=== PATIENT | female | born 1950 | race American Indian/Alaskan Native ===

== ENCOUNTER 2017-05-31 20:53 | Emergency (ER) | payer MEDICARE, MEDICAID ==
[2017-05-31 21:01] VITALS: BP 160/82
--- NOTE | 2017-05-31 21:12 | EDM.PDOC ---
ED HPI GENERAL MEDICAL PROBLEM - General Chief Complaint: Chest Pain Stated Complaint: BREATHING IS NOT RIGHT, [id number] Time Seen by Provider: 05/31/17 21:08 Source of Information: Reports: Patient, Family, RN, RN Notes Reviewed History Limitations: Reports: No Limitations - History of Present Illness INITIAL COMMENTS - FREE TEXT/NARRATIVE: Pt presents to the ER with c/o left leg pain that began Wednesday after her dialysis session. She states tonight when she laid down she felt quite short of breath, and then experienced some chest pain. She states she is not having any chest pain at this time and the SOB has improved. She admits to chills and anxiety at times. She denies fever, N/V/D, cough, or cold. She states she has a history of AR in the past, renal failure, HTN, and DMII. Onset: Gradual Onset Date: 05/29/17 Location: Reports: Chest, Lower Extremity, Left Quality: Reports: Ache, Throbbing Severity: Mild Improves with: Reports: None Worsens with: Reports: None Associated Symptoms: Reports: Chest Pain, Shortness of Breath. Denies: Cough, cough w sputum, Nausea/Vomiting Left Lower Leg Pain Score (Numeric/FACES): 8 - Related Data Allergies Allergy/AdvReac Type Severity Reaction Status Date / Time acetaminophen [From Tylenol] Allergy Cannot Verified 06/23/16 20:08 Remember codeine Allergy Difficulty Verified 06/23/16 20:08 Breathing Iodinated Contrast- Oral and Allergy Difficulty Verified 06/23/16 20:[address] dye Allergy Renal Uncoded 04/24/16 13:38 Failure Home Meds: Home Meds Calcium Acetate [PhosLo] 667 mg PO TIDAC 09/03/14 [History] Omeprazole [Omeprazole] 20 mg PO DAILY 07/17/15 [History] Aspirin [Halfprin] 81 mg PO DAILY 09/24/15 [History] Cholecalciferol (Vitamin D3) [Vitamin D3] 1,000 unit PO DAILY 01/23/16 [History] Folic Acid/Vitamin B Comp W-C [Dialyvite] 1 tab PO DAILY 01/23/16 [History] Insulin Detemir [Levemir Flextouch] 28 unit SQ DAILY 01/23/16 [History] Simvastatin [Zocor] 20 mg PO DAILY 01/23/16 [History] oxyCODONE 5 mg PO BID PRN 01/23/16 [History] amLODIPine [Norvasc] 5 mg PO DAILY 01/29/16 [History] Past Medical History HEENT History: Reports: Impaired Vision Other HEENT History: legally blind Cardiovascular History: Reports: Afib, Angina, CAD, High Cholesterol, Hypertension, AR, Stents Respiratory History: Reports: None Gastrointestinal History: Reports: Colon Polyp Genitourinary History: Reports: Chronic Renal Insuffiency, Dialysis Other Genitourinary History: HX OF NEPHROTIC SYNDROME Other OB/BYN History: hyst at age 24yo Musculoskeletal History: Reports: Other (See Below) Other Musculoskeletal History: deteriorating spine Neurological History: Reports: Neuropathy, Diabetic Psychiatric History: Reports: None Endocrine/Metabolic History: Reports: Diabetes, Type II, IDDM Hematologic History: Reports: Anemia, Blood Transfusion(s), Iron Deficiency Immunologic History: Reports: Immunosuppression Oncologic (Cancer) History: Reports: None Other Dermatologic History: MRSA - Infectious Disease History Infectious Disease History: Reports: Chicken Pox, Measles, Mumps - Past Surgical History Cardiovascular Surgical History: Reports: Other (See Below) Social & Family History - Family History Family Medical History: Noncontributory - Tobacco Use Smoking Status *Q: Former Smoker Years of Tobacco use: 30 Packs/Tins Daily: 0.5 Used Tobacco, but Quit: Yes Month Tobacco Last Used: 2013 Second Hand Smoke Exposure: No - Caffeine Use Caffeine Use: Reports: None - Alcohol Use Days Per Week of Alcohol Use: 1 Number of Drinks Per Day: 3 Total Drinks Per Week: 3 - Recreational Drug Use Recreational Drug Use: No - Living Situation & Occupation Living situation: Reports: , with Spouse, with Family Occupation: Disabled ED ROS GENERAL - Review of Systems Review Of Systems: ROS reveals no pertinent complaints other than HPI. ED EXAM, GENERAL - Physical Exam Exam: See Below Exam Limited By: No Limitations General Appearance: Alert, WD/WN, No Apparent Distress Eye Exam: Bilateral Eye: Other (Eyes closed, patient legally blind) Ears: Normal External Exam, Hearing Grossly Normal Nose: Normal Inspection Throat/Mouth: Normal Inspection, Normal Voice, No Airway Compromise Head: Atraumatic, Normocephalic Neck: Normal Inspection, Supple, Non-Tender, Full Range of Motion Respiratory/Chest: No Respiratory Distress, No Accessory Muscle Use, Chest Non- Tender, Crackles (throughout) Cardiovascular: Normal Peripheral Pulses, Regular Rate, Rhythm, No Edema, No Gallop, No JVD, No Rub, Systolic Murmur (+2) Peripheral Pulses: 2+: Radial (L), Radial (R), Dorsalis Pedis (L), Dorsalis Pedis (R) GI/Abdominal: Normal Bowel Sounds, Soft, Non-Tender, No Organomegaly, No Distention, No Abnormal Bruit, No Mass (Female) Exam: Deferred Rectal (Female) Exam: Deferred Back Exam: Normal Inspection, Full Range of Motion Extremities: Normal Inspection, No Pedal Edema, Normal Capillary Refill, Leg Pain, Limited Range of Motion (left leg) Neurological: Alert, Oriented, CN II-XII Intact, Normal Cognition, Normal Gait, No Motor/Sensory Deficits Psychiatric: Normal Affect, Normal Mood Skin Exam: Warm, Dry, Intact, Normal Color, No Rash Lymphatic: No Adenopathy EKG INTERPRETATION EKG Date: 05/31/17 Time: 20:59 Rhythm: NSR Rate (Beats/Min): 79 Course - Vital Signs Last Recorded V/S: Last Vital Signs Temp 97.3 F 05/31/17 20:56 Pulse 82 05/31/17 20:56 Resp 22 H 05/31/17 20:56 BP 160/82 H 05/31/17 20:56 Pulse Ox 100 05/31/17 20:56 - Orders/Labs/Meds Labs: Laboratory Tests 05/31/17 05/31/17 05/31/17 Range/Units 21:14 21:14 21:14 WBC 7.9 (5.0-10.0) 10^3/uL RBC 3.48 L (4.2-5.4) 10^6/uL Hgb 9.7 L D (12.0-16.0) g/dL Hct 31.1 L (37.0-47.0) % MCV 89.4 (80-100) fL MCH 27.9 (27.0-34.0) pg MCHC 31.2 L (33.0-35.0) g/dL Plt Count 245 (150-450) 10^3/uL Neut % (Auto) 72.1 (42.2-75.2) % Lymph % (Auto) 16.3 L (20.5-50.1) % [place] % (Auto) 6.9 (2-8) % Eos % (Auto) 4.2 H (1.0-3.0) % Baso % (Auto) 0.5 (0.0-1.0) % D-Dimer, Quantitative 844 H (0-400) ng/mL Sodium 135 (135-145) mmol/L Potassium 3.9 (3.6-5.0) mmol/L Chloride 99 L (101-111) mmol/L Carbon Dioxide 22.0 (21.0-31.0) mmol/L Anion Gap 17.9 BUN 50 H (7-18) mg/dL Creatinine 7.3 H D (0.6-1.3) mg/dL Est Cr Clr Drug Dosing 7.29 mL/min Estimated GFR (MDRD) 6 BUN/Creatinine Ratio 6.84 Glucose 339 H (74-105) mg/dL Calcium 8.0 L (8.4-10.2) mg/dl Total Bilirubin 0.4 (0.2-1.0) mg/dL AST 21 (10-42) IU/L ALT 16 (10-60) IU/L Alkaline Phosphatase 128 H (42-121) IU/L Troponin I 0.04 H* (0.00-0.02) ng/ml B-Natriuretic Peptide 2450 H (0-100) pg/ml Total Protein 7.3 (6.7-8.2) g/dl Albumin 3.8 (3.2-5.5) g/dl Globulin 3.5 Albumin/Globulin Ratio 1.09 - Radiology Interpretation Free Text/Narrative:: Portable Chest xray: Right basilar opacity, correlate for sx of pneumonia. Mild interstitial edema cannot be excluded. See rad report Departure - Departure Time of Disposition: 22:31 Disposition: DC/Tfer to [facility] 02 Reason for Transfer *Q: Other Condition: Fair Clinical Impression: Chronic renal disease, stage 5, glomerular filtration rate (GFR) less than or equal to 15 mL/min/1.73 square meter, Elevated d-dimer, SOB (shortness of breath ) Congestive heart failure Qualifiers: Congestive heart failure type: unspecified congestive heart failure type Congestive heart failure chronicity: chronic Qualified Code(s): I50.9 - Heart failure, unspecified Chest pain Qualifiers: Chest pain type: chest pain on breathing Qualified Code(s): R07.1 - Chest pain on breathing; R07.81 - Pleurodynia Forms: ED Department Discharge, Interfacility Transfer ES
--- NOTE | 2017-06-02 13:34 | EKG ---
05/31/2017 - KIRTI RUIZ - [facility] 12-lead EKG shows normal sinus rhythm with no significant ST elevation or ST depression. Nonspecific EKG tracings on lead V4 and V5. No significant ST elevation or ST depression. Nonspecific interventricular conduction delay noted. [facility] /[id number]
== END 2017-05-31 22:37 ==
LOC: DL.ED 20:53
DX: I13.2 Hypertensive heart and chronic kidney disease with heart failure and with stage 5 chronic kidney disease, or end stage renal disease (principal); I50.9 Heart failure, unspecified; N18.5 Chronic kidney disease, stage 5; E78.00 Pure hypercholesterolemia, unspecified; E11.22 Type 2 diabetes mellitus with diabetic chronic kidney disease; Z88.6 Allergy status to analgesic agent; Z91.041 Radiographic dye allergy status; Z79.899 Other long term (current) drug therapy; Z79.82 Long term (current) use of aspirin; Z87.891 Personal history of nicotine dependence
CPT/HCPCS: 36415; 71010; 80053; 83880; 84484; 85025; 85379; 93005; 93010; 99285

== ENCOUNTER 2017-07-18 16:13 | Emergency (ER) | payer MEDICARE, MEDICAID ==
[2017-07-18] MEDS ORDERED: Sodium Chloride 0.9% 10 ML Syringe FLUSH PRN (17:46)
[2017-07-18 18:32] LABS: ANION GAP 17.1
[2017-07-18] MEDS ORDERED: Sodium Polystyrene Sulfonate 15 GM/60 ML Susp 60 ML Bot PO ONE (18:45)
[2017-07-18] MEDS ORDERED: Calcium Chloride 10% 1 GM/10 ML Syringe IVPUSH ONE (18:45)
[2017-07-18] MEDS ORDERED: Albuterol 0.083% 2.5 MG/3 ML Neb Soln NEB ONE (18:47)
[2017-07-18] MEDS ORDERED: Insulin Regular, Human 100 Units/ML 3 ML Vial IV ONE (18:48)
[2017-07-18] MEDS ORDERED: 50% Dextrose in Water 50 ML Syringe IVPUSH ONE (18:49)
[2017-07-18 19:15] VITALS: BP 161/76
--- NOTE | 2017-07-18 20:18 | EDM.PDOC ---
ED HPI GENERAL MEDICAL PROBLEM - General Chief Complaint: Cardiovascular Problem Stated Complaint: IN BY AMBULANCE Time Seen by Provider: 07/18/17 17:36 Source of Information: Reports: Patient, EMS, EMS Notes Reviewed, Family, RN, RN Notes Reviewed History Limitations: Reports: No Limitations - History of Present Illness INITIAL COMMENTS - FREE TEXT/NARRATIVE: Pt presents to the ER per [facility] with c/o sore throat and body aches. She states she has been having abdominal pain and has not been feeling well for the past few days. She states she did not go to dialysis yesterday due to not feeling well. She admits to an upset stomach, diarrhea, SOB, a non-productive cough. Pt denies fever, chills, or chest pains although admits to palpitations at times. Onset: Gradual Abdominal Pain Score (Numeric/FACES): 5 - Related Data Allergies Allergy/AdvReac Type Severity Reaction Status Date / Time acetaminophen [From Tylenol] Allergy Cannot Verified 07/18/17 16:24 Remember codeine Allergy Difficulty Verified 07/18/17 16:24 Breathing Iodinated Contrast- Oral and Allergy Difficulty Verified 07/18/17 16:[address] dye Allergy Renal Uncoded 07/18/17 16:24 Failure Home Meds: Home Meds Calcium Acetate [PhosLo] 667 mg PO TIDAC 09/03/14 [History] Omeprazole [Omeprazole] 20 mg PO DAILY 07/17/15 [History] Aspirin [Halfprin] 81 mg PO DAILY 09/24/15 [History] Cholecalciferol (Vitamin D3) [Vitamin D3] 1,000 unit PO DAILY 01/23/16 [History] Folic Acid/Vitamin B Comp W-C [Dialyvite] 1 tab PO DAILY 01/23/16 [History] Insulin Detemir [Levemir Flextouch] 28 unit SQ DAILY 01/23/16 [History] Simvastatin [Zocor] 20 mg PO DAILY 01/23/16 [History] oxyCODONE 5 mg PO BID PRN 01/23/16 [History] amLODIPine [Norvasc] 5 mg PO DAILY 01/29/16 [History] Past Medical History HEENT History: Reports: Impaired Vision Other HEENT History: legally blind Cardiovascular History: Reports: Afib, Angina, CAD, High Cholesterol, Hypertension, PA, Stents Respiratory History: Reports: None Gastrointestinal History: Reports: Colon Polyp Genitourinary History: Reports: Chronic Renal Insuffiency, Dialysis Other Genitourinary History: HX OF NEPHROTIC SYNDROME [employer] History: Reports: None Other OB/BYN History: hyst at age 24yo Musculoskeletal History: Reports: Other (See Below) Other Musculoskeletal History: deteriorating spine Neurological History: Reports: Neuropathy, Diabetic Psychiatric History: Reports: None Endocrine/Metabolic History: Reports: Diabetes, Type II, IDDM Hematologic History: Reports: Anemia, Blood Transfusion(s), Iron Deficiency Immunologic History: Reports: Immunosuppression Oncologic (Cancer) History: Reports: None Other Dermatologic History: MRSA - Infectious Disease History Infectious Disease History: Reports: Chicken Pox, Measles, Mumps - Past Surgical History Cardiovascular Surgical History: Reports: Other (See Below) Social & Family History - Family History Family Medical History: Noncontributory - Tobacco Use Smoking Status *Q: Former Smoker Years of Tobacco use: 30 Packs/Tins Daily: 0.5 Used Tobacco, but Quit: Yes Month Tobacco Last Used: 2013 Tobacco Use Comment: patient denies Second Hand Smoke Exposure: No - Caffeine Use Caffeine Use: Reports: None - Alcohol Use Days Per Week of Alcohol Use: 1 Number of Drinks Per Day: 3 Total Drinks Per Week: 3 - Recreational Drug Use Recreational Drug Use: No - Living Situation & Occupation Living situation: Reports: , with Spouse, with Family Occupation: Disabled ED ROS GENERAL - Review of Systems Review Of Systems: ROS reveals no pertinent complaints other than HPI. ED EXAM, GENERAL - Physical Exam Exam: See Below Exam Limited By: No Limitations General Appearance: Alert, WD/WN, No Apparent Distress Eye Exam: Bilateral Eye: Other (Eyes closed bilaterally, pt legally blind) Ears: Normal External Exam, Hearing Grossly Normal Nose: Normal Inspection Throat/Mouth: Normal Inspection, Normal Lips, Normal Oropharynx, Normal Voice, No Airway Compromise Head: Atraumatic, Normocephalic Neck: Normal Inspection, Supple, Non-Tender, Full Range of Motion Respiratory/Chest: No Respiratory Distress, No Accessory Muscle Use, Chest Non- Tender, Decreased Breath Sounds Cardiovascular: Normal Peripheral Pulses, No Edema, No Gallop, No JVD, No Murmur , No Rub, Irregularly Irregular Peripheral Pulses: 2+: Radial (L), Radial (R) GI/Abdominal: Normal Bowel Sounds, Soft, No Organomegaly, No Distention, No Mass , Tender (Female) Exam: Deferred Rectal (Female) Exam: Deferred Back Exam: Normal Inspection, Full Range of Motion Extremities: Normal Inspection, Normal Range of Motion, Non-Tender, No Pedal Edema, Normal Capillary Refill, Other (AV fistula left upper arm) Neurological: Alert, Oriented, CN II-XII Intact, Normal Cognition, Normal Gait, Normal Reflexes, No Motor/Sensory Deficits Psychiatric: Normal Affect, Normal Mood Skin Exam: Warm, Dry, Intact, Normal Color, No Rash Lymphatic: No Adenopathy EKG INTERPRETATION EKG Date: 07/18/17 Course - Vital Signs Last Recorded V/S: Last Vital Signs Temp 97.2 F 07/18/17 19:13 Pulse 75 07/18/17 19:13 Resp 16 07/18/17 19:13 BP 161/76 H 07/18/17 19:13 Pulse Ox 100 07/18/17 19:13 - Orders/Labs/Meds Labs: Laboratory Tests 07/18/17 07/18/17 Range/Units 18:08 18:08 WBC 8.2 (5.0-10.0) 10^3/uL RBC 3.91 L (4.2-5.4) 10^6/uL Hgb 10.8 L (12.0-16.0) g/dL Hct 34.7 L (37.0-47.0) % MCV 88.7 (80-100) fL MCH 27.6 (27.0-34.0) pg MCHC 31.1 L (33.0-35.0) g/dL Plt Count 200 (150-450) 10^3/uL Neut % (Auto) 76.8 H (42.2-75.2) % Lymph % (Auto) 13.4 L (20.5-50.1) % [place] % (Auto) 5.6 (2-8) % Eos % (Auto) 3.3 H (1.0-3.0) % Baso % (Auto) 0.9 (0.0-1.0) % Sodium 134 L (135-145) mmol/L Potassium 6.1 H D (3.6-5.0) mmol/L Chloride 99 L (101-111) mmol/L Carbon Dioxide 24.0 (21.0-31.0) mmol/L Anion Gap 17.1 BUN 69 H (7-18) mg/dL Creatinine 7.6 H (0.6-1.3) mg/dL Est Cr Clr Drug Dosing 7.27 mL/min Estimated GFR (MDRD) 5 BUN/Creatinine Ratio 9.07 Glucose 220 H (74-105) mg/dL Calcium 8.6 (8.4-10.2) mg/dl Total Bilirubin 0.6 (0.2-1.0) mg/dL AST 21 (10-42) IU/L ALT 16 (10-60) IU/L Alkaline Phosphatase 102 (42-121) IU/L Troponin I 0.04 H* (0.00-0.02) ng/ml Total Protein 7.3 (6.7-8.2) g/dl Albumin 3.7 (3.2-5.5) g/dl Globulin 3.6 Albumin/Globulin Ratio 1.03 Meds: Medications Discontinued Medications Generic Name Dose Route Start Last Admin Trade Name Freq PRN Reason Stop Dose Admin Albuterol 2.5 mg 07/18/17 18:47 07/18/17 18:58 Proventil Neb Soln NEB 07/18/17 18:48 2.5 mg ONETIME ONE Administration Calcium Chloride 1 gm 07/18/17 18:45 07/18/17 19:00 Calcium Chloride 10% IVPUSH 07/18/17 18:46 1 gm ONETIME ONE Administration Dextrose/Water 50 ml 07/18/17 18:49 07/18/17 19:07 Dextrose 50% In Water IVPUSH 07/18/17 18:50 50 ml ONETIME ONE Administration Insulin Human Regular 10 unit 07/18/17 18:48 07/18/17 19:04 Humulin R IV 07/18/17 18:49 10 units ONETIME ONE Administration Protocol Loperamide HCl 2 mg 07/18/17 20:41 07/18/17 20:46 Imodium PO 07/18/17 20:42 2 mg ONETIME ONE Administration Sodium Chloride 10 ml 07/18/17 17:46 07/18/17 19:09 Saline Flush FLUSH 10 ml ASDIRECTED PRN Administration Keep Vein Open Sodium Polystyrene Sulfonate 30 gm 07/18/17 18:45 07/18/17 19:08 Kayexalate PO 07/18/17 18:46 30 gm ONETIME ONE Administration - Re-Assessments/Exams Free Text/Narrative Re-Assessment/Exam: 07/18/17 20:42 Upon initial presentation pt EKG showed a sinus rhythm. The rhythm became irregular with significant pauses. Pt case discussed with Dr. Griffith as well as Dr. Fisher. The patient was accepted by Dr. Fisher. No transport is available at this time due to other transfers. Pt will be transferred out with the next available team. Departure - Departure Time of Disposition: 21:40 Disposition: DC/Tfer to [facility] 02 Reason for Transfer *Q: Primary PCI Indicated Condition: Fair Clinical Impression: Hyperkalemia Arrhythmia Qualifiers: Arrhythmia type: unspecified cardiac arrhythmia Qualified Code(s): I49.9 - Cardiac arrhythmia, unspecified Chronic renal failure Qualifiers: Chronic kidney disease stage: stage 5 Qualified Code(s): N18.5 - Chronic kidney disease, stage 5 Referrals: PCP,None [Primary Care Provider] - Forms: ED Department Discharge, Interfacility Transfer ES
[2017-07-18] MEDS ORDERED: Loperamide 2 MG Cap PO ONE (20:41)
--- NOTE | 2017-07-19 18:00 | EKG ---
07/18/2017 - KIRTI RUIZ - TIME: 1614 hours. FINDINGS: EKG showed sinus rhythm, heart rate of 70 beats per minute. Normal axis. ST depressions on lateral leads. [facility] /[id number] MTDD
--- NOTE | 2017-08-20 07:39 | EKG ---
07/18/2017 - KIRTI RUIZ - FINDINGS: EKG done on a 66-year-old female on 05:40, July 18, 2017, showed sinus rhythm, heart rate of [address] depressions noted on lateral leads. [facility] /[id number] MTDD
== END 2017-07-18 21:38 ==
LOC: DL.ED 16:13
DX: E87.5 Hyperkalemia (principal); I49.9 Cardiac arrhythmia, unspecified; I12.0 Hypertensive chronic kidney disease with stage 5 chronic kidney disease or end stage renal disease; E11.22 Type 2 diabetes mellitus with diabetic chronic kidney disease; N18.5 Chronic kidney disease, stage 5; E11.40 Type 2 diabetes mellitus with diabetic neuropathy, unspecified; E78.00 Pure hypercholesterolemia, unspecified; I25.2 Old myocardial infarction; Z88.6 Allergy status to analgesic agent; Z88.5 Allergy status to narcotic agent; Z91.041 Radiographic dye allergy status; Z79.4 Long term (current) use of insulin; Z79.82 Long term (current) use of aspirin; Z87.891 Personal history of nicotine dependence
CPT/HCPCS: 36415; 80053; 84484; 85025; 87804; 93005; 93010; 96374; 96375; 99285; A9270; J1815; J7050; J7620; J7060

== ENCOUNTER 2018-09-08 11:31 | Emergency (ER) | payer MEDICARE, MEDICAID ==
[2018-09-08 11:46] VITALS: BP 170/74
[2018-09-08] MEDS ORDERED: Aspirin 81 MG Tab.Chew PO ONE (12:06)
--- NOTE | 2018-09-08 12:28 | EDM.PDOC ---
ED HPI GENERAL MEDICAL PROBLEM - General Chief Complaint: Chest Pain Stated Complaint: CHEST HURTS Time Seen by Provider: 09/08/18 12:15 Source of Information: Reports: Patient History Limitations: Reports: No Limitations - History of Present Illness INITIAL COMMENTS - FREE TEXT/NARRATIVE: This 67 yo female patient was brought to the ED from Dialysis due to right sided chest pain. The patient reports her right sided chest pain started this morning at about 0600. The patient went to her dialysis appointment, but dialysis was stopped after 30 minutes because of increased right sided chest pain. The patient initially reported to nursing staff that she was having right sided chest pain upon arrival in the ED. By the time the EKG, lab and nursing assessment was done, the patient reported her pain was mostly in the right side of her abdomen. The patient reports she does have an Echo scheduled with Dr. Tate on Wednesday. Onset: Today Onset Date: 09/08/18 Onset Time: 06:00 Duration: Constant Location: Reports: Chest (initially), Abdomen (during provider assessment) Quality: Reports: Ache, Dull Severity: Moderate Improves with: Reports: Rest Worsens with: Reports: Other Context: Reports: Other Associated Symptoms: Reports: Chest Pain Right Chest Pain Score (Numeric/FACES): 6 - Related Data Allergies Allergy/AdvReac Type Severity Reaction Status Date / Time codeine Allergy Severe Difficulty Verified 09/08/18 11:46 Breathing Iodinated Contrast- Oral and Allergy Severe Difficulty Verified 09/08/18 11:46 IV Dye Breathing acetaminophen [From Tylenol] Allergy Mild Other Verified 09/08/18 11:46 gabapentin Allergy Other Verified 09/08/18 11:46 ct dye Allergy Severe Renal Uncoded 09/08/18 11:46 Failure Home Meds: Home Meds Calcium Acetate [PhosLo] 667 mg PO TIDAC 09/03/14 [History] Omeprazole 20 mg PO DAILY 07/17/15 [History] Insulin Detemir [Levemir Flextouch] 10 unit SQ DAILY 01/23/16 [History] Simvastatin [Zocor] 20 mg PO DAILY 01/23/16 [History] amLODIPine [Norvasc] 5 mg PO DAILY 01/29/16 [History] Past Medical History HEENT History: Reports: Impaired Vision Other HEENT History: legally blind Cardiovascular History: Reports: Afib, Angina, CAD, High Cholesterol, Hypertension, [place], Pacemaker, Stents, Other (See Below) Other Cardiovascular History: DEFIBRILLATOR Respiratory History: Reports: COPD Gastrointestinal History: Reports: Cholelithiasis, Chronic Diarrhea, Colon Polyp , GERD, Other (See Below) Other Gastrointestinal History: GROWTH IN COLON Genitourinary History: Reports: Chronic Renal Insuffiency, Dialysis Other Genitourinary History: HX OF NEPHROTIC SYNDROME CYBER ANALYST History: Reports: None, Other CYBER ANALYST History: hyst at age 24yo Musculoskeletal History: Reports: Other (See Below) Other Musculoskeletal History: deteriorating spine Neurological History: Reports: Neuropathy, Diabetic Psychiatric History: Reports: Panic Attack Other Psychiatric History: Hx of panic attacks; has not has any for years Endocrine/Metabolic History: Reports: Diabetes, Type II, IDDM, Obesity/BMI 30+ Hematologic History: Reports: Anemia, Blood Transfusion(s), Iron Deficiency Immunologic History: Reports: Immunosuppression Oncologic (Cancer) History: Reports: None Dermatologic History: Reports: Other (See Below) Other Dermatologic History: MRSA - Infectious Disease History Infectious Disease History: Reports: Chicken Pox, Measles, MRSA, Mumps, Other ( See Below) Other Infectious Disease History: MRSA noted in chart, patient denies having it - Past Surgical History Cardiovascular Surgical History: Reports: Other (See Below) Other Cardiovascular Surgeries/Procedures: had faulty heart valves fixed Respiratory Surgical History: Reports: None GI Surgical History: Reports: Cholecystectomy, Colonoscopy, EGD, Polypectomy Female Surgical History: Reports: Hysterectomy Endocrine Surgical History: Reports: None Musculoskeletal Surgical History: Reports: None Social & Family History - Family History Family Medical History: Noncontributory - Tobacco Use Smoking Status *Q: Never Smoker Second Hand Smoke Exposure: No - Caffeine Use Caffeine Use: Reports: Coffee, Tea Caffeine Use Comment: 1 CUP OCCASSIONALLY OF COFFEE. 3 CUPS TEA - Recreational Drug Use Recreational Drug Use: No - Living Situation & Occupation Living situation: Reports: , with Spouse, with Family Occupation: Disabled ED ROS GENERAL - Review of Systems Review Of Systems: ROS reveals no pertinent complaints other than HPI. ED EXAM, GENERAL - Physical Exam Exam: See Below Exam Limited By: No Limitations General Appearance: Alert, WD/WN, Mild Distress, Obese Eye Exam: Bilateral Eye: EOMI, Other (The patient is leagally blind, but can see shadows.) Ears: Normal External Exam, Normal Canal, Hearing Grossly Normal, Normal TMs Nose: Normal Inspection, Normal Mucosa, No Blood Throat/Mouth: Normal Inspection, Normal Lips, Normal Teeth, Normal Gums, Normal Oropharynx, Normal Voice, No Airway Compromise Head: Atraumatic, Normocephalic Neck: Normal Inspection, Supple, Non-Tender, Full Range of Motion Respiratory/Chest: No Respiratory Distress Cardiovascular: Normal Peripheral Pulses, Regular Rate, Rhythm, Systolic Murmur , Other (mild pedial edema) GI/Abdominal: No Organomegaly, No Distention, No Abnormal Bruit, No Mass, Pelvis Stable, Tender (RUQ, RLQ and LUQ) (Female) Exam: Deferred Rectal (Female) Exam: Deferred Back Exam: Normal Inspection, Full Range of Motion, NT Extremities: Normal Range of Motion, Non-Tender, Normal Capillary Refill, Pedal Edema (mild) Neurological: Alert, Oriented, CN II-XII Intact, Normal Cognition Psychiatric: Normal Affect, Normal Mood Skin Exam: Warm, Dry, Intact, Normal Color, No Rash Lymphatic: No Adenopathy Course - Vital Signs Last Recorded V/S: Last Vital Signs Temp 36.6 C 09/08/18 11:38 Pulse 69 09/08/18 11:38 Resp 18 09/08/18 11:38 BP 170/74 H 09/08/18 11:38 Pulse Ox 100 09/08/18 11:38 - Orders/Labs/Meds Orders: Active Orders 24 hr Category Date Time Status EKG Documentation Completion [RC] URGENT Care 09/08/18 11:54 Active Labs: Laboratory Tests 09/08/18 09/08/18 09/08/18 Range/Units 12:18 12:18 12:18 WBC 5.4 (5.0-10.0) 10^3/uL RBC 4.00 L (4.2-5.4) 10^6/uL Hgb 11.8 L D (12.0-16.0) g/dL Hct 37.4 (37.0-47.0) % MCV 93.5 D (80-100) fL MCH 29.5 (27.0-34.0) pg MCHC 31.6 L (33.0-35.0) g/dL Plt Count 157 (150-450) 10^3/uL Neut % (Auto) 71.1 (42.2-75.2) % Lymph % (Auto) 17.5 L (20.5-50.1) % [place] % (Auto) 7.9 (2-8) % Eos % (Auto) 3.3 H (1.0-3.0) % Baso % (Auto) 0.2 (0.0-1.0) % D-Dimer, Quantitative (0-400) ng/mL Sodium 133 L (135-145) mmol/L Potassium 4.1 (3.6-5.0) mmol/L Chloride 94 L (101-111) mmol/L Carbon Dioxide 23.0 (21.0-31.0) mmol/L Anion Gap 20.1 BUN 44 H (7-18) mg/dL Creatinine 6.2 H D (0.6-1.3) mg/dL Est Cr Clr Drug Dosing 8.47 mL/min Estimated GFR (MDRD) 7 BUN/Creatinine Ratio 7.09 Glucose 97 (74-105) mg/dL Calcium 8.9 (8.4-10.2) mg/dl Total Bilirubin 1.2 H (0.2-1.0) mg/dL AST 25 (10-42) IU/L ALT 16 (10-60) IU/L Alkaline Phosphatase 216 H (42-121) IU/L Troponin I 0.05 H* (0.00-0.02) ng/ml B-Natriuretic Peptide 3010 H (0-100) pg/ml Total Protein 8.4 H (6.7-8.2) g/dl Albumin 4.3 (3.2-5.5) g/dl Globulin 4.1 Albumin/Globulin Ratio 1.05 03/21/19 Range/Units 12:18 WBC (5.0-10.0) 10^3/uL RBC (4.2-5.4) 10^6/uL Hgb (12.0-16.0) g/dL Hct (37.0-47.0) % MCV (80-100) fL MCH (27.0-34.0) pg MCHC (33.0-35.0) g/dL Plt Count (150-450) 10^3/uL Neut % (Auto) (42.2-75.2) % Lymph % (Auto) (20.5-50.1) % [place] % (Auto) (2-8) % Eos % (Auto) (1.0-3.0) % Baso % (Auto) (0.0-1.0) % D-Dimer, Quantitative 957 H (0-400) ng/mL Sodium (135-145) mmol/L Potassium (3.6-5.0) mmol/L Chloride (101-111) mmol/L Carbon Dioxide (21.0-31.0) mmol/L Anion Gap BUN (7-18) mg/dL Creatinine (0.6-1.3) mg/dL Est Cr Clr Drug Dosing mL/min Estimated GFR (MDRD) BUN/Creatinine Ratio Glucose (74-105) mg/dL Calcium (8.4-10.2) mg/dl Total Bilirubin (0.2-1.0) mg/dL AST (10-42) IU/L ALT (10-60) IU/L Alkaline Phosphatase (42-121) IU/L Troponin I (0.00-0.02) ng/ml B-Natriuretic Peptide (0-100) pg/ml Total Protein (6.7-8.2) g/dl Albumin (3.2-5.5) g/dl Globulin Albumin/Globulin Ratio Meds: Medications Discontinued Medications Generic Name Dose Route Start Last Admin Trade Name Freq PRN Reason Stop Dose Admin Aspirin 324 mg 09/08/18 12:06 09/08/18 12:21 Aspirin PO 09/08/18 12:07 324 mg ONETIME ONE Administration - Re-Assessments/Exams Free Text/Narrative Re-Assessment/Exam: 09/08/18 13:02 A call was placed to Dr. Tate (Cardiology). Dr. Tate was advised of the examination, x-ray, lab and EKG results from the visit with the patient. Dr. Tate agreed that the symptoms appear to be non-cardiac in origin. 09/08/18 14:44 The patient and family were advised of the remainder of the results. A CT of her abdomen was ordered for further evaluation of her abdominal pain. Departure - Departure Time of Disposition: 15:50 Disposition: Home, Self-Care 01 Condition: Fair Clinical Impression: Abdominal pain Qualifiers: Abdominal location: generalized Qualified Code(s): R10.84 - Generalized abdominal pain Ascites Qualifiers: Ascites type: other type Qualified Code(s): R18.8 - Other ascites Forms: ED Department Discharge Care Plan Goals: The patient and family were advised of the examination, lab, EKG, x-ray and CT results during the visit. The patient was given an oral dose of [place] (5/325) while in the emergency department. The patient was encouraged to follow-up with her primary care facility for continued evaluation and further treatment. If the patient has any additional symptoms or concerns, the patient should either return to the emergency department or visit her primary care facility. - My Orders Last 24 Hours: My Active Orders 09/08/18 11:54 EKG Documentation Completion [RC] URGENT - Assessment/Plan Last 24 Hours: My Active Orders 09/08/18 11:54 EKG Documentation Completion [RC] URGENT
[2018-09-08 12:45] LABS: ANION GAP 20.1
--- NOTE | 2018-09-08 12:45 | CR ---
Clinical history: 67-year-old female chest pain. Interpretation: Upright AP portable chest film confirms new cardiac pacemaker since exam 31 May 2017 (leads intact). External court recording monitor leads. Chronic cardiomyopathy with a left ventricular configuration but pulmonary vascularity relatively less congested than 2017. No new signs of alveolar edema or dependent pleural fluid accumulation. No new lung mass, focal lobar pneumonia, atelectasis or collapse. No pneumothorax. CONCLUSION: Subtle improvement venous congestion noted on 31 May 2017 exam.
--- NOTE | 2018-09-08 14:28 | CR ---
Clinical history: 67-year-old female with right-sided abdominal pain. Interpretation: Cardiac pacemaker leads upper margin of the film. Surgical clips gallbladder fossa RUQ. Solitary oval phlebolith-like radiopacities lower pelvis on the right. Levorotoscoliosis and multilevel lower lumbar disc disease/arthritis. Lung bases clear. No other foreign bodies and.... no sign of discrete abdominal soft tissue mass lesion or mechanical bowel obstruction. No free intraperitoneal air. Note: *There is a focal collection of gas over the right pubic ramus that could indicate incarcerated small bowel loop (inguinal hernia). Clinical correlation?
--- NOTE | 2018-09-08 15:22 | CT ---
Clinical history: 67-year-old hypertensive/diabetic female complaining of right-sided abdominal pain. History previous "cholecystectomy", hysterectomy and "colon surgery" this afebrile female diagnosed with "cholelithiasis" [address] exam[address] Suggestion "incarcerated loop of small bowel, right inguinal hernia" on plain film. Follow-up evaluation please. Scan technique: Volume acquisition of data emergency unenhanced CT scan of the abdomen and pelvis obtained while the patient was lying supine on the Siemens multi slice scanner [place], [place]. All data archived in the PACS system for storage, reformatting axial/sagittal/coronal planes and study. Interpretation: 1. Large heart and cardiac pacemaker. Asymmetric small dependent subpulmonic pleural effusion on the right. 2. Surgical clips (?) gallbladder fossa, RUQ but... adjacent gallbladder (with dependent intraluminal calcified gallstones). 3. Large volume of free intraperitoneal fluid (ascites) present on previous CT April 2018 but, increased volume today. Note: Ascites new since 27 Oct 2016 exam (appearance gallbladder and RUQ fossa unchanged) 4. Unenhanced liver, stomach, spleen, pancreas and adrenal glands unremarkable. Bilateral scarred, nonobstructed kidneys. 5. Calcified midline uterus. No new abdominal or pelvic mass lesion. No pelvic, mesenteric or retroperitoneal lymphadenopathy. *No ventral wall or inguinal hernias. 6. No sign of mechanical large/small bowel obstruction or free intraperitoneal air. Large diverticula in the ascending, right colon. 7. Multilevel lower lumbar disc disease with arthritic changes of the spine. CONCLUSION: Diverticulosis right colon. Diseased gallbladder. Ascites. Abnormal heart and small right pleural effusion.
[2018-09-08] MEDS ORDERED: Acetaminophen/HYDROcodone 325-5 MG Tab ONE (15:52)
[2018-09-08] MEDS ORDERED: Acetaminophen/HYDROcodone 325-5 MG Tab PO ONE (16:06)
== END 2018-09-08 16:05 | disposition home or self-care (01) ==
LOC: DL.ED 16:05
DX: R10.84 Generalized abdominal pain (principal); R18.8 Other ascites; I12.0 Hypertensive chronic kidney disease with stage 5 chronic kidney disease or end stage renal disease; N18.6 End stage renal disease; D63.1 Anemia in chronic kidney disease; E11.22 Type 2 diabetes mellitus with diabetic chronic kidney disease; I48.91 Unspecified atrial fibrillation; I25.2 Old myocardial infarction; E78.00 Pure hypercholesterolemia, unspecified; J44.9 Chronic obstructive pulmonary disease, unspecified; Z88.5 Allergy status to narcotic agent; Z88.8 Allergy status to other drugs, medicaments and biological substances; Z79.899 Other long term (current) drug therapy; Z79.4 Long term (current) use of insulin; Z99.2 Dependence on renal dialysis
CPT/HCPCS: 36415; 71045; 74019; 74176; 80053; 83880; 84484; 85025; 85379; 93005; 99285; A9270

== ENCOUNTER 2018-11-14 19:24 | Emergency (ER) | payer MEDICARE, MEDICAID ==
[2018-11-14 20:01] LABS: ANION GAP 14.5
--- NOTE | 2018-11-14 21:07 | EDM.PDOC ---
ED HPI GENERAL MEDICAL PROBLEM - General Chief Complaint: Upper Extremity Injury/Pain Stated Complaint: SHOULDER PAIN Time Seen by Provider: 11/14/18 19:40 Source of Information: Reports: Patient History Limitations: Reports: No Limitations - History of Present Illness INITIAL COMMENTS - FREE TEXT/NARRATIVE: ED with c/o right shoulder pain last yuliana started after onset of diarrhea. Chronic diarrhea , no change from usual. Denies shoulder pain at present, No chest pain or difficulty breathing, No fever or chills. Dialysis patient. Due in am. - Related Data Allergies Allergy/AdvReac Type Severity Reaction Status Date / Time codeine Allergy Severe Difficulty Verified 09/08/18 11:46 Breathing Iodinated Contrast- Oral and Allergy Severe Difficulty Verified 09/08/18 11:46 IV Dye Breathing acetaminophen [From Tylenol] Allergy Mild Other Verified 09/08/18 11:46 gabapentin Allergy Other Verified 09/08/18 11:46 ct dye Allergy Severe Renal Uncoded 09/08/18 11:46 Failure Home Meds: Home Meds Calcium Acetate [PhosLo] 667 mg PO TIDAC 09/03/14 [History] Omeprazole 20 mg PO DAILY 07/17/15 [History] Simvastatin [Zocor] 20 mg PO DAILY 01/23/16 [History] amLODIPine [Norvasc] 5 mg PO DAILY 01/29/16 [History] Past Medical History HEENT History: Reports: Impaired Vision Other HEENT History: legally blind Cardiovascular History: Reports: Afib, Angina, CAD, High Cholesterol, Hypertension, [place], Pacemaker, Stents, Other (See Below) Other Cardiovascular History: DEFIBRILLATOR Respiratory History: Reports: COPD Gastrointestinal History: Reports: Cholelithiasis, Chronic Diarrhea, Colon Polyp , GERD, Other (See Below) Other Gastrointestinal History: GROWTH IN COLON Genitourinary History: Reports: Chronic Renal Insuffiency, Dialysis Other Genitourinary History: HX OF NEPHROTIC SYNDROME POST SECONDARY PROFESSIONAL History: Reports: None, Other POST SECONDARY PROFESSIONAL History: hyst at age 24yo Musculoskeletal History: Reports: Other (See Below) Other Musculoskeletal History: deteriorating spine Neurological History: Reports: Neuropathy, Diabetic Psychiatric History: Reports: Panic Attack Other Psychiatric History: Hx of panic attacks; has not has any for years Endocrine/Metabolic History: Reports: Diabetes, Type II, IDDM, Obesity/BMI 30+ Hematologic History: Reports: Anemia, Blood Transfusion(s), Iron Deficiency Immunologic History: Reports: Immunosuppression Oncologic (Cancer) History: Reports: None Dermatologic History: Reports: Other (See Below) Other Dermatologic History: MRSA - Infectious Disease History Infectious Disease History: Reports: Chicken Pox, Measles, MRSA, Mumps, Other ( See Below) Other Infectious Disease History: MRSA noted in chart, patient denies having it - Past Surgical History Cardiovascular Surgical History: Reports: Other (See Below) Other Cardiovascular Surgeries/Procedures: had faulty heart valves fixed Respiratory Surgical History: Reports: None GI Surgical History: Reports: Cholecystectomy, Colonoscopy, EGD, Polypectomy Female Surgical History: Reports: Hysterectomy Endocrine Surgical History: Reports: None Musculoskeletal Surgical History: Reports: None Social & Family History - Family History Family Medical History: Noncontributory - Tobacco Use Smoking Status *Q: Never Smoker - Caffeine Use Caffeine Use: Reports: Coffee Caffeine Use Comment: 1 CUP OCCASSIONALLY OF COFFEE. 3 CUPS TEA - Living Situation & Occupation Living situation: Reports: , with Spouse, with Family Occupation: Disabled Review of Systems - Review of Systems Review Of Systems: ROS reveals no pertinent complaints other than HPI. ED EXAM, GENERAL - Physical Exam Exam: See Below Exam Limited By: No Limitations General Appearance: Alert, No Apparent Distress Eye Exam: Bilateral Eye: EOMI Ears: Normal External Exam, Hearing Grossly Normal Nose: Normal Inspection Throat/Mouth: Normal Inspection Head: Atraumatic, Normocephalic Neck: Normal Inspection, Full Range of Motion Respiratory/Chest: No Respiratory Distress, Crackles (bilateral bases) Cardiovascular: Normal Peripheral Pulses, Regular Rate, Rhythm GI/Abdominal: Normal Bowel Sounds, Soft, Non-Tender Back Exam: Full Range of Motion Extremities: Normal Inspection, Normal Range of Motion. No: Limited Range of Motion Neurological: Alert, Oriented, Normal Cognition Psychiatric: Normal Affect, Normal Mood Skin Exam: Warm, Dry, Intact, Normal Color Course - Vital Signs Last Recorded V/S: Last Vital Signs Temp 98.1 F 11/14/18 21:25 Pulse 68 11/14/18 21:25 Resp 18 11/14/18 21:25 BP 124/63 11/14/18 21:25 Pulse Ox 99 11/14/18 21:25 - Orders/Labs/Meds Labs: Laboratory Tests 11/14/18 11/14/18 11/14/18 Range/Units 19:26 19:26 19:26 WBC 6.2 (5.0-10.0) 10^3/uL RBC 3.48 L (4.2-5.4) 10^6/uL Hgb 10.7 L (12.0-16.0) g/dL Hct 32.6 L (37.0-47.0) % MCV 93.7 (80-100) fL MCH 30.7 (27.0-34.0) pg MCHC 32.8 L (33.0-35.0) g/dL Plt Count 162 (150-450) 10^3/uL Neut % (Auto) 73.1 (42.2-75.2) % Lymph % (Auto) 15.6 L (20.5-50.1) % [place] % (Auto) 7.0 (2-8) % Eos % (Auto) 4.1 H (1.0-3.0) % Baso % (Auto) 0.2 (0.0-1.0) % D-Dimer, Quantitative 1540 H (0-400) ng/mL Sodium 135 (135-145) mmol/L Potassium 4.5 (3.6-5.0) mmol/L Chloride 99 L (101-111) mmol/L Carbon Dioxide 26.0 (21.0-31.0) mmol/L Anion Gap 14.5 BUN 36 H (7-18) mg/dL Creatinine 6.5 H (0.6-1.3) mg/dL Est Cr Clr Drug Dosing 7.66 mL/min Estimated GFR (MDRD) 6 BUN/Creatinine Ratio 5.53 Glucose 99 (74-105) mg/dL Lactic Acid (0.5-2.2) mmol/L Calcium 8.7 (8.4-10.2) mg/dl Total Bilirubin 0.8 (0.2-1.0) mg/dL AST 13 (10-42) IU/L ALT 6 L (10-60) IU/L Alkaline Phosphatase 109 (42-121) IU/L CK-MB (CK-2) (0.4-4.7) ng/mL Troponin I 0.04 H* (0.00-0.02) ng/ml B-Natriuretic Peptide 4530 H (0-100) pg/ml Total Protein 6.9 (6.7-8.2) g/dl Albumin 3.4 (3.2-5.5) g/dl Globulin 3.5 Albumin/Globulin Ratio 0.97 Amylase 27 L (28-100) U/L Lipase 19 L (22-51) U/L 11/14/18 11/14/18 Range/Units 19:26 19:26 WBC (5.0-10.0) 10^3/uL RBC (4.2-5.4) 10^6/uL Hgb (12.0-16.0) g/dL Hct (37.0-47.0) % MCV (80-100) fL MCH (27.0-34.0) pg MCHC (33.0-35.0) g/dL Plt Count (150-450) 10^3/uL Neut % (Auto) (42.2-75.2) % Lymph % (Auto) (20.5-50.1) % [place] % (Auto) (2-8) % Eos % (Auto) (1.0-3.0) % Baso % (Auto) (0.0-1.0) % D-Dimer, Quantitative (0-400) ng/mL Sodium (135-145) mmol/L Potassium (3.6-5.0) mmol/L Chloride (101-111) mmol/L Carbon Dioxide (21.0-31.0) mmol/L Anion Gap BUN (7-18) mg/dL Creatinine (0.6-1.3) mg/dL Est Cr Clr Drug Dosing mL/min Estimated GFR (MDRD) BUN/Creatinine Ratio Glucose (74-105) mg/dL Lactic Acid 0.8 (0.5-2.2) mmol/L Calcium (8.4-10.2) mg/dl Total Bilirubin (0.2-1.0) mg/dL AST (10-42) IU/L ALT (10-60) IU/L Alkaline Phosphatase (42-121) IU/L CK-MB (CK-2) 0.70 (0.4-4.7) ng/mL Troponin I (0.00-0.02) ng/ml B-Natriuretic Peptide (0-100) pg/ml Total Protein (6.7-8.2) g/dl Albumin (3.2-5.5) g/dl Globulin Albumin/Globulin Ratio Amylase (28-100) U/L Lipase (22-51) U/L Meds: Medications Discontinued Medications Generic Name Dose Route Start Last Admin Trade Name Tha PRN Reason Stop Dose Admin Hydrocodone Bitart/Acetaminophen Confirm 11/14/18 21:19 [place] 325-10 Mg Administered 11/14/18 21:20 Dose 1 tab .ROUTE .STK-MED ONE - Radiology Interpretation Free Text/Narrative:: CXR cardiomegaly, persistent vascular congestion, see report Departure - Departure Time of Disposition: 21:18 Disposition: Home, Self-Care 01 Condition: Good Clinical Impression: End stage renal disease on dialysis, CHF, Congestive heart failure, Chronic diarrhea Shoulder pain, right Qualifiers: Chronicity: acute Qualified Code(s): M25.511 - Pain in right shoulder - Discharge Information *PRESCRIPTION DRUG MONITORING PROGRAM REVIEWED*: Not Applicable *COPY OF PRESCRIPTION DRUG MONITORING REPORT IN PATIENT JAMESON: Not Applicable Instructions: Food Choices to Help Relieve Diarrhea, Adult, Chronic Diarrhea, Joint Pain, [id number] Referrals: PCP,None [Primary Care Provider] - Forms: ED Department Discharge Additional Instructions: dialysis in am limit fluids [place] 5/325 one at bed time follow up if symptoms worsen , breathing difficulty, chest pain
[2018-11-14] MEDS ORDERED: Acetaminophen/HYDROcodone 325-10 MG Tab ONE (21:19)
[2018-11-14 21:51] VITALS: BP 124/63; PULSE 68
== END 2018-11-14 21:25 | disposition home or self-care (01) ==
LOC: DL.ED 19:24
DX: K52.9 Noninfective gastroenteritis and colitis, unspecified (principal); M25.511 Pain in right shoulder; I13.2 Hypertensive heart and chronic kidney disease with heart failure and with stage 5 chronic kidney disease, or end stage renal disease; E11.22 Type 2 diabetes mellitus with diabetic chronic kidney disease; N18.6 End stage renal disease; I50.9 Heart failure, unspecified; Z99.2 Dependence on renal dialysis; E11.40 Type 2 diabetes mellitus with diabetic neuropathy, unspecified; J44.9 Chronic obstructive pulmonary disease, unspecified; I48.91 Unspecified atrial fibrillation; I25.10 Atherosclerotic heart disease of native coronary artery without angina pectoris; Z88.5 Allergy status to narcotic agent; Z91.041 Radiographic dye allergy status; Z88.6 Allergy status to analgesic agent; Z88.8 Allergy status to other drugs, medicaments and biological substances
CPT/HCPCS: 36415; 71046; 80053; 82150; 82553; 83605; 83690; 83880; 84484; 85025; 85379; 93005; 99283; 99285-25

== ENCOUNTER 2019-03-21 21:09 | Emergency (ER) | payer MEDICARE, MEDICAID ==
[2019-03-21 21:50] VITALS: BP 138/64; PULSE 64
--- NOTE | 2019-03-21 22:15 | EDM.PDOC ---
ED HPI GENERAL MEDICAL PROBLEM - General Chief Complaint: Lower Extremity Injury/Pain Stated Complaint: PT FELL AND INJURED L LEG Time Seen by Provider: 03/21/19 22:10 Source of Information: Reports: Patient History Limitations: Reports: No Limitations - History of Present Illness INITIAL COMMENTS - FREE TEXT/NARRATIVE: This 68 yo female patient reports to the ED due to left knee pain. The patient reports she fell this morning while on her way to dialysis directly onto her left knee. The patient reports she fell last week and injured her left ankle. This morning she reports tripping due to the boot on her left foot. The patient reports inability to walk due to the knee pain and boot on her foot. Onset: Today Duration: Constant Location: Reports: Lower Extremity, Left Quality: Reports: Ache, Dull Severity: Moderate Improves with: Reports: Rest Worsens with: Reports: Movement Context: Reports: Trauma (ground level fall with no loss of consciousness) Associated Symptoms: Reports: No Other Symptoms Left Knee Pain Score (Numeric/FACES): 7 - Related Data Allergies Allergy/AdvReac Type Severity Reaction Status Date / Time codeine Allergy Severe Difficulty Verified 03/21/19 21:36 Breathing Iodinated Contrast Media Allergy Severe Difficulty Verified 03/21/19 21:36 Breathing acetaminophen [From Tylenol] Allergy Mild Other Verified 03/21/19 21:36 gabapentin Allergy Other Verified 03/21/19 21:36 ct dye Allergy Severe Renal Uncoded 03/21/19 21:36 Failure Home Meds: Home Meds Calcium Acetate [PhosLo] 667 mg PO TIDAC 09/03/14 [History] Omeprazole 20 mg PO DAILY 07/17/15 [History] Simvastatin [Zocor] 20 mg PO DAILY 01/23/16 [History] amLODIPine [Norvasc] 5 mg PO DAILY 01/29/16 [History] Bumetanide 2 mg PO DAILY 03/21/19 [History] Past Medical History HEENT History: Reports: Impaired Vision Other HEENT History: legally blind Cardiovascular History: Reports: Afib, Angina, CAD, High Cholesterol, Hypertension, [place], Pacemaker, Stents, Other (See Below) Other Cardiovascular History: DEFIBRILLATOR Respiratory History: Reports: COPD Gastrointestinal History: Reports: Cholelithiasis, Chronic Diarrhea, Colon Polyp , GERD, Other (See Below) Other Gastrointestinal History: GROWTH IN COLON Genitourinary History: Reports: Chronic Renal Insuffiency, Dialysis Other Genitourinary History: HX OF NEPHROTIC SYNDROME NEGATIVE TURNER APPRENTICE History: Reports: None, Other NEGATIVE TURNER APPRENTICE History: hyst at age 24yo Musculoskeletal History: Reports: Other (See Below) Other Musculoskeletal History: deteriorating spine Neurological History: Reports: Neuropathy, Diabetic Psychiatric History: Reports: Panic Attack Other Psychiatric History: Hx of panic attacks; has not has any for years Endocrine/Metabolic History: Reports: Diabetes, Type II, IDDM, Obesity/BMI 30+ Hematologic History: Reports: Anemia, Blood Transfusion(s), Iron Deficiency Immunologic History: Reports: Immunosuppression Oncologic (Cancer) History: Reports: None Dermatologic History: Reports: Other (See Below) Other Dermatologic History: MRSA - Infectious Disease History Infectious Disease History: Reports: Chicken Pox, Measles, MRSA, Mumps, Other ( See Below) Other Infectious Disease History: MRSA noted in chart, patient denies having it - Past Surgical History Cardiovascular Surgical History: Reports: Other (See Below) Other Cardiovascular Surgeries/Procedures: had faulty heart valves fixed Respiratory Surgical History: Reports: None GI Surgical History: Reports: Cholecystectomy, Colonoscopy, EGD, Polypectomy Female Surgical History: Reports: Hysterectomy Endocrine Surgical History: Reports: None Musculoskeletal Surgical History: Reports: None Social & Family History - Family History Family Medical History: Noncontributory - Tobacco Use Smoking Status *Q: Unknown Ever Smoked - Caffeine Use Caffeine Use: Reports: Coffee, Tea Caffeine Use Comment: 1 CUP OCCASSIONALLY OF COFFEE. 3 CUPS TEA - Recreational Drug Use Recreational Drug Use: No - Living Situation & Occupation Living situation: Reports: , with Spouse, with Family Occupation: Disabled Review of Systems - Review of Systems Review Of Systems: ROS reveals no pertinent complaints other than HPI. ED EXAM, GENERAL - Physical Exam Exam: See Below Exam Limited By: No Limitations General Appearance: Alert, WD/WN, Moderate Distress Eye Exam: Bilateral Eye: EOMI, Normal Inspection, PERRL Nose: Normal Inspection, Normal Mucosa, No Blood Throat/Mouth: Normal Inspection, Normal Lips, Normal Teeth, Normal Gums, Normal Oropharynx, Normal Voice, No Airway Compromise Head: Atraumatic, Normocephalic Neck: Normal Inspection, Supple, Non-Tender, Full Range of Motion Respiratory/Chest: No Respiratory Distress, Lungs Clear, Normal Breath Sounds, No Accessory Muscle Use, Chest Non-Tender Cardiovascular: Normal Peripheral Pulses, Regular Rate, Rhythm, No Edema, No Gallop, No JVD, No Murmur, No Rub GI/Abdominal: Normal Bowel Sounds, Soft, Non-Tender, No Organomegaly, No Distention, No Abnormal Bruit, No Mass (Female) Exam: Deferred Rectal (Female) Exam: Deferred Back Exam: Normal Inspection, Full Range of Motion, NT Extremities: Leg Pain (left knee pain with swelling ) Neurological: Alert, Oriented, CN II-XII Intact, Normal Cognition, Normal Gait, Normal Reflexes, No Motor/Sensory Deficits Psychiatric: Normal Affect, Normal Mood Skin Exam: Warm, Dry, Intact, Normal Color, No Rash Lymphatic: No Adenopathy Course - Vital Signs Last Recorded V/S: Last Vital Signs Temp 36.8 C 03/21/19 21:49 Pulse 64 03/21/19 21:49 Resp 18 03/21/19 21:49 BP 138/64 03/21/19 21:49 Pulse Ox 97 03/21/19 21:49 - Orders/Labs/Meds Orders: Active Orders 24 hr Category Date Time Status Knee 3V Lt [CR] Urgent Exams 03/21/19 21:50 Taken Departure - Departure Time of Disposition: 22:16 Disposition: Home, Self-Care 01 Condition: Fair Clinical Impression: Contusion of left knee Qualifiers: Encounter type: initial encounter Qualified Code(s): S80.02XA - Contusion of left knee, initial encounter - Discharge Information *PRESCRIPTION DRUG MONITORING PROGRAM REVIEWED*: Not Applicable *COPY OF PRESCRIPTION DRUG MONITORING REPORT IN PATIENT JAMESON: Not Applicable Instructions: Contusion, [id number], Crutch Use, Adult, [id number] Care Plan Goals: The patient was advised of the examination and x-ray results during the visit. The patient was given a set of crutches to help disperse her weight while ambulating. The patient was encouraged to rest, ice and elevate her left knee. If the patient has any additional symptoms or concerns, the patient should either return to the emergency department or visit her primary care facility. - My Orders Last 24 Hours: My Active Orders 03/21/19 21:50 Knee 3V Lt [CR] Urgent - Assessment/Plan Last 24 Hours: My Active Orders 03/21/19 21:50 Knee 3V Lt [CR] Urgent
== END 2019-03-21 22:50 | disposition home or self-care (01) ==
LOC: DL.ED 21:09
DX: S80.02XA Contusion of left knee, initial encounter (principal); I13.10 Hypertensive heart and chronic kidney disease without heart failure, with stage 1 through stage 4 chronic kidney disease, or unspecified chronic kidney disease; E11.22 Type 2 diabetes mellitus with diabetic chronic kidney disease; N18.9 Chronic kidney disease, unspecified; E11.40 Type 2 diabetes mellitus with diabetic neuropathy, unspecified; I25.119 Atherosclerotic heart disease of native coronary artery with unspecified angina pectoris; I48.91 Unspecified atrial fibrillation; I25.2 Old myocardial infarction; K21.9 Gastro-esophageal reflux disease without esophagitis; E66.9 Obesity, unspecified; Z68.24 Body mass index [BMI] 24.0-24.9, adult; Z88.5 Allergy status to narcotic agent; Z91.041 Radiographic dye allergy status; Z88.6 Allergy status to analgesic agent; Z88.8 Allergy status to other drugs, medicaments and biological substances; Z79.899 Other long term (current) drug therapy; W01.0XXA Fall on same level from slipping, tripping and stumbling without subsequent striking against object, initial encounter
CPT/HCPCS: 73562-LT; 99283-25

== ENCOUNTER 2019-10-03 07:00 | Emergency (ER) | payer MEDICARE, MEDICAID ==
--- NOTE | 2019-10-03 07:28 | EDM.PDOC ---
ED HPI GENERAL MEDICAL PROBLEM - General Chief Complaint: Chest Pain Stated Complaint: CHEST PAIN Time Seen by Provider: 10/03/19 07:15 Source of Information: Reports: Patient History Limitations: Reports: No Limitations - History of Present Illness INITIAL COMMENTS - FREE TEXT/NARRATIVE: This 69 yo female patient was sent to the ED from Dialysis due to right sided chest pain. The patient reports her pain actually started in her upper back this morning during her dialysis run (started at about 5:30). The patient reports her upper back pain was getting worse then she started to have pain throughout her neck. After the patient noticed the neck pain, she started to have right sided chest pain. The patient reports her neck pain is worse than anything at this time. The patient denies any history of falls or injury. The patient reports she has not taken anything for her pain (the patient can not take Tylenol due to liver problems and can not take NSAIDS due to kidney failure ). The patient reports she "never feels well" due to dialysis and IBS. The patient reports a history of kidney failure, CHF, ascites and previous GI bleeding. Onset: Today Onset Date: 10/03/19 Onset Time: 05:30 Duration: Constant Location: Reports: Neck (diffuse), Chest (right), Back (upper ) Quality: Reports: Ache, Dull Severity: Moderate Improves with: Reports: None Worsens with: Reports: None Context: Reports: Other Associated Symptoms: Reports: Chest Pain - Related Data Allergies Allergy/AdvReac Type Severity Reaction Status Date / Time codeine Allergy Severe Difficulty Verified 03/21/19 21:36 Breathing Iodinated Contrast Media Allergy Severe Difficulty Verified 03/21/19 21:36 Breathing acetaminophen [From Tylenol] Allergy Mild Other Verified 03/21/19 21:36 gabapentin Allergy Other Verified 03/21/19 21:36 ct dye Allergy Severe Renal Uncoded 03/21/19 21:36 Failure Home Meds: Home Meds Calcium Acetate [PhosLo] 667 mg PO TIDAC 09/03/14 [History] Omeprazole 20 mg PO DAILY 07/17/15 [History] Simvastatin [Zocor] 20 mg PO DAILY 01/23/16 [History] amLODIPine [Norvasc] 5 mg PO DAILY 01/29/16 [History] Bumetanide 2 mg PO DAILY 03/21/19 [History] cloNIDine HCL [Clonidine HCl] 0.1 mg PO DAILY 10/03/19 [History] Past Medical History HEENT History: Reports: Impaired Vision Other HEENT History: legally blind Cardiovascular History: Reports: Afib, Angina, CAD, High Cholesterol, Hypertension, CT, Pacemaker, Stents, Other (See Below) Other Cardiovascular History: DEFIBRILLATOR Respiratory History: Reports: COPD Gastrointestinal History: Reports: Cholelithiasis, Chronic Diarrhea, Colon Polyp , GERD, Other (See Below) Other Gastrointestinal History: GROWTH IN COLON Genitourinary History: Reports: Chronic Renal Insuffiency, Dialysis Other Genitourinary History: HX OF NEPHROTIC SYNDROME BIKE TECHNICIAN History: Reports: None, Other BIKE TECHNICIAN History: hyst at age 24yo Musculoskeletal History: Reports: Other (See Below) Other Musculoskeletal History: deteriorating spine Neurological History: Reports: Neuropathy, Diabetic Psychiatric History: Reports: Panic Attack Other Psychiatric History: Hx of panic attacks; has not has any for years Endocrine/Metabolic History: Reports: Diabetes, Type II, IDDM, Obesity/BMI 30+ Hematologic History: Reports: Anemia, Blood Transfusion(s), Iron Deficiency Immunologic History: Reports: Immunosuppression Oncologic (Cancer) History: Reports: None Dermatologic History: Reports: Other (See Below) Other Dermatologic History: MRSA - Infectious Disease History Infectious Disease History: Reports: Chicken Pox, Measles, MRSA, Mumps, Other ( See Below) Other Infectious Disease History: MRSA noted in chart, patient denies having it - Past Surgical History Cardiovascular Surgical History: Reports: Other (See Below) Other Cardiovascular Surgeries/Procedures: had faulty heart valves fixed Respiratory Surgical History: Reports: None GI Surgical History: Reports: Cholecystectomy, Colonoscopy, EGD, Polypectomy Female Surgical History: Reports: Hysterectomy Endocrine Surgical History: Reports: None Musculoskeletal Surgical History: Reports: None Social & Family History - Family History Family Medical History: Noncontributory - Caffeine Use Caffeine Use: Reports: Coffee, Tea Caffeine Use Comment: 1 CUP OCCASSIONALLY OF COFFEE. 3 CUPS TEA - Living Situation & Occupation Living situation: Reports: , with Spouse, with Family Occupation: Disabled ED ROS GENERAL - Review of Systems Review Of Systems: Comprehensive ROS is negative, except as noted in HPI. ED EXAM, GENERAL - Physical Exam Exam: See Below Exam Limited By: No Limitations General Appearance: Alert, WD/WN, No Apparent Distress Eye Exam: Bilateral Eye: EOMI Ears: Normal External Exam, Normal Canal, Hearing Grossly Normal, Normal TMs Nose: Normal Inspection, Normal Mucosa, No Blood Throat/Mouth: Normal Inspection Head: Atraumatic, Normocephalic Neck: Normal Inspection, Supple, Non-Tender, Full Range of Motion Respiratory/Chest: No Respiratory Distress, Lungs Clear, Normal Breath Sounds, No Accessory Muscle Use, Chest Non-Tender Cardiovascular: Normal Peripheral Pulses, Regular Rate, Rhythm, No Edema, Systolic Murmur GI/Abdominal: Normal Bowel Sounds, Soft, Tender (diffuse (patient reports the pain is normal due to IBS)) (Female) Exam: Deferred Rectal (Female) Exam: Deferred Back Exam: Normal Inspection, Full Range of Motion, NT Extremities: Normal Inspection, Normal Range of Motion, Non-Tender, Normal Capillary Refill, No Pedal Edema Neurological: Alert, Oriented, CN II-XII Intact, Normal Cognition, Normal Gait, Normal Reflexes, No Motor/Sensory Deficits Psychiatric: Normal Affect, Normal Mood Skin Exam: Warm, Dry, Intact, Normal Color, No Rash Lymphatic: No Adenopathy Course - Vital Signs Last Recorded V/S: Last Vital Signs Temp 36.4 C 10/03/19 07:27 Pulse 73 10/03/19 07:27 Resp 20 10/03/19 07:27 BP 166/67 H 10/03/19 07:27 Pulse Ox 100 10/03/19 07:27 - Orders/Labs/Meds Orders: Active Orders 24 hr Category Date Time Status EKG 12 Lead [EKG Documentation Completion] [RC] AM Care 10/03/19 11:30 Active EKG Documentation Completion [RC] URGENT Care 10/03/19 07:02 Active Chest 1V Frontal [CR] Urgent Exams 10/03/19 07:03 Ordered Labs: Laboratory Tests 10/03/19 10/03/19 10/03/19 Range/Units 07:16 07:34 07:34 WBC 6.3 (5.0-10.0) 10^3/uL RBC 3.80 L (4.2-5.4) 10^6/uL Hgb 12.1 (12.0-16.0) g/dL Hct 36.2 L (37.0-47.0) % MCV 95.3 (80-100) fL MCH 31.8 (27.0-34.0) pg MCHC 33.4 (33.0-35.0) g/dL Plt Count 162 (150-450) 10^3/uL Neut % (Auto) 69.7 (42.2-75.2) % Lymph % (Auto) 18.3 L (20.5-50.1) % [place] % (Auto) 6.3 (2-8) % Eos % (Auto) 4.6 H (1.0-3.0) % Baso % (Auto) 1.1 H (0.0-1.0) % Sodium 136 (136-145) mmol/L Potassium 4.2 (3.5-5.1) mmol/L Chloride 97 L (98-107) mmol/L Carbon Dioxide 31 (21-32) mmol/L Anion Gap 12.2 (7-13) mEq/L BUN 25 H (7-18) mg/dL Creatinine 4.73 H (0.55-1.02) mg/dL Est Cr Clr Drug Dosing 9.13 mL/min Estimated GFR (MDRD) 9 BUN/Creatinine Ratio 5.3 (No establ ref range) Glucose 108 H (74-99) mg/dL Lactic Acid 1.1 (0.4-2.0) mmol/L Calcium 8.5 (8.5-10.1) mg/dL Total Bilirubin 0.6 (0.2-1.0) mg/dL AST 13 L (15-37) U/L ALT 12 L (14-59) U/L Alkaline Phosphatase 122 H (46-116) U/L Troponin I 0.036 (0.000-0.056) ng/mL B-Natriuretic Peptide 2810 H (0-100) pg/ml Total Protein 7.7 (6.4-8.2) g/dL Albumin 3.6 (3.4-5.0) g/dL Globulin 4.1 Albumin/Globulin Ratio 0.9 04/14/20 Range/Units 11:29 WBC (5.0-10.0) 10^3/uL RBC (4.2-5.4) 10^6/uL Hgb (12.0-16.0) g/dL Hct (37.0-47.0) % MCV (80-100) fL MCH (27.0-34.0) pg MCHC (33.0-35.0) g/dL Plt Count (150-450) 10^3/uL Neut % (Auto) (42.2-75.2) % Lymph % (Auto) (20.5-50.1) % [place] % (Auto) (2-8) % Eos % (Auto) (1.0-3.0) % Baso % (Auto) (0.0-1.0) % Sodium (136-145) mmol/L Potassium (3.5-5.1) mmol/L Chloride (98-107) mmol/L Carbon Dioxide (21-32) mmol/L Anion Gap (7-13) mEq/L BUN (7-18) mg/dL Creatinine (0.55-1.02) mg/dL Est Cr Clr Drug Dosing mL/min Estimated GFR (MDRD) BUN/Creatinine Ratio (No establ ref range) Glucose (74-99) mg/dL Lactic Acid (0.4-2.0) mmol/L Calcium (8.5-10.1) mg/dL Total Bilirubin (0.2-1.0) mg/dL AST (15-37) U/L ALT (14-59) U/L Alkaline Phosphatase (46-116) U/L Troponin I 0.045 (0.000-0.056) ng/mL B-Natriuretic Peptide (0-100) pg/ml Total Protein (6.4-8.2) g/dL Albumin (3.4-5.0) g/dL Globulin Albumin/Globulin Ratio Departure - Departure Time of Disposition: 12:04 Disposition: Home, Self-Care 01 Condition: Fair Clinical Impression: Non-cardiac chest pain Instructions: Nonspecific Chest Pain, Adult, [id number] Forms: ED Department Discharge Care Plan Goals: The patient was advised of the examination, lab, EKG, chest x-ray, repeat EKG and repeat lab work during the visit. The patient was encouraged to continue to monitor herself for any additional symptoms or concerns. If the patient has any additional symptoms or concerns, the patient should either return to the emergency department or visit her primary care facility. Sepsis Event Note - Focused Exam Vital Signs: Vital Signs Temp Pulse Resp BP Pulse Ox 10/03/19 07:27 36.4 C 73 20 166/67 H 100 Date Exam was Performed: 10/03/19 Time Exam was Performed: 12:04 - My Orders Last 24 Hours: My Active Orders 10/03/19 07:02 EKG Documentation Completion [RC] URGENT 10/03/19 07:03 Chest 1V Frontal [CR] Urgent 10/03/19 11:30 EKG 12 Lead [EKG Documentation Completion] [RC] AM - Assessment/Plan Last 24 Hours: My Active Orders 10/03/19 07:02 EKG Documentation Completion [RC] URGENT 10/03/19 07:03 Chest 1V Frontal [CR] Urgent 10/03/19 11:30 EKG 12 Lead [EKG Documentation Completion] [RC] AM
[2019-10-03 07:36] VITALS: BP 166/67; PULSE 73
[2019-10-03 08:01] LABS: ANION GAP 12.2 mEq/L (7-13)
== END 2019-10-03 12:15 | disposition home or self-care (01) ==
LOC: DL.ED 07:00
DX: R07.89 Other chest pain (principal); I48.91 Unspecified atrial fibrillation; I25.10 Atherosclerotic heart disease of native coronary artery without angina pectoris; E78.00 Pure hypercholesterolemia, unspecified; I12.9 Hypertensive chronic kidney disease with stage 1 through stage 4 chronic kidney disease, or unspecified chronic kidney disease; E11.22 Type 2 diabetes mellitus with diabetic chronic kidney disease; N18.9 Chronic kidney disease, unspecified; I25.2 Old myocardial infarction; J44.9 Chronic obstructive pulmonary disease, unspecified; K21.9 Gastro-esophageal reflux disease without esophagitis; E66.9 Obesity, unspecified; Z68.26 Body mass index [BMI] 26.0-26.9, adult; E11.40 Type 2 diabetes mellitus with diabetic neuropathy, unspecified; Z88.5 Allergy status to narcotic agent; Z91.041 Radiographic dye allergy status; Z88.8 Allergy status to other drugs, medicaments and biological substances; Z79.899 Other long term (current) drug therapy
CPT/HCPCS: 36415; 71045; 80053; 82962; 83605; 83880; 84484; 85025; 93005; 99285-25

== ENCOUNTER 2019-12-03 17:31 | Emergency (ER) | payer MEDICARE, MEDICAID ==
[2019-12-03 18:53] VITALS: BP 136/57; PULSE 55
[2019-12-03 19:47] LABS: ANION GAP 12.6 mEq/L (7-13); CHLORIDE,CL 98 mmol/L (98-107); SODIUM,NA 137 mmol/L (136-145)
--- NOTE | 2019-12-03 20:31 | EDM.PDOC ---
ED HPI GENERAL MEDICAL PROBLEM - General Chief Complaint: General Stated Complaint: high blood pressure Time Seen by Provider: 12/03/19 19:30 Source of Information: Reports: Patient History Limitations: Reports: No Limitations - History of Present Illness INITIAL COMMENTS - FREE TEXT/NARRATIVE: ED with c/o high blood pressure, had been checking reading through day and getting 160-170, worried potassium was elevated or phosphorus high. No symptoms. No chest pain headache or dizziness. - Related Data Allergies Allergy/AdvReac Type Severity Reaction Status Date / Time codeine Allergy Severe Difficulty Verified 12/03/19 18:49 Breathing Iodinated Contrast Media Allergy Severe Difficulty Verified 12/03/19 18:49 Breathing acetaminophen [From Tylenol] Allergy Mild Other Verified 12/03/19 18:49 gabapentin Allergy Other Verified 12/03/19 18:49 ct dye Allergy Severe Renal Uncoded 03/21/19 21:36 Failure Home Meds: Home Meds Calcium Acetate [PhosLo] 667 mg PO TIDAC 09/03/14 [History] Omeprazole 20 mg PO DAILY 07/17/15 [History] Simvastatin [Zocor] 20 mg PO DAILY 01/23/16 [History] amLODIPine [Norvasc] 5 mg PO DAILY 01/29/16 [History] Bumetanide 2 mg PO DAILY 03/21/19 [History] cloNIDine HCL [Clonidine HCl] 0.1 mg PO DAILY 10/03/19 [History] Past Medical History HEENT History: Reports: Impaired Vision Other HEENT History: legally blind Cardiovascular History: Reports: Afib, Angina, CAD, High Cholesterol, Hypertension, [place], Pacemaker, Stents, Other (See Below) Other Cardiovascular History: DEFIBRILLATOR Respiratory History: Reports: COPD Gastrointestinal History: Reports: Cholelithiasis, Chronic Diarrhea, Colon Polyp , GERD, Other (See Below) Other Gastrointestinal History: GROWTH IN COLON Genitourinary History: Reports: Chronic Renal Insuffiency, Dialysis Other Genitourinary History: HX OF NEPHROTIC SYNDROME 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: Reports: 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, Other 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 age 24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 Musculoskeletal History: Reports: Other (See Below) Other Musculoskeletal History: deteriorating spine Neurological History: Reports: Neuropathy, Diabetic Psychiatric History: Reports: Panic Attack Other Psychiatric History: Hx of panic attacks; has not has any for years Endocrine/Metabolic History: Reports: Diabetes, Type II, IDDM, Obesity/BMI 30+ Hematologic History: Reports: Anemia, Blood Transfusion(s), Iron Deficiency Immunologic History: Reports: Immunosuppression Oncologic (Cancer) History: Reports: None Dermatologic History: Reports: Other (See Below) Other Dermatologic History: MRSA - Infectious Disease History Infectious Disease History: Reports: Chicken Pox, Measles, MRSA, Mumps, Other ( See Below) Other Infectious Disease History: MRSA noted in chart, patient denies having it - Past Surgical History Cardiovascular Surgical History: Reports: Other (See Below) Other Cardiovascular Surgeries/Procedures: had faulty heart valves fixed Respiratory Surgical History: Reports: None GI Surgical History: Reports: Cholecystectomy, Colonoscopy, EGD, Polypectomy Female Surgical History: Reports: Hysterectomy Endocrine Surgical History: Reports: None Musculoskeletal Surgical History: Reports: None Social & Family History - Family History Family Medical History: Noncontributory - Tobacco Use Smoking Status *Q: Never Smoker - Caffeine Use Caffeine Use: Reports: None Caffeine Use Comment: 1 CUP OCCASSIONALLY OF COFFEE. 3 CUPS TEA - Recreational Drug Use Recreational Drug Use: No - Living Situation & Occupation Living situation: Reports: , with Spouse, with Family Occupation: Disabled ED ROS GENERAL - Review of Systems Review Of Systems: Comprehensive ROS is negative, except as noted in HPI. ED EXAM, GENERAL - Physical Exam Exam: See Below Exam Limited By: No Limitations General Appearance: Alert, No Apparent Distress, Anxious Eye Exam: Bilateral Eye: Other (blind) Ears: Normal External Exam, Normal Canal, Normal TMs Nose: Normal Inspection Throat/Mouth: Normal Inspection Head: Atraumatic, Normocephalic Neck: Normal Inspection, Full Range of Motion Respiratory/Chest: No Respiratory Distress, Lungs Clear, Normal Breath Sounds Cardiovascular: Normal Peripheral Pulses, Regular Rate, Rhythm GI/Abdominal: Normal Bowel Sounds, Soft Back Exam: Normal Inspection. No: CVA Tenderness (L), CVA Tenderness (R) Extremities: Normal Inspection Neurological: Alert, Oriented, Normal Cognition Psychiatric: Normal Affect, Normal Mood Skin Exam: Warm, Dry, Intact, Normal Color Course - Vital Signs Last Recorded V/S: Last Vital Signs Temp 97.9 F 12/03/19 18:49 Pulse 55 L 12/03/19 18:49 Resp 16 12/03/19 18:49 BP 136/57 L 12/03/19 18:49 Pulse Ox 100 12/03/19 18:49 - Orders/Labs/Meds Orders: Active Orders 24 hr Category Date Time Status Glucose [Blood Glucose Check, Bedside] [RC] ONETIME Care 12/03/19 19:19 Active Labs: Laboratory Tests 12/03/19 12/03/19 12/03/19 Range/Units 19:20 19:20 19:20 WBC 5.1 (5.0-10.0) 10^3/uL RBC 3.58 L (4.2-5.4) 10^6/uL Hgb 11.5 L (12.0-16.0) g/dL Hct 34.0 L (37.0-47.0) % MCV 95.0 (80-100) fL MCH 32.1 (27.0-34.0) pg MCHC 33.8 (33.0-35.0) g/dL Plt Count 158 (150-450) 10^3/uL Neut % (Auto) 67.3 (42.2-75.2) % Lymph % (Auto) 16.4 L (20.5-50.1) % [place] % (Auto) 11.5 H (2-8) % Eos % (Auto) 3.8 H (1.0-3.0) % Baso % (Auto) 1.0 (0.0-1.0) % Sodium 137 (136-145) mmol/L Potassium 4.6 (3.5-5.1) mmol/L Chloride 98 (98-107) mmol/L Carbon Dioxide 31 (21-32) mmol/L Anion Gap 12.6 (7-13) mEq/L BUN 32 H (7-18) mg/dL Creatinine 6.62 H* D (0.55-1.02) mg/dL Est Cr Clr Drug Dosing TNP Estimated GFR (MDRD) 6 BUN/Creatinine Ratio 4.8 (No establ ref range) Glucose 99 (74-99) mg/dL POC Glucose 109 H (70-105) mg/dl Calcium 8.6 (8.5-10.1) mg/dL Phosphorus 6.0 H (2.6-4.7) mg/dL Total Bilirubin 0.5 (0.2-1.0) mg/dL AST 16 (15-37) U/L ALT 17 (14-59) U/L Alkaline Phosphatase 97 (46-116) U/L B-Natriuretic Peptide 2400 H (0-100) pg/ml Total Protein 7.3 (6.4-8.2) g/dL Albumin 3.5 (3.4-5.0) g/dL Globulin 3.8 Albumin/Globulin Ratio 0.9 Departure - Departure Time of Disposition: 20:29 Disposition: Home, Self-Care 01 Condition: Good Clinical Impression: End stage renal disease on dialysis, Anxiety about health, Malaise - Discharge Information *PRESCRIPTION DRUG MONITORING PROGRAM REVIEWED*: No *COPY OF PRESCRIPTION DRUG MONITORING REPORT IN PATIENT JAMESON: No Instructions: Weakness, [id number] Forms: ED Department Discharge Additional Instructions: limit fluids take medication as prescribed follow up with primary care Sepsis Event Note (ED) - Evaluation Sepsis Screening Result: No Definite Risk - Focused Exam Vital Signs: Vital Signs Temp Pulse Resp BP Pulse Ox 12/03/19 18:49 97.9 F 55 L 16 136/57 L 100 - My Orders Last 24 Hours: My Active Orders 12/03/19 19:19 Glucose [Blood Glucose Check, Bedside] [] ONETIME - Assessment/Plan Last 24 Hours: My Active Orders 12/03/19 19:19 Glucose [Blood Glucose Check, Bedside] [RC] ONETIME
== END 2019-12-03 20:36 | disposition home or self-care (01) ==
LOC: DL.ED 17:31
DX: I12.0 Hypertensive chronic kidney disease with stage 5 chronic kidney disease or end stage renal disease (principal); N18.6 End stage renal disease; F41.9 Anxiety disorder, unspecified; E78.00 Pure hypercholesterolemia, unspecified; I25.2 Old myocardial infarction; J44.9 Chronic obstructive pulmonary disease, unspecified; E11.22 Type 2 diabetes mellitus with diabetic chronic kidney disease; K21.9 Gastro-esophageal reflux disease without esophagitis; I25.10 Atherosclerotic heart disease of native coronary artery without angina pectoris; I48.91 Unspecified atrial fibrillation; E11.40 Type 2 diabetes mellitus with diabetic neuropathy, unspecified; E66.9 Obesity, unspecified; Z88.5 Allergy status to narcotic agent; Z91.041 Radiographic dye allergy status; Z88.6 Allergy status to analgesic agent; Z88.8 Allergy status to other drugs, medicaments and biological substances; Z99.2 Dependence on renal dialysis; Z95.5 Presence of coronary angioplasty implant and graft
CPT/HCPCS: 36415; 80053; 82962; 83880; 84100; 85025; 99283

== ENCOUNTER 2019-12-18 05:53 | Day surgery (SDC) | payer MEDICARE, MEDICAID ==
[~2019-12-18 05:53] MED LIST: Dextrose 5%-0.45% NaCl 1,000 ML IV SCH; Sodium Chloride 0.9% 10 ML Syringe FLUSH PRN
[2019-12-18] MEDS ORDERED: fentaNYL 100 MCG/2 ML SDV IV ONE ×3 (05:54→07:05)
[2019-12-18] MEDS ORDERED: Midazolam 1 MG/ML 2 ML SDV IV ONE ×4 (05:54→07:15)
[2019-12-18] MEDS ORDERED: Midazolam 1 MG/ML 2 ML SDV ONE (06:17)
[2019-12-18] MEDS ORDERED: fentaNYL 100 MCG/2 ML SDV ONE (06:17)
[2019-12-18 11:07] VITALS: BP 167/75; PULSE 58
--- NOTE | 2019-12-18 14:30 | OR ---
DATE: 12/18/2019 PROCEDURES: Total colonoscopy, terminal ileoscopy, cold snare polypectomy, and multiple pinch biopsies. INSTRUMENT USED: PCF-H190DL Olympus video colonoscope. PREMEDICATIONS: Fentanyl 100 mcg intravenous, Versed 2.5 mg intravenous. Nasal O2 cannula. The procedure was done under pulse oximetry, BP recording, and leadite worker. INDICATION: The patient with previous villotubular adenoma removal, diabetic with chronic kidney disease, and protracted diarrhea, unexplained and not responsive to medical measures. Colonoscopic examination is done for detection of any polypoid lesions and removal, biopsies to be obtained for any evidence of microscopic colitis, endoscopic hemostasis therapy if needed. DESCRIPTION OF PROCEDURE: Initial rectal exam showed lax anal sphincter. Rigid anoscopy was unremarkable. The colonoscope was passed with ease up to and beyond the ileocecal junction to visualize normal-appearing terminal ileum, photographs were taken of the terminal ileum and the cecum. Multiple pinch biopsies were taken from the terminal ileum and sent for histopathology. No bleeding was noted from any of the visualized areas at the commencement of the examination. The bowel preparation was found to be adequate, [place] scale 2 in all the regions, total score 6. Numerous scattered diverticula were noted along with deformity, more so in the distal left colon. No stricture. No vascular ectasia. No large isolated ulcerations seen. No evidence of diffuse inflammatory bowel disease in the form of friability, contact bleeding, or ulcerations. In the proximal transverse colon, 5 mm sized benign-appearing polyp was noted, photograph was taken, cold snare polypectomy was done, the tissue was retrieved and sent for histopathology. Second look right colon exam was done probing the proximal sides of folds and flexures using adequate distention, and clearing up the stool material, withdrawal of the scope was made. Multiple pinch biopsies were taken from the normal-appearing mucosa of the mid transverse colon, mid descending colon, and rectosigmoid and sent for any histopathologic evidence of microscopic colitis. No bleeding was noted from any of the visualized areas at the completion of examination. IMPRESSION: 1. Diverticulosis. 2. Colonic polyp. The patient tolerated the procedure well. [facility] /[id number]
--- NOTE | 2019-12-18 14:55 | LETTER ---
12/18/2019 Hans Tate MD Cardiology Services [address] [place] [address] RE: EARNESTINE PAUL : [address] Tate: Ms. Earnestine Paul had colonoscopic examination done this morning and she tolerated the procedure well. I herewith send a copy of the endoscopy note and photographs for your review. Thank you. Sincerely, [facility] /[id number]
== END 2019-12-18 09:43 | disposition home or self-care (01) ==
LOC: DL.ENDO 05:53
PROVIDERS: ATTEND Internal Medicine Gastroenterology
DX: D12.3 Benign neoplasm of transverse colon (principal); K57.30 Diverticulosis of large intestine without perforation or abscess without bleeding; K62.89 Other specified diseases of anus and rectum; E78.5 Hyperlipidemia, unspecified; I25.10 Atherosclerotic heart disease of native coronary artery without angina pectoris; E11.21 Type 2 diabetes mellitus with diabetic nephropathy; E11.22 Type 2 diabetes mellitus with diabetic chronic kidney disease; N18.9 Chronic kidney disease, unspecified; Z99.2 Dependence on renal dialysis; Z86.010 Personal history of colon polyps; Z98.890 Other specified postprocedural states
CPT/HCPCS: 45380; 45385; J2250; J3010; J7042

== ENCOUNTER 2020-04-27 05:05 | Emergency (ER) | payer MEDICARE, MEDICAID ==
[2020-04-27 05:32] VITALS: BP 158/72; PULSE 73
--- NOTE | 2020-04-27 05:34 | EDM.PDOC ---
ED HPI GENERAL MEDICAL PROBLEM - General Chief Complaint: Gastrointestinal Problem Stated Complaint: DHIRREA Time Seen by Provider: 04/27/20 05:25 Source of Information: Reports: Patient History Limitations: Reports: Uncooperative - History of Present Illness INITIAL COMMENTS - FREE TEXT/NARRATIVE: This 69 yo female patient reports to the ED due to a week history of diarrhea. T he patient reports she has not been feeling well. When asked what is different, the patient got upset with questions. The patient was asked when she is supposed to have dialysis. The patient reported that she was supposed to have dialysis today. Then the patient reported she was at dialysis yesterday. The patient was asked what days of the week she was supposed to have dialysis. The patient responded that she was supposed to have dialysis today at 1:00. With each question, the patient became more agitated. The patient then stated that she just wanted to go and did not want to be seen. Onset: Unknown/Unsure Location: Reports: Abdomen Right Lower Abdomen Pain Score (Numeric/FACES): 9 - Related Data Allergies Allergy/AdvReac Type Severity Reaction Status Date / Time codeine Allergy Severe Difficulty Verified 12/18/19 06:03 Breathing Iodinated Contrast Media Allergy Severe Difficulty Verified 12/18/19 06:03 Breathing acetaminophen [From Tylenol] Allergy Mild Other Verified 12/18/19 06:03 gabapentin Allergy Other Verified 12/18/19 06:03 ct dye Allergy Severe Renal Uncoded 12/18/19 06:03 Failure Home Meds: Home Meds Calcium Acetate [PhosLo] 667 mg PO TIDAC 09/03/14 [History] Omeprazole 20 mg PO DAILY 07/17/15 [History] Simvastatin [Zocor] 20 mg PO DAILY 01/23/16 [History] amLODIPine [Norvasc] 5 mg PO DAILY 01/29/16 [History] Bumetanide 2 mg PO DAILY 03/21/19 [History] cloNIDine HCL [Clonidine HCl] 0.1 mg PO DAILY 10/03/19 [History] Past Medical History HEENT History: Reports: Impaired Vision Other HEENT History: legally blind Cardiovascular History: Reports: Afib, Angina, Arrhythmia, CAD, Cardiomyopathy, Heart Failure, Hypertension Other Cardiovascular History: DEFIBRILLATOR Respiratory History: Reports: COPD Gastrointestinal History: Reports: Diverticulosis, Gastritis, GI Bleed, Other (See Below) Other Gastrointestinal History: Status post colonic villotubular adenoma Genitourinary History: Reports: Dialysis, Renal Disease Other Genitourinary History: Nephrotic syndrome ROOFER History: Reports: None, Other ROOFER History: hyst at age 24yo Musculoskeletal History: Reports: Other (See Below) Other Musculoskeletal History: Sprain of psoas muscle and sprain of left foot. Pain in shoulder Neurological History: Reports: Headaches, Chronic Psychiatric History: Reports: Panic Attack Other Psychiatric History: Hx of panic attacks; has not has any for years Endocrine/Metabolic History: Reports: Diabetes, Type II, Hyperparathyroidism, Other (See Below) Other Endocrine/Metabolic History: Hyperkalemia, metabolic acidosis, hyperlipidemia Hematologic History: Reports: Anemia, Blood Transfusion(s), Iron Deficiency Immunologic History: Reports: Immunosuppression Oncologic (Cancer) History: Reports: None Dermatologic History: Reports: Other (See Below) Other Dermatologic History: MRSA - Infectious Disease History Infectious Disease History: Reports: Chicken Pox, Influenza, Measles, Mononucleosis Other Infectious Disease History: MRSA noted in chart, patient denies having it - Past Surgical History Cardiovascular Surgical History: Reports: Other (See Below) Other Cardiovascular Surgeries/Procedures: Cardiac cath stent Respiratory Surgical History: Reports: None GI Surgical History: Reports: Cholecystectomy, Colonoscopy, EGD, Polypectomy Female Surgical History: Reports: Hysterectomy Endocrine Surgical History: Reports: None Musculoskeletal Surgical History: Reports: None Social & Family History - Family History Family Medical History: Noncontributory Cardiac: Reports: [place], Other (See Below) Other Cardiac Family History: Father of [place]. Brother in 50s [place] Endocrine/Metabolic: Reports: Diabetes, type II Other Endocrine/Metabolic Family History: Mother has diabetes Oncologic: Reports: Colon Other Oncologic Family History: Mother had colon cancer - Tobacco Use Tobacco Use Status *Q: Current Status Unknown - Caffeine Use Caffeine Use: Reports: Coffee Other Caffeine Use: 3 cups of coffee Caffeine Use Comment: 1 CUP OCCASSIONALLY OF COFFEE. 3 CUPS TEA - Recreational Drug Use Recreational Drug Use: No - Living Situation & Occupation Living situation: Reports: , with Spouse, with Family Occupation: Disabled ED ROS GENERAL - Review of Systems Review Of Systems: Unable To Obtain Reason Not Obtained: The patient refused to answer questions ED EXAM, GI/ABD - Physical Exam Exam: Not Obtained (The patient choose not to have any further evaluation and left prior to any lab work or assessment.) Course - Vital Signs Last Recorded V/S: Last Vital Signs Temp 36.2 C 04/27/20 05:17 Pulse 73 04/27/20 05:17 Resp 17 04/27/20 05:17 BP 158/72 H 04/27/20 05:17 Pulse Ox 96 04/27/20 05:17 Departure - Departure Time of Disposition: 05:36 Disposition: Against Medical Advice 07 Condition: Undetermined Clinical Impression: Left against medical advice - Discharge Information *PRESCRIPTION DRUG MONITORING PROGRAM REVIEWED*: Not Applicable *COPY OF PRESCRIPTION DRUG MONITORING REPORT IN PATIENT JAMESON: Not Applicable Care Plan Goals: The patient refused to answer any questions regarding the history of her present illness and left prior to assessment. Sepsis Event Note (ED) - Evaluation Sepsis Screening Result: No Definite Risk - Focused Exam Vital Signs: Vital Signs Temp Pulse Resp BP Pulse Ox 04/27/20 05:17 36.2 C 73 17 158/72 H 96
== END 2020-04-27 05:33 | disposition left against medical advice (07) ==
LOC: DL.ED 05:05
DX: R19.7 Diarrhea, unspecified (principal); R45.1 Restlessness and agitation; R10.31 Right lower quadrant pain; I11.0 Hypertensive heart disease with heart failure; I50.9 Heart failure, unspecified; I25.10 Atherosclerotic heart disease of native coronary artery without angina pectoris; I48.91 Unspecified atrial fibrillation; J44.9 Chronic obstructive pulmonary disease, unspecified; E11.9 Type 2 diabetes mellitus without complications; E78.5 Hyperlipidemia, unspecified; Z88.5 Allergy status to narcotic agent; Z91.041 Radiographic dye allergy status; Z79.899 Other long term (current) drug therapy; Z90.49 Acquired absence of other specified parts of digestive tract; Z90.710 Acquired absence of both cervix and uterus; Z53.20 Procedure and treatment not carried out because of patient's decision for unspecified reasons
CPT/HCPCS: 99283

== ENCOUNTER 2020-05-02 09:49 | Emergency (ER) | payer MEDICARE, MEDICAID ==
[2020-05-02 10:32] VITALS: BP 109/43; PULSE 70
--- NOTE | 2020-05-02 11:28 | CR ---
EXAMINATION: Chest 1V Frontal SEX: Female AGE: 69 years CLINICAL HISTORY: 69-year-old "Covid positive" female with heart disease complaining of CHEST PAIN. Comparison CXR 03 October 2019. Interpretation: Abnormal but slightly improved since comparison film 03 October 2019 i.e. less congested. Chronic mild prominence of the cardiac silhouette with left ventricular configuration smaller in this patient with cardiac pacemaker (leads intact). Pulmonary vascularity less congested than on comparison exam and no new signs of alveolar edema or dependent pleural effusion. Chronic mild bronchiectatic like density in the right base. No new focal lobar consolidation, peripheral "groundglass" density, atelectasis or collapse. No pneumothorax or pneumomediastinum. No free subdiaphragmatic air. CONCLUSION: Slight improvement. No new cardiopulmonary abnormality.
[2020-05-02 11:37] LABS: ANION GAP 20.9 mEq/L (7-13)
--- NOTE | 2020-05-02 11:56 | EDM.PDOC ---
ED HPI GENERAL MEDICAL PROBLEM - General Chief Complaint: Gastrointestinal Problem Stated Complaint: COVID + Time Seen by Provider: 05/02/20 11:10 Source of Information: Reports: Patient, RN, RN Notes Reviewed, Other (dialysis) History Limitations: Reports: No Limitations - History of Present Illness INITIAL COMMENTS - FREE TEXT/NARRATIVE: Patient presents to ER with complaint of diarrhea persistent for the past 3 weeks. Patient states she is Covid positive, unsure of when she tested positive. When I contacted her dialysis unit they stated tomorrow she would be off of precautions/quarantine for Covid 19. Dialysis states the patient has only ran a total of 4 hours since April 21. Patient states she has been incontinent of stool for the past 3 weeks, and has been not able to stay at dialysis. Patient states everyone in her home is sick and unable to care for her. She complains of some shortness of breath, denies chest pains, nausea, vomiting. Patient denies fever or chills. Onset: Gradual Buttock Pain Score (Numeric/FACES): 5 - Related Data Allergies Allergy/AdvReac Type Severity Reaction Status Date / Time codeine Allergy Severe Difficulty Verified 05/02/20 16:34 Breathing Iodinated Contrast Media Allergy Severe Difficulty Verified 05/02/20 16:34 Breathing acetaminophen [From Tylenol] Allergy Mild Other Verified 05/02/20 16:34 gabapentin Allergy Other Verified 05/02/20 16:34 ct dye Allergy Severe Renal Uncoded 05/02/20 16:34 Failure Home Meds: Home Meds Calcium Acetate [PhosLo] 1,334 mg PO TIDAC 09/03/14 [History] amLODIPine [Norvasc] 5 mg PO DAILY 01/29/16 [History] cloNIDine HCL [Clonidine HCl] 0.1 mg PO BID 10/03/19 [History] Bumetanide [Bumex] 2 mg PO BID 05/02/20 [History] Dicyclomine [Bentyl] 20 mg PO Q6H PRN 05/02/20 [History] Dorzolamide HCl 1 drp EYERT BID 05/02/20 [History] atorvaSTATin [Lipitor] 20 mg PO DAILY 05/02/20 [History] B Complex W-C No.20/Folic Acid [[place] Caps Softgel] 1 mg PO DAILY 05/03/20 [History] Betamethasone Valerate [Valisone 0.1% Lotion] 1 applic TOP BID PRN 05/03/20 [History] Loperamide [Imodium] 2 mg PO TID 05/03/20 [History] Omeprazole 20 mg PO DAILY 05/03/20 [History] calcium polycarbophiL [Fibercon] 625 mg PO BID 05/03/20 [History] Past Medical History HEENT History: Reports: Impaired Vision Other HEENT History: legally blind Cardiovascular History: Reports: Afib, Angina, Arrhythmia, CAD, Cardiomyopathy, Heart Failure, Hypertension Other Cardiovascular History: DEFIBRILLATOR Respiratory History: Reports: COPD Gastrointestinal History: Reports: Diverticulosis, Gastritis, GI Bleed, Other (See Below) Other Gastrointestinal History: Status post colonic villotubular adenoma Genitourinary History: Reports: Dialysis, Renal Disease Other Genitourinary History: Nephrotic syndrome CATTLE DIPPER History: Reports: Other CATTLE DIPPER History: hyst at age 24yo Musculoskeletal History: Reports: Other (See Below) Other Musculoskeletal History: Sprain of psoas muscle and sprain of left foot. Pain in shoulder Neurological History: Reports: Headaches, Chronic Psychiatric History: Reports: Panic Attack Other Psychiatric History: Hx of panic attacks; has not has any for years Endocrine/Metabolic History: Reports: Diabetes, Type II, Hyperparathyroidism, Other (See Below) Other Endocrine/Metabolic History: Hyperkalemia, metabolic acidosis, hyperlipidemia Hematologic History: Reports: Anemia, Blood Transfusion(s), Iron Deficiency Immunologic History: Reports: Immunosuppression Oncologic (Cancer) History: Reports: None Dermatologic History: Reports: Other (See Below) Other Dermatologic History: MRSA - Infectious Disease History Infectious Disease History: Reports: MRSA Other Infectious Disease History: MRSA noted in chart, patient denies having it - Past Surgical History Cardiovascular Surgical History: Reports: Other (See Below) Other Cardiovascular Surgeries/Procedures: Cardiac cath stent Respiratory Surgical History: Reports: None GI Surgical History: Reports: Cholecystectomy, Colonoscopy, EGD, Polypectomy Female Surgical History: Reports: Hysterectomy Endocrine Surgical History: Reports: None Musculoskeletal Surgical History: Reports: None Social & Family History - Family History Family Medical History: No Pertinent Family History Cardiac: Reports: [place], Other (See Below) Other Cardiac Family History: Father of [place]. Brother in 50s [place] Endocrine/Metabolic: Reports: Diabetes, type II Other Endocrine/Metabolic Family History: Mother has diabetes Oncologic: Reports: Colon Other Oncologic Family History: Mother had colon cancer - Caffeine Use Caffeine Use: Reports: Coffee Other Caffeine Use: 3 cups of coffee Caffeine Use Comment: 1 CUP OCCASSIONALLY OF COFFEE. 3 CUPS TEA - Recreational Drug Use Recreational Drug Use: No - Living Situation & Occupation Living situation: Reports: , with Spouse, with Family Occupation: Disabled ED ROS GENERAL - Review of Systems Review Of Systems: Comprehensive ROS is negative, except as noted in HPI. ED EXAM, GENERAL - Physical Exam Exam: See Below Exam Limited By: No Limitations General Appearance: Alert, WD/WN, No Apparent Distress Eye Exam: Bilateral Eye: Other (legally blind ) Ears: Normal External Exam, Hearing Grossly Normal Nose: Normal Inspection Throat/Mouth: Normal Voice, No Airway Compromise, Other (dry mucous membranes) Head: Atraumatic, Normocephalic Neck: Normal Inspection, Supple, Non-Tender, Full Range of Motion Respiratory/Chest: Decreased Breath Sounds Cardiovascular: Normal Peripheral Pulses, Regular Rate, Rhythm, No Edema, No Gallop, No JVD, No Murmur, No Rub Peripheral Pulses: 2+: Radial (L), Radial (R) GI/Abdominal: Normal Bowel Sounds, Soft, Tender, Other (hyperactive) (Female) Exam: Deferred Rectal (Female) Exam: Deferred, Heme - Stool Back Exam: Normal Inspection, Full Range of Motion, NT Extremities: Normal Inspection, Normal Range of Motion, Non-Tender, Normal Capillary Refill, No Pedal Edema Neurological: Alert, Oriented, Normal Cognition Psychiatric: Normal Affect, Normal Mood Skin Exam: Warm, Dry, Intact, Normal Color, No Rash Lymphatic: No Adenopathy Course - Vital Signs Last Recorded V/S: Last Vital Signs Temp 97.2 F 05/02/20 10:28 Pulse 70 05/02/20 10:28 Resp 18 05/02/20 10:28 BP 109/43 L 05/02/20 10:28 Pulse Ox 94 L 05/02/20 10:28 - Orders/Labs/Meds Orders: Active Orders 24 hr Category Date Time Status CULTURE BLOOD [BC] Stat Lab 05/02/20 10:57 Received CULTURE BLOOD [BC] Stat Lab 05/02/20 11:02 Received Blood Culture x2 Reflex Set [OM.PC] Stat Oth 05/02/20 10:33 Ordered Isolation [COMM] Stat Oth 05/02/20 11:01 Active Labs: Laboratory Tests 05/02/20 05/02/20 05/02/20 Range/Units 10:57 10:57 10:57 WBC 3.9 L (5.0-10.0) 10^3/uL RBC 4.04 L (4.2-5.4) 10^6/uL Hgb 12.6 (12.0-16.0) g/dL Hct 38.3 (37.0-47.0) % MCV 94.8 (80-100) fL MCH 31.2 (27.0-34.0) pg MCHC 32.9 L (33.0-35.0) g/dL Plt Count 142 L (150-450) 10^3/uL Neut % (Auto) 77.4 H (42.2-75.2) % Lymph % (Auto) 11.3 L (20.5-50.1) % [place] % (Auto) 10.7 H (2-8) % Eos % (Auto) 0.3 L (1.0-3.0) % Baso % (Auto) 0.3 (0.0-1.0) % PT 10.7 (9.0-12.0) SEC INR 1.1 (0.9-1.2) Sodium 139 (136-145) mmol/L Potassium 3.9 (3.5-5.1) mmol/L Chloride 97 L (98-107) mmol/L Carbon Dioxide 25 (21-32) mmol/L Anion Gap 20.9 H (7-13) mEq/L BUN 38 H (7-18) mg/dL Creatinine 9.81 H* D (0.55-1.02) mg/dL Est Cr Clr Drug Dosing 5.21 mL/min Estimated GFR (MDRD) 4 BUN/Creatinine Ratio 3.9 (No establ ref range) Glucose 84 (74-99) mg/dL Calcium 9.0 (8.5-10.1) mg/dL Total Bilirubin 0.7 (0.2-1.0) mg/dL AST 30 (15-37) U/L ALT 11 L (14-59) U/L Alkaline Phosphatase 85 (46-116) U/L Lactate Dehydrogenase 393 H (81-234) U/L Troponin I 0.115 H* (0.000-0.056) ng/mL C-Reactive Protein 8.7 H (0.0-0.9) mg/dL B-Natriuretic Peptide 2370 H (0-100) pg/ml Total Protein 7.9 (6.4-8.2) g/dL Albumin 3.1 L (3.4-5.0) g/dL Globulin 4.8 Albumin/Globulin Ratio 0.65 - Re-Assessments/Exams Free Text/Narrative Re-Assessment/Exam: 05/03/20 09:19 Patient case discussed with Dr. Thornton who agreed to accept the patient for admission. Patient does need to have dialysis. Patient will be discharged from [facility] ER, go upstairs to Dialysis, and then will be directly admitted to the medical floor. Departure - Departure Time of Disposition: 12:43 Disposition: Home, Self-Care 01 Condition: Fair Clinical Impression: COVID-19, Severe diarrhea, NSTEMI (non-ST elevated myocardial infarction) - Discharge Information *PRESCRIPTION DRUG MONITORING PROGRAM REVIEWED*: No *COPY OF PRESCRIPTION DRUG MONITORING REPORT IN PATIENT JAMESON: No Instructions: Diarrhea, Adult, [id number], COVID-19: How to Protect Yourself and Others - CDC, Prevent the Spread of COVID-19 if You Are Sick - CDC Forms: ED Department Discharge Additional Instructions: Go directly to dialysis When done done with dialysis go to the medical floor for direct admission Sepsis Event Note (ED) - Evaluation Sepsis Screening Result: No Definite Risk - My Orders Last 24 Hours: My Active Orders 05/02/20 10:33 Blood Culture x2 Reflex Set [OM.PC] Stat 05/02/20 10:57 CULTURE BLOOD [BC] Stat 05/02/20 11:01 Isolation [COMM] Stat 05/02/20 11:02 CULTURE BLOOD [BC] Stat - Assessment/Plan Last 24 Hours: My Active Orders 05/02/20 10:33 Blood Culture x2 Reflex Set [OM.PC] Stat 05/02/20 10:57 CULTURE BLOOD [BC] Stat 05/02/20 11:01 Isolation [COMM] Stat 05/02/20 11:02 CULTURE BLOOD [BC] Stat
== END 2020-05-02 12:43 | disposition home or self-care (01) ==
LOC: DL.ED 09:49
DX: U07.1 COVID-19 (principal); I21.4 Non-ST elevation (NSTEMI) myocardial infarction; I48.91 Unspecified atrial fibrillation; I25.10 Atherosclerotic heart disease of native coronary artery without angina pectoris; I11.0 Hypertensive heart disease with heart failure; I50.9 Heart failure, unspecified; J44.9 Chronic obstructive pulmonary disease, unspecified; E11.9 Type 2 diabetes mellitus without complications; Z88.5 Allergy status to narcotic agent; Z91.041 Radiographic dye allergy status; Z88.6 Allergy status to analgesic agent; Z79.899 Other long term (current) drug therapy
CPT/HCPCS: 36415; 71045; 80053; 82272; 83615; 83880; 84484; 85025; 85610; 86140; 87040; 93005; 99285; 99285-25

== ENCOUNTER 2020-05-02 16:00 | Observation (INO) | payer MEDICARE, MEDICAID ==
[2020-05-02] MEDS ORDERED: Loperamide 2 MG Cap PO PRN (18:17)
--- NOTE | 2020-05-02 19:10 | PCM.HP ---
H&P History of Present Illness - General Date of Service: 05/02/20 Source of Information: Patient - History of Present Illness Initial Comments - Free Text/Narative: has been having watery diarrhea for about 3 weeks. No associated abdominal pain. No blood in the stool. Last bowel movement this morning. she did not tolerate dialysis because of diarrhea she received no medication for this. No fever. No shortness of breath. No cough but she asked for cough medication from the clinic Buttock Pain Score (Numeric/FACES): 7 Back Pain Score (Numeric/FACES): 7 - Related Data Allergies/Adverse Reactions: Allergies Allergy/AdvReac Type Severity Reaction Status Date / Time codeine Allergy Severe Difficulty Verified 05/02/20 16:34 Breathing Iodinated Contrast Media Allergy Severe Difficulty Verified 05/02/20 16:34 Breathing acetaminophen [From Tylenol] Allergy Mild Other Verified 05/02/20 16:34 gabapentin Allergy Other Verified 05/02/20 16:34 ct dye Allergy Severe Renal Uncoded 05/02/20 16:34 Failure Home Medications: Home Meds Calcium Acetate [PhosLo] 667 mg PO TIDAC 09/03/14 [History] amLODIPine [Norvasc] 5 mg PO DAILY 01/29/16 [History] cloNIDine HCL [Clonidine HCl] 0.1 mg PO BID 10/03/19 [History] Bumetanide [Bumex] 2 mg PO BID 05/02/20 [History] Dicyclomine [Bentyl] 20 mg PO ASDIRECTED PRN 05/02/20 [History] Dorzolamide HCl 1 drp EYERT BID 05/02/20 [History] atorvaSTATin [Lipitor] 20 mg PO DAILY 05/02/20 [History] Past Medical History HEENT History: Reports: Impaired Vision Other HEENT History: legally blind Cardiovascular History: Reports: Afib, Angina, Arrhythmia, CAD, Cardiomyopathy, Heart Failure, Hypertension, Pacemaker Other Cardiovascular History: DEFIBRILLATOR Respiratory History: Reports: COPD Gastrointestinal History: Reports: Diverticulosis, Gastritis, GI Bleed, Other (See Below) Other Gastrointestinal History: Status post colonic villotubular adenoma Genitourinary History: Reports: Dialysis, Renal Disease Other Genitourinary History: Nephrotic syndrome 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 Pain in shoulder Neurological History: Reports: Headaches, Chronic Psychiatric History: Reports: Panic Attack Other Psychiatric History: Hx of panic attacks; has not has any for years Endocrine/Metabolic History: Reports: Diabetes, Type II, Hyperparathyroidism, Other (See Below) Other Endocrine/Metabolic History: Hyperkalemia, metabolic acidosis, hyperlipidemia Hematologic History: Reports: Anemia, Blood Transfusion(s), Iron Deficiency Immunologic History: Reports: Immunosuppression Oncologic (Cancer) History: Reports: None Dermatologic History: Reports: Other (See Below) Other Dermatologic History: MRSA - Infectious Disease History Infectious Disease History: Reports: C-Difficile, MRSA Other Infectious Disease History: MRSA noted in chart, patient denies having it - Past Surgical History Cardiovascular Surgical History: Reports: Other (See Below) Other Cardiovascular Surgeries/Procedures: Cardiac cath stent Respiratory Surgical History: Reports: None GI Surgical History: Reports: Cholecystectomy, Colonoscopy, EGD, Polypectomy Female Surgical History: Reports: Hysterectomy Endocrine Surgical History: Reports: None Musculoskeletal Surgical History: Reports: None Social & Family History - Family History Family Medical History: No Pertinent Family History Cardiac: Reports: [place], Other (See Below) Other Cardiac Family History: Father of [place]. Brother in 50s [place] Endocrine/Metabolic: Reports: Diabetes, type II Other Endocrine/Metabolic Family History: Mother has diabetes Oncologic: Reports: Colon Other Oncologic Family History: Mother had colon cancer - Caffeine Use Caffeine Use: Reports: Coffee Other Caffeine Use: 3 cups of coffee Caffeine Use Comment: 1 CUP OCCASSIONALLY OF COFFEE. 3 CUPS TEA - Living Situation & Occupation Living situation: Reports: , with Spouse, with Family Occupation: Disabled H&P Review of Systems - Review of Systems: Review Of Systems: See Below General: Reports: Malaise, Weakness. Denies: Fever, Chills Pulmonary: Reports: Shortness of Breath (chronic). Denies: Wheezing, Pleuritic Chest Pain Cardiovascular: Denies: Chest Pain, Edema Gastrointestinal: Reports: Diarrhea. Denies: Abdominal Pain, Distension Genitourinary: Denies: Dysuria Psychiatric: Denies: Confusion Exam - Exam Exam: See Below - Vital Signs Vital Signs: Last Vital Signs Temp 98.8 F 05/02/20 16:34 Pulse 69 05/02/20 16:34 Resp 18 05/02/20 16:34 BP 98/54 L 05/02/20 16:34 Pulse Ox 98 05/02/20 16:34 Weight: 140 lb - Exam General: Alert, Oriented Neck: Supple Lungs: Clear to Auscultation, Normal Respiratory Effort Cardiovascular: Regular Rate, Regular Rhythm GI/Abdominal Exam: Normal Bowel Sounds Extremities: No Pedal Edema - Patient Data Lab Results Last 24 hrs: Laboratory Results - last 24 hr 05/02/20 Range/Units 17:13 POC Glucose 102 (70-105) mg/dl - Problem List (1) Hypotension SNOMED Code(s): 89044508 ICD Code: I95.9 - HYPOTENSION, UNSPECIFIED Status: Acute Current Visit: Yes (2) Diarrhea SNOMED Code(s): 22915759 ICD Code: R19.7 - DIARRHEA, UNSPECIFIED Status: Acute Current Visit: Yes (3) COVID-19 SNOMED Code(s): 769597550 ICD Code: U07.1 - COVID-19 Status: Acute Current Visit: Yes (4) Elevated troponin SNOMED Code(s): 921655773, 140853985, 201032174 ICD Code: R79.89 - OTHER SPECIFIED ABNORMAL FINDINGS OF BLOOD CHEMISTRY Status: Acute Current Visit: No (5) End stage renal disease on dialysis SNOMED Code(s): 343157834 ICD Code: N18.6 - END STAGE RENAL DISEASE; Z99.2 - DEPENDENCE ON RENAL DIALYSIS Status: Acute Current Visit: No Problem List Initiated/Reviewed/Updated: Yes Orders Last 24hrs: Active Orders 24 hr Category Date Time Status BASIC METABOLIC PANEL,BMP [CHEM] AM Lab 05/03/20 05:15 Ordered CBC WITH AUTO DIFF [HEME] AM Lab 05/03/20 05:15 Ordered CLOSTRIDIUM DIFFICILE TOX RFLX [MREF] Routine Lab 05/02/20 17:44 Ordered D-DIMER QUANTITATIVE [COAG] Routine Lab 05/02/20 18:40 Received TROPONIN I [CHEM] AM Lab 05/03/20 05:11 Ordered TROPONIN I [CHEM] Routine Lab 05/02/20 18:40 Received Calcium Acetate [PhosLo] Med 05/03/20 06:00 Pending 667 mg PO TIDAC Dorzolamide [Trusopt 2% Ophth Soln] Med 05/02/20 21:00 Active 0 ml EYERT BID Loperamide [Imodium] Med 05/02/20 21:00 Active 2 mg PO BID Loperamide [Imodium] Med 05/02/20 18:17 Active 2 mg PO Q6H PRN atorvaSTATin [Lipitor] Med 05/03/20 09:00 Active 20 mg PO DAILY dexAMETHasone [Decadron] Med 05/02/20 18:30 Active 6 mg IVPUSH DAILY Isolation [COMM] Stat Oth 05/02/20 17:45 Active Medication Orders Atorvastatin Calcium (Lipitor) 20 mg PO DAILY LETY Dexamethasone (Decadron) 6 mg IVPUSH DAILY LETY Dorzolamide HCl (Trusopt 2% Ophth Soln) 0 ml EYERT BID LETY Loperamide HCl (Imodium) 2 mg PO Q6H PRN PRN Reason: Diarrhea Loperamide HCl (Imodium) 2 mg PO BID LETY Non-Formulary Medication (Calcium Acetate [Phoslo]) 667 mg PO TIDAC LETY Assessment/Plan Comment:: Covid 19 infection Tested positive on 25 April, symptoms started on 21 April The patient has been isolated, plan was to discontinue isolation on 03 May Diarrhea might relate to this The patient is not a candidate for them to severe due to renal failure We will use dexamethasone Symptoms started 11 days ago, unlikely that plasma will make a difference. For now hold. Check d-dimer for concern for hypercoagulable status Elevated troponin This is in the setting of the ESRD in hemodialysis patient Well repeat troponin Follow for symptoms Likely does not represent acute [place] Well give aspirin ESRdisease on hemodialysis Has been able to tolerate only limited dialysis in the past 10 days due to diarrhea Had dialysis on 02 May Next one is planned for 04 may We will try to improve and discharge by then or will need to be transferred for facilitated HD capability Currently such facilities are full Hypotension noted during/following dialysis Received IVF during HD Hold Norvasc, clonidine, for now hold Bumex, Well monitor Have to be careful with fluids given chest x-ray is showing mild chronic congestive changes. Of course this congestive changes might actually be Covid 19 pneumonia changes. dvt prophylaxis SQ heparin
[2020-05-02] MEDS: Dexamethasone 4 MG/ML SDV IVPUSH SCH (19:11)
[2020-05-02] MEDS ORDERED: oxyCODONE 5 MG Tab PO PRN (19:12)
[2020-05-02] MEDS ORDERED: Ondansetron 4 MG Tab.DIS PO PRN (19:12)
[2020-05-02] MEDS ORDERED: Acetaminophen 325 MG Tab PO PRN (19:12)
[2020-05-02] MEDS ORDERED: Ondansetron 4 MG/2 ML SDV IVPUSH PRN (19:12)
[2020-05-02] MEDS ORDERED: Sodium Chloride 0.9% 10 ML Syringe FLUSH PRN (19:12)
[2020-05-02] MEDS: Loperamide 2 MG Cap PO SCH (21:20)
[2020-05-02] MEDS: Dorzolamide 2% Ophth Soln 10 ML Bottle EYERT SCH (21:22)
[2020-05-02] MEDS: Aspirin 325 MG Tab PO SCH (21:32)
[2020-05-02] MEDS: Temazepam 15 MG Cap PO PRN (21:32)
[2020-05-03 07:07] LABS: ANION GAP 17.1 mEq/L (7-13)
[2020-05-03] MEDS ORDERED: Heparin Sodium 5,000 Units/ML Vial SUBCUT SCH (08:00)
[2020-05-03] MEDS: atorvaSTATin 20 MG Tab PO SCH (08:38)
[2020-05-03] MEDS: Loperamide 2 MG Cap PO SCH ×2 (08:38→21:44)
[2020-05-03] MEDS: Dexamethasone 4 MG/ML SDV IVPUSH SCH (08:39)
[2020-05-03] MEDS: Dorzolamide 2% Ophth Soln 10 ML Bottle EYERT SCH ×2 (08:40→21:46)
--- NOTE | 2020-05-03 11:42 | PCM.PN ---
- General Info Date of Service: 05/03/20 Admission Dx/Problem (Free Text): diarrhea Subjective Update: no further diarrhea. Complaining of pain in bilateral shoulders and the buttock. Worse with activity, Feeling weak. no associated chest pain. Functional Status: Reports: Tolerating Diet. Denies: Pain Controlled, Ambulating - Review of Systems General: Denies: Fever Pulmonary: Denies: Shortness of Breath Cardiovascular: Denies: Chest Pain, Edema Gastrointestinal: Denies: Abdominal Pain Neurological: Denies: Confusion - Patient Data Vitals - Most Recent: Last Vital Signs Temp 98.3 F 05/03/20 08:48 Pulse 62 05/03/20 08:48 Resp 18 05/03/20 08:48 BP 79/41 L 05/03/20 08:48 Pulse Ox 96 05/03/20 08:48 Weight - Most Recent: 140 lb I&O - Last 24 Hours: Intake & Output 05/02/20 05/03/20 05/03/20 22:59 06:59 14:59 Intake Total 100 200 Balance 100 200 Lab Results Last 24 Hours: Laboratory Results - last 24 hr 05/02/20 05/02/20 05/02/20 Range/Units 17:13 18:40 18:40 WBC (5.0-10.0) 10^3/uL RBC (4.2-5.4) 10^6/uL Hgb (12.0-16.0) g/dL Hct (37.0-47.0) % MCV (80-100) fL MCH (27.0-34.0) pg MCHC (33.0-35.0) g/dL Plt Count (150-450) 10^3/uL Neut % (Auto) (42.2-75.2) % Lymph % (Auto) (20.5-50.1) % Maries % (Auto) (2-8) % Eos % (Auto) (1.0-3.0) % Baso % (Auto) (0.0-1.0) % D-Dimer, Quantitative 2190 H (0-400) ng/mL Sodium (136-145) mmol/L Potassium (3.5-5.1) mmol/L Chloride (98-107) mmol/L Carbon Dioxide (21-32) mmol/L Anion Gap (7-13) mEq/L BUN (7-18) mg/dL Creatinine (0.55-1.02) mg/dL Est Cr Clr Drug Dosing mL/min Estimated GFR (MDRD) Glucose (74-99) mg/dL POC Glucose 102 (70-105) mg/dl Calcium (8.5-10.1) mg/dL Troponin I 0.119 H* (0.000-0.056) ng/mL 05/02/20 05/03/20 05/03/20 Range/Units 20:51 06:00 06:00 WBC 2.7 L (5.0-10.0) 10^3/uL RBC 3.69 L (4.2-5.4) 10^6/uL Hgb 11.6 L (12.0-16.0) g/dL Hct 35.2 L (37.0-47.0) % MCV 95.4 (80-100) fL MCH 31.4 (27.0-34.0) pg MCHC 33.0 (33.0-35.0) g/dL Plt Count 145 L (150-450) 10^3/uL Neut % (Auto) 80.1 H (42.2-75.2) % Lymph % (Auto) 12.9 L (20.5-50.1) % Maries % (Auto) 6.6 (2-8) % Eos % (Auto) 0.0 L (1.0-3.0) % Baso % (Auto) 0.4 (0.0-1.0) % D-Dimer, Quantitative (0-400) ng/mL Sodium 138 (136-145) mmol/L Potassium 4.1 (3.5-5.1) mmol/L Chloride 96 L (98-107) mmol/L Carbon Dioxide 29 (21-32) mmol/L Anion Gap 17.1 H (7-13) mEq/L BUN 22 H (7-18) mg/dL Creatinine 6.01 H* D (0.55-1.02) mg/dL Est Cr Clr Drug Dosing 8.50 mL/min Estimated GFR (MDRD) 7 Glucose 120 H (74-99) mg/dL POC Glucose 102 (70-105) mg/dl Calcium 8.7 (8.5-10.1) mg/dL Troponin I 0.096 H* (0.000-0.056) ng/mL Med Orders - Current: Current Medications Aspirin (Aspirin) 325 mg PO BEDTIME [facility] Last Admin: 05/02/20 21:32 Dose: 325 mg Documented by: Atorvastatin Calcium (Lipitor) 20 mg PO DAILY [facility] Last Admin: 05/03/20 08:38 Dose: 20 mg Documented by: Dexamethasone (Decadron) 6 mg IVPUSH DAILY [facility] Last Admin: 05/03/20 08:39 Dose: 6 mg Documented by: Dorzolamide HCl (Trusopt 2% Ophth Soln) 0 ml EYERT BID [facility] Last Admin: 05/03/20 08:40 Dose: 1 dose Documented by: Heparin Sodium (Porcine) (Heparin Sodium) 5,000 units SUBCUT Q8HR [facility] Last Admin: 05/03/20 08:38 Dose: 5,000 units Documented by: Loperamide HCl (Imodium) 2 mg PO Q6H PRN PRN Reason: Diarrhea Last Admin: 05/02/20 19:12 Dose: 2 mg Documented by: Loperamide HCl (Imodium) 2 mg PO BID [facility] Last Admin: 05/03/20 08:38 Dose: 2 mg Documented by: Methyl Salicylate (Icy Hot Cream) 0 gm TOP BID PRN PRN Reason: Pain (Mild 1-3), muscle pain Midodrine (Midodrine) 5 mg PO TIDAC [facility] Non-Formulary Medication (Calcium Acetate [Phoslo]) 667 mg PO TIDAC [facility] Ondansetron HCl (Zofran Odt) 4 mg PO Q6H PRN PRN Reason: nausea, able to take PO Ondansetron HCl (Zofran) 4 mg IVPUSH Q6H PRN PRN Reason: Nausea/Vomiting Sodium Chloride (Saline Flush) 10 ml FLUSH ASDIRECTED PRN PRN Reason: Keep Vein Open Temazepam (Restoril) 15 mg PO BEDTIME PRN PRN Reason: Sleep Last Admin: 05/02/20 21:32 Dose: 15 mg Documented by: Discontinued Medications Acetaminophen (Tylenol) 650 mg PO Q4H PRN PRN Reason: Pain (Mild 1-3)/fever Oxycodone HCl (Oxycodone) 5 mg PO Q4H PRN PRN Reason: Pain (moderate 4-6) - Exam General: Alert, Oriented Neck: Supple Cardiovascular: Regular Rate, Regular Rhythm GI/Abdominal Exam: Normal Bowel Sounds, Soft, Non-Tender Extremities: No Pedal Edema Psy/Mental Status: Alert, Normal Affect, Normal Mood Sepsis Event Note - Evaluation Sepsis Screening Result: No Definite Risk - Focused Exam Vital Signs: Vital Signs Temp Pulse Resp BP Pulse Ox 05/03/20 08:48 98.3 F 62 18 79/41 L 96 05/03/20 05:44 98.6 F 63 16 101/59 L 97 - Problem List & Annotations (1) Hypotension SNOMED Code(s): 56151747 Code(s): I95.9 - HYPOTENSION, UNSPECIFIED Status: Acute Current Visit: Y es (2) Diarrhea SNOMED Code(s): 35268083 Code(s): R19.7 - DIARRHEA, UNSPECIFIED Status: Acute Current Visit: Yes (3) COVID-19 SNOMED Code(s): 713187621 Code(s): U07.1 - COVID-19 Status: Acute Current Visit: No (4) Elevated troponin SNOMED Code(s): 390218303, 251356476, 128355705 Code(s): R79.89 - OTHER SPECIFIED ABNORMAL FINDINGS OF BLOOD CHEMISTRY Status: Acute Current Visit: No (5) End stage renal disease on dialysis SNOMED Code(s): 026758598 Code(s): N18.6 - END STAGE RENAL DISEASE; Z99.2 - DEPENDENCE ON RENAL DIALYSIS Status: Acute Current Visit: No - Problem List Review Problem List Initiated/Reviewed/Updated: Yes - My Orders Last 24 Hours: My Active Orders 05/02/20 17:44 CLOSTRIDIUM DIFFICILE TOX RFLX [MREF] Routine 05/02/20 17:45 Isolation [COMM] Stat 05/02/20 18:17 Loperamide [Imodium] 2 mg PO Q6H PRN 05/02/20 18:30 dexAMETHasone [Decadron] 6 mg IVPUSH DAILY 05/02/20 19:12 Patient Status [ADT] Routine Oxygen Therapy [RC] PRN Up With Assistance [RC] ASDIRECTED VTE/DVT Education [RC] PER UNIT ROUTINE Vital Signs [RC] Q4H Ondansetron [Zofran ODT] 4 mg PO Q6H PRN Ondansetron [Zofran] 4 mg IVPUSH Q6H PRN Sodium Chloride 0.9% [Saline Flush] 10 ml FLUSH ASDIRECTED PRN Temazepam [Restoril] 15 mg PO BEDTIME PRN Peripheral IV Insertion Adult [OM.PC] Routine Saline Lock Insert [OM.PC] Routine Resuscitation Status Routine 05/02/20 19:13 Antiembolic Devices [RC] PER UNIT ROUTINE Peripheral IV Care [RC] . DIRECTED Antiembolic Hose [OM.PC] Per Unit Routine 05/02/20 21:00 Aspirin 325 mg PO BEDTIME Dorzolamide [Trusopt 2% Ophth Soln] 0 ml EYERT BID Loperamide [Imodium] 2 mg PO BID 05/03/20 06:00 Calcium Acetate [PhosLo] 667 mg PO TIDAC 05/03/20 08:00 Heparin Sodium 5,000 units SUBCUT Q8HR 05/03/20 09:00 atorvaSTATin [Lipitor] 20 mg PO DAILY 05/03/20 11:18 Dietary Supplements [RC] TIDMEALS 05/03/20 11:22 Menthol/Methyl Salicylate [Icy Hot Cream] 0 gm TOP BID PRN 05/03/20 11:45 Midodrine 5 mg PO TIDAC 05/04/20 05:11 DD [D-DIMER QUANTITATIVE] [COAG] AM 05/04/20 05:15 BASIC METABOLIC PANEL,BMP [CHEM] AM CBC WITH AUTO DIFF [HEME] AM 05/05/20 05:11 DD [D-DIMER QUANTITATIVE] [COAG] AM 05/06/20 05:11 DD [D-DIMER QUANTITATIVE] [COAG] AM 05/07/20 05:11 DD [D-DIMER QUANTITATIVE] [COAG] AM - Plan Plan:: Covid 19 infection Tested positive on 25 April, symptoms started on 21 April The patient has been isolated, plan was to discontinue isolation on 03 May Diarrhea might relate to this The patient is not a candidate for Remdesivir due to renal failure We will use dexamethasone Symptoms started 11 days ago, unlikely that plasma will make a difference. For now hold. high d-dimer: will use higher SQ heparin prophylaxis 10,000 u tid Elevated troponin This is in the setting of the ESRD in hemodialysis patient stable Follow for symptoms Likely does not represent acute [place] Well continue aspirin ESRdisease on hemodialysis Has been able to tolerate only limited dialysis in the past 10 days due to diarrhea Had dialysis on 02 May Next one is planned for 04 may We will try to improve and discharge by then or will need to be transferred for facilitated HD capability Hypotension noted during/following dialysis Received IVF during HD Hold Norvasc, clonidine, for now hold Bumex, add midodrine Well monitor Have to be careful with fluids given chest x-ray is showing mild chronic congestive changes. Of course this congestive changes might actually be Covid 19 pneumonia changes. dvt prophylaxis SQ heparin high dose
[2020-05-03] MEDS: Midodrine 2.5 MG Tab PO SCH ×2 (12:54→16:40)
[2020-05-03] MEDS: Menthol/Methyl Salicylate 85 GM Tube TOP PRN ×2 (12:56→21:46)
[2020-05-03] MEDS: Heparin Sodium 5,000 Units/ML Vial SUBCUT SCH ×2 (14:14→21:45)
[2020-05-03] MEDS: [UNRECOGNIZED DRUG - REMARK] PO SCH (17:15)
[2020-05-03] MEDS: Aspirin 325 MG Tab PO SCH (21:44)
[2020-05-03] MEDS: Temazepam 15 MG Cap PO PRN (22:01)
[2020-05-04] MEDS: Midodrine 2.5 MG Tab PO SCH (06:01)
[2020-05-04] MEDS: [UNRECOGNIZED DRUG - REMARK] PO SCH (06:12)
[2020-05-04] MEDS: Heparin Sodium 5,000 Units/ML Vial SUBCUT SCH (06:15)
[2020-05-04 07:24] LABS: ANION GAP 17.3 mEq/L (7-13)
[2020-05-04] MEDS ORDERED: Acetaminophen 325 MG Tab PO ONE (08:41)
--- NOTE | 2020-05-04 08:56 | PCM.DCSUM1 ---
Discharge Summary - Hospital Course Free Text/Narrative:: This is s 69 year old female , with History of ESRD on Dialysis TTS, gets HD at [facility] , Hypotension on Midodrine , pt had Covid 19 infection Tested positive on 25 April 2010 , symptoms started on April, The patient has been isolated, plan was to discontinue isolation on April,, admitted with uncontrollable Diarrhea , which is most likely related to COVID- 19 . she was treated with Lomotil and now the diarrhea is almost gone. S he was treated with Dexamethasone and high dose of Heparin because of concern for hypercoagulable status. she will be transferred today to [facility] because she can not be taken off supplemental oxygen and also Hypotensive, con not discharge home and have dialysis at out patient dialysis unit. Diagnosis: Stroke: No - Discharge Data Discharge Date: 05/04/20 Discharge Disposition: DC/Tfer to Acute Hospital 02 Condition: Stable - Referral to Home Health Primary Care Physician: Trina Linton MD - Patient Instructions Diet: Regular Diet as Tolerated Activity: As Tolerated Showering/Bathing: May Shower Notify Provider of: Fever Other/Special Instructions: Pt will be discharge today to [facility] to continue dialysis and continued Hypoxia - Discharge Plan Home Medications: Home Meds Calcium Acetate [PhosLo] 1,334 mg PO TIDAC 09/03/14 [History] amLODIPine [Norvasc] 5 mg PO DAILY 01/29/16 [History] cloNIDine HCL [Clonidine HCl] 0.1 mg PO BID 10/03/19 [History] Bumetanide [Bumex] 2 mg PO BID 05/02/20 [History] Dicyclomine [Bentyl] 20 mg PO Q6H PRN 05/02/20 [History] Dorzolamide HCl 1 drp EYERT BID 05/02/20 [History] atorvaSTATin [Lipitor] 20 mg PO DAILY 05/02/20 [History] B Complex W-C No.20/Folic Acid [Worth Caps Softgel] 1 mg PO DAILY 05/03/20 [History] Betamethasone Valerate [Valisone 0.1% Lotion] 1 applic TOP BID PRN 05/03/20 [History] Loperamide [Imodium] 2 mg PO TID 05/03/20 [History] Omeprazole 20 mg PO DAILY 05/03/20 [History] calcium polycarbophiL [Fibercon] 625 mg PO BID 05/03/20 [History] Oxygen Therapy Mode: Room Air Referrals: [facility] [Ordering Only Provider] - - Discharge Summary/Plan Comment DC Time >30 min.: Yes Discharge Summary/Plan Comment: This is s 69 year old female , with History of ESRD on Dialysis TTS, gets HD at [facility] , Hypotension on Midodrine , pt had Covid 19 infection Tested positive on 25 April 2020 , symptoms started on April, The patient has been isolated, plan was to discontinue isolation on April,, admitted with uncontrollable Diarrhea , which is most likely related to COVID- 19 . she was tredted with Lomotil and now the diarrhea is almost gone. She was treated with Dexamethasone and high dose of Heparin because of concern for hypercoagulable status. she will be discharge today and will have Dialysis after the discharge 1. COVID 19 Infection: - pt had Covid 19 infection Tested positive on 25 April 2020 , symptoms started on April, The patient has been isolated, plan was to discontinue isolation on April, The patient is not a candidate for Remdesivir due to renal failure on Dialysis - Has been receiving dexamethasone and will go home on dexamethasone for 7 more days course [ has received 3 dose in hospital) Symptoms started 11 days ago, and for that reason plasma was not given Check d-dimer for concern for hypercoagulable status Elevated troponin This is in the setting of the ESRD in hemodialysis patient -Continue aspirin ESRD on hemodialysis Has been able to tolerate only limited dialysis in the past 10 days due to diarrhea Had dialysis on April, -Her planned dialysis is today ( April) Discharge: Will go home today and have dialysis - General Info Date of Service: 05/04/20 Admission Dx/Problem (Free Text: Admitted for: Diarrhea Subjective Update: Her diarrhea is almost gone , Complaining of pain in bilateral shoulders and the buttock. Worse with activity,Feeling weak. no associated chest pain. Functional Status: Reports: Pain Controlled, Tolerating Diet, Ambulating - Review of Systems General: Reports: Weakness, Appetite (acceptable). Denies: Fever, Chills HEENT: Denies: Headaches, Sinus Congestion, Sore Throat, Visual Changes Pulmonary: Denies: Shortness of Breath, Cough, Sputum, Wheezing Cardiovascular: Denies: Chest Pain, Lightheadedness Gastrointestinal: Reports: Abdominal Pain. Denies: Diarrhea, Difficulty Swallowing, Nausea, Vomiting Genitourinary: Denies: Dysuria, Burning, Flank Pain Musculoskeletal: Denies: Neck Pain, Leg Pain, Joint Pain Skin: Denies: Cyanosis, Jaundice Neurological: Denies: Confusion, Numbness, Tremors Psychiatric: Denies: Confusion, Anxiety - Patient Data Vitals - Most Recent: Last Vital Signs Temp 36.6 C 05/04/20 04:00 Pulse 60 05/04/20 04:00 Resp 16 05/04/20 04:00 BP 81/35 L 05/04/20 04:00 Pulse Ox 92 L 05/04/20 04:00 Weight - Most Recent: 63.503 kg I&O - Last 24 hours: Intake & Output 05/03/20 05/04/20 05/04/20 22:59 06:59 14:59 Intake Total 200 Balance 200 Lab Results - Last 24 hrs: Laboratory Results - last 24 hr 05/04/20 05/04/20 05/04/20 Range/Units 06:20 06:20 06:20 WBC 4.5 L (5.0-10.0) 10^3/uL RBC 3.42 L (4.2-5.4) 10^6/uL Hgb 10.8 L (12.0-16.0) g/dL Hct 32.3 L (37.0-47.0) % MCV 94.4 (80-100) fL MCH 31.6 (27.0-34.0) pg MCHC 33.4 (33.0-35.0) g/dL Plt Count 205 (150-450) 10^3/uL Neut % (Auto) 76.9 H (42.2-75.2) % Lymph % (Auto) 13.0 L (20.5-50.1) % [place] % (Auto) 9.9 H (2-8) % Eos % (Auto) 0.0 L (1.0-3.0) % Baso % (Auto) 0.2 (0.0-1.0) % D-Dimer, Quantitative 1450 H (0-400) ng/mL Sodium 137 (136-145) mmol/L Potassium 4.3 (3.5-5.1) mmol/L Chloride 97 L (98-107) mmol/L Carbon Dioxide 27 (21-32) mmol/L Anion Gap 17.3 H (7-13) mEq/L BUN 42 H (7-18) mg/dL Creatinine 7.49 H* D (0.55-1.02) mg/dL Est Cr Clr Drug Dosing 6.82 mL/min Estimated GFR (MDRD) 5 Glucose 134 H (74-99) mg/dL Calcium 8.5 (8.5-10.1) mg/dL Med Orders - Current: Current Medications Aspirin (Aspirin) 325 mg PO BEDTIME [facility] Last Admin: 05/03/20 21:44 Dose: 325 mg Documented by: Atorvastatin Calcium (Lipitor) 20 mg PO DAILY [facility] Last Admin: 05/03/20 08:38 Dose: 20 mg Documented by: Dexamethasone (Decadron) 6 mg IVPUSH DAILY [facility] Last Admin: 05/03/20 08:39 Dose: 6 mg Documented by: Dorzolamide HCl (Trusopt 2% Ophth Soln) 0 ml EYERT BID [facility] Last Admin: 05/03/20 21:46 Dose: 1 drop Documented by: Heparin Sodium (Porcine) (Heparin Sodium) 10,000 units SUBCUT Q8HR [facility] Last Admin: 05/04/20 06:15 Dose: 10,000 units Documented by: Loperamide HCl (Imodium) 2 mg PO Q6H PRN PRN Reason: Diarrhea Last Admin: 05/02/20 19:12 Dose: 2 mg Documented by: Loperamide HCl (Imodium) 2 mg PO BID [facility] Last Admin: 05/03/20 21:44 Dose: 2 mg Documented by: Methyl Salicylate (Icy Hot Cream) 0 gm TOP BID PRN PRN Reason: Pain (Mild 1-3), muscle pain Last Admin: 05/03/20 21:46 Dose: 1 applic Documented by: Midodrine (Midodrine) 5 mg PO TIDAC [facility] Last Admin: 05/04/20 06:01 Dose: 5 mg Documented by: Calcium Acetate [ Phoslo] 667 Mg Non Form Med 667 mg PO TIDAC [facility] Last Admin: 05/04/20 06:12 Dose: 667 mg Documented by: Ondansetron HCl (Zofran Odt) 4 mg PO Q6H PRN PRN Reason: nausea, able to take PO Ondansetron HCl (Zofran) 4 mg IVPUSH Q6H PRN PRN Reason: Nausea/Vomiting Sodium Chloride (Saline Flush) 10 ml FLUSH ASDIRECTED PRN PRN Reason: Keep Vein Open Temazepam (Restoril) 15 mg PO BEDTIME PRN PRN Reason: Sleep Last Admin: 05/03/20 22:01 Dose: 15 mg Documented by: Discontinued Medications Acetaminophen (Tylenol) 650 mg PO Q4H PRN PRN Reason: Pain (Mild 1-3)/fever Acetaminophen (Tylenol) 650 mg PO NOW ONE Stop: 05/04/20 08:42 Heparin Sodium (Porcine) (Heparin Sodium) 5,000 units SUBCUT Q8HR [facility] Last Admin: 05/03/20 08:38 Dose: 5,000 units Documented by: Oxycodone HCl (Oxycodone) 5 mg PO Q4H PRN PRN Reason: Pain (moderate 4-6) - Exam Quality Assessment: Reports: DVT Prophylaxis. Denies: Supplemental Oxygen, Urine Catheter General: Reports: Alert, Oriented, Cooperative, No Acute Distress HEENT: Reports: Pupils Equal, Pupils Reactive, EOMI, Mucous Membr. Moist/[place]bert [place] Neck: Reports: Supple, No JVD, No Thyromegaly Lungs: Reports: Clear to Auscultation, Normal Respiratory Effort Cardiovascular: Reports: Regular Rate, Regular Rhythm, Murmurs GI/Abdominal Exam: Normal Bowel Sounds. No: Rigid, Rebound, Tender (Female) Exam: Deferred Rectal (Female) Exam: Deferred Back Exam: Reports: Normal Inspection Extremities: Normal Inspection, No Pedal Edema Skin: Reports: Warm, Dry, Intact Neurological: Reports: No New Focal Deficit Psy/Mental Status: Reports: Alert, Normal Affect, Normal Mood
[2020-05-04] MEDS: Dexamethasone 4 MG/ML SDV IVPUSH SCH (09:10)
[2020-05-04] MEDS: Loperamide 2 MG Cap PO SCH (09:10)
[2020-05-04] MEDS: atorvaSTATin 20 MG Tab PO SCH (09:10)
[2020-05-04 09:21] VITALS: BP 103/53; PULSE 57
== END 2020-05-04 10:40 ==
LOC: DL.MS 16:25
PROVIDERS: ADMIT Internal Medicine; ATTEND Internal Medicine
DX: R19.7 Diarrhea, unspecified (principal); U07.1 COVID-19; I48.91 Unspecified atrial fibrillation; I13.2 Hypertensive heart and chronic kidney disease with heart failure and with stage 5 chronic kidney disease, or end stage renal disease; I25.10 Atherosclerotic heart disease of native coronary artery without angina pectoris; E11.22 Type 2 diabetes mellitus with diabetic chronic kidney disease; N18.6 End stage renal disease; I42.9 Cardiomyopathy, unspecified; I50.9 Heart failure, unspecified; J44.9 Chronic obstructive pulmonary disease, unspecified; E78.5 Hyperlipidemia, unspecified; E21.3 Hyperparathyroidism, unspecified; R79.89 Other specified abnormal findings of blood chemistry; I95.9 Hypotension, unspecified; Z88.5 Allergy status to narcotic agent; Z88.8 Allergy status to other drugs, medicaments and biological substances; Z99.2 Dependence on renal dialysis; Z91.041 Radiographic dye allergy status; Z79.899 Other long term (current) drug therapy; Z95.0 Presence of cardiac pacemaker; Z98.890 Other specified postprocedural states
CPT/HCPCS: 36415; 80048; 82962; 84484; 85025; 85379; 96372; 96374; 96376; A9270-GY; G0378; J1100; J1644

== ENCOUNTER 2020-05-09 10:43 | Emergency (ER) | payer MEDICARE, MEDICAID ==
--- NOTE | 2020-05-09 11:50 | EDM.PDOC ---
ED HPI GENERAL MEDICAL PROBLEM - General Chief Complaint: General Stated Complaint: SENT FROM DIALYSIS Time Seen by Provider: 05/09/20 11:41 Source of Information: Reports: Patient History Limitations: Reports: No Limitations - History of Present Illness INITIAL COMMENTS - FREE TEXT/NARRATIVE: This 69 yo female patient reports to the ED from dialysis due to a low blood pressure and low blood sugar. The patient was recently discharged from [facility] (05/07/20) and seen in the ED (05/08/20). The patient reports she has not been feeling well for quite a while. The patient reports she has been having increased back pain for the past couple of weeks. The patient is a dialysis patient, but did not get dialysis today due to her low blood pressure. Review of the note from yesterday's ED visit and the discharge from [facility] demonstrated her current symptoms have been present for the past couple of days at least. The patient reports she was given her blood pressure medications this morning, but according to the records from [facility] the patient was not supposed to be receiving blood pressure medications as they were stopped during her hospitalization in [facility]. Onset: Unknown/Unsure Duration: Constant, Getting Worse Location: Reports: Generalized Quality: Reports: Other Severity: Moderate Improves with: Reports: None Worsens with: Reports: None Context: Reports: Other Associated Symptoms: Reports: Weakness, Other (dizziness) Back Pain Score (Numeric/FACES): 7 - Related Data Allergies Allergy/AdvReac Type Severity Reaction Status Date / Time codeine Allergy Severe Difficulty Verified 05/09/20 11:41 Breathing Iodinated Contrast Media Allergy Severe Difficulty Verified 05/09/20 11:41 Breathing acetaminophen [From Tylenol] Allergy Mild Other Verified 05/09/20 11:41 gabapentin Allergy Other Verified 05/09/20 11:41 ct dye Allergy Severe Renal Uncoded 05/09/20 11:41 Failure Home Meds: Home Meds Calcium Acetate [PhosLo] 1,334 mg PO TIDAC 09/03/14 [History] amLODIPine [Norvasc] 5 mg PO DAILY 01/29/16 [History] cloNIDine HCL [Clonidine HCl] 0.1 mg PO BID 10/03/19 [History] Bumetanide [Bumex] 2 mg PO BID 05/02/20 [History] Dicyclomine [Bentyl] 20 mg PO Q6H PRN 05/02/20 [History] Dorzolamide HCl 1 drp EYERT BID 05/02/20 [History] atorvaSTATin [Lipitor] 20 mg PO DAILY 05/02/20 [History] B Complex W-C No.20/Folic Acid [Reggie Caps Softgel] 1 mg PO DAILY 05/03/20 [History] Betamethasone Valerate [Valisone 0.1% Lotion] 1 applic TOP BID PRN 05/03/20 [History] Loperamide [Imodium] 2 mg PO TID 05/03/20 [History] Omeprazole 20 mg PO DAILY 05/03/20 [History] calcium polycarbophiL [Fibercon] 625 mg PO BID 05/03/20 [History] Past Medical History HEENT History: Reports: Impaired Vision Other HEENT History: legally blind Cardiovascular History: Reports: Afib, Angina, Arrhythmia, CAD, Cardiomyopathy, Heart Failure, Hypertension, Pacemaker Other Cardiovascular History: DEFIBRILLATOR Respiratory History: Reports: COPD Gastrointestinal History: Reports: Diverticulosis, Gastritis, GI Bleed, Other (See Below) Other Gastrointestinal History: Status post colonic villotubular adenoma Genitourinary History: Reports: Dialysis, Renal Disease Other Genitourinary History: Nephrotic syndrome 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 Pain in shoulder Neurological History: Reports: Headaches, Chronic Psychiatric History: Reports: Panic Attack Other Psychiatric History: Hx of panic attacks; has not has any for years Endocrine/Metabolic History: Reports: Diabetes, Type II, Hyperparathyroidism, Other (See Below) Other Endocrine/Metabolic History: Hyperkalemia, metabolic acidosis, hyperlipid emia Hematologic History: Reports: Anemia, Blood Transfusion(s), Iron Deficiency Immunologic History: Reports: Immunosuppression Oncologic (Cancer) History: Reports: None Dermatologic History: Reports: Other (See Below) Other Dermatologic History: MRSA - Infectious Disease History Infectious Disease History: Reports: C-Difficile, MRSA, Novel Coronavirus Other Infectious Disease History: MRSA noted in chart, patient denies having it - Past Surgical History Cardiovascular Surgical History: Reports: Other (See Below) Other Cardiovascular Surgeries/Procedures: Cardiac cath stent Respiratory Surgical History: Reports: None GI Surgical History: Reports: Cholecystectomy, Colonoscopy, EGD, Polypectomy Female Surgical History: Reports: Hysterectomy Endocrine Surgical History: Reports: None Musculoskeletal Surgical History: Reports: None Social & Family History - Family History Family Medical History: No Pertinent Family History Cardiac: Reports: VA, Other (See Below) Other Cardiac Family History: Father of VA. Brother in 50s VA Endocrine/Metabolic: Reports: Diabetes, type II Other Endocrine/Metabolic Family History: Mother has diabetes Oncologic: Reports: Colon Other Oncologic Family History: Mother had colon cancer - Caffeine Use Caffeine Use: Reports: None Other Caffeine Use: 3 cups of coffee Caffeine Use Comment: 1 CUP OCCASSIONALLY OF COFFEE. 3 CUPS TEA - Living Situation & Occupation Living situation: Reports: , with Spouse, with Family Occupation: Disabled ED ROS GENERAL - Review of Systems Review Of Systems: Comprehensive ROS is negative, except as noted in HPI. ED EXAM, GENERAL - Physical Exam Exam: See Below Exam Limited By: No Limitations General Appearance: Alert, WD/WN, Moderate Distress Eye Exam: Bilateral Eye: EOMI, Other (The patient is blind) Ear Exam: Bilateral Ear: Auricle Normal, Canal Normal, TM normal Nose: Normal Inspection, Normal Mucosa, No Blood Throat/Mouth: Normal Inspection, Normal Lips, Normal Teeth, Normal Gums, Normal Oropharynx, Normal Voice, No Airway Compromise Head: Atraumatic, Normocephalic Neck: Normal Inspection, Supple, Non-Tender, Full Range of Motion Respiratory/Chest: Decreased Breath Sounds (with minimal effort) Cardiovascular: Normal Peripheral Pulses, Regular Rate, Rhythm, No Edema, No Gallop, No JVD, No Murmur, No Rub GI/Abdominal: Normal Bowel Sounds, Soft, Non-Tender, No Organomegaly, No Distention, No Abnormal Bruit, No Mass (Female) Exam: Deferred Rectal (Female) Exam: Deferred Back Exam: Vertebral Tenderness (generalized back pain) Neurological: Alert, Oriented, CN II-XII Intact, Normal Cognition, Normal Gait, Normal Reflexes, No Motor/Sensory Deficits Psychiatric: Normal Affect, Normal Mood Skin Exam: Warm, Dry, Intact, Normal Color, No Rash Lymphatic: No Adenopathy Course - Vital Signs Last Recorded V/S: Last Vital Signs Temp 36.6 C 05/09/20 11:15 Pulse 65 05/09/20 12:32 Resp 16 05/09/20 12:32 BP 98/49 L 05/09/20 12:32 Pulse Ox 90 L 05/09/20 12:32 - Orders/Labs/Meds Orders: Active Orders 24 hr Category Date Time Status EKG Documentation Completion [RC] STAT Care 05/09/20 11:13 Active Glucose [Blood Glucose Check, Bedside] [RC] ONETIME Care 05/09/20 11:37 Active Labs: Laboratory Tests 05/09/20 05/09/20 05/09/20 Range/Units 11:34 12:06 12:06 WBC 11.2 H (5.0-10.0) 10^3/uL RBC 3.72 L (4.2-5.4) 10^6/uL Hgb 11.7 L (12.0-16.0) g/dL Hct 35.1 L (37.0-47.0) % MCV 94.4 (80-100) fL MCH 31.5 (27.0-34.0) pg MCHC 33.3 (33.0-35.0) g/dL Plt Count 224 (150-450) 10^3/uL Neut % (Auto) 91.4 H (42.2-75.2) % Lymph % (Auto) 2.9 L (20.5-50.1) % [place] % (Auto) 4.3 (2-8) % Eos % (Auto) 0.6 L (1.0-3.0) % Baso % (Auto) 0.8 (0.0-1.0) % Add Manual Diff Yes Neutrophils % (Manual) 89 H (42-75) % Lymphocytes % (Manual) 6 L (20-50) % Monocytes % (Manual) 5 (2-8) % Sodium 138 (136-145) mmol/L Potassium 4.1 (3.5-5.1) mmol/L Chloride 94 L (98-107) mmol/L Carbon Dioxide 25 (21-32) mmol/L Anion Gap 23.1 H (7-13) mEq/L BUN 56 H (7-18) mg/dL Creatinine 6.36 H* D (0.55-1.02) mg/dL Est Cr Clr Drug Dosing 8.04 mL/min Estimated GFR (MDRD) 7 BUN/Creatinine Ratio 8.8 (No establ ref range) Glucose 158 H (74-99) mg/dL Lactic Acid 4.0 H* (0.4-2.0) mmol/L Calcium 9.4 (8.5-10.1) mg/dL Total Bilirubin 0.8 (0.2-1.0) mg/dL AST 14 L (15-37) U/L ALT 14 (14-59) U/L Alkaline Phosphatase 78 (46-116) U/L Troponin I 0.041 (0.000-0.056) ng/mL B-Natriuretic Peptide 1020 H (0-100) pg/ml Total Protein 7.2 (6.4-8.2) g/dL Albumin 3.5 (3.4-5.0) g/dL Globulin 3.7 Albumin/Globulin Ratio 0.9 Departure - Departure Time of Disposition: 13:26 Disposition: DC/Tfer to [facility] 02 Condition: Poor Clinical Impression: CHF, Congestive heart failure, End stage renal disease on dialysis Hypotension Qualifiers: Hypotension type: unspecified hypotension type Qualified Code(s): I95.9 - Hypotension, unspecified - Discharge Information *PRESCRIPTION DRUG MONITORING PROGRAM REVIEWED*: Not Applicable *COPY OF PRESCRIPTION DRUG MONITORING REPORT IN PATIENT JAMESON: Not Applicable Forms: Interfacility Transfer EMTALA Care Plan Goals: Discussed the patient history, examination and lab results with Dr. Mills and Dr. Griffith. Dr. Mills accepted the patient for continued evaluation and management. The patient will be transported by [facility]. Sepsis Event Note (ED) - Evaluation Sepsis Screening Result: No Definite Risk - Focused Exam Vital Signs: Vital Signs Temp Pulse Resp BP Pulse Ox 05/09/20 12:32 65 16 98/49 L 90 L 05/09/20 11:15 36.6 C 73 16 77/39 L 96 - My Orders Last 24 Hours: My Active Orders 05/09/20 11:13 EKG Documentation Completion [RC] STAT 05/09/20 11:37 Glucose [Blood Glucose Check, Bedside] [RC] ONETIME - Assessment/Plan Last 24 Hours: My Active Orders 05/09/20 11:13 EKG Documentation Completion [RC] STAT 05/09/20 11:37 Glucose [Blood Glucose Check, Bedside] [RC] ONETIME
[2020-05-09 12:33] VITALS: BP 98/49; PULSE 65
[2020-05-09 12:52] LABS: ANION GAP 23.1 mEq/L (7-13)
== END 2020-05-09 14:00 ==
LOC: DL.ED 14:00
DX: I95.9 Hypotension, unspecified (principal); I13.2 Hypertensive heart and chronic kidney disease with heart failure and with stage 5 chronic kidney disease, or end stage renal disease; I50.9 Heart failure, unspecified; N18.6 End stage renal disease; I48.91 Unspecified atrial fibrillation; I25.10 Atherosclerotic heart disease of native coronary artery without angina pectoris; J44.9 Chronic obstructive pulmonary disease, unspecified; E11.9 Type 2 diabetes mellitus without complications; E78.5 Hyperlipidemia, unspecified; Z79.899 Other long term (current) drug therapy; Z88.5 Allergy status to narcotic agent; Z91.041 Radiographic dye allergy status; Z88.6 Allergy status to analgesic agent; Z88.8 Allergy status to other drugs, medicaments and biological substances; Z99.2 Dependence on renal dialysis
CPT/HCPCS: 36415; 80053; 82962; 83605; 83880; 84484; 85025; 93005; 99285-25

== ENCOUNTER 2020-05-21 13:15 | Emergency (ER) | payer MEDICAID, MEDICARE ==
[2020-05-21 13:31] VITALS: BP 152/68; PULSE 66
--- NOTE | 2020-05-21 14:12 | EDM.PDOC ---
ED HPI GENERAL MEDICAL PROBLEM - General Chief Complaint: Upper Extremity Injury/Pain Stated Complaint: SENT FROM DIALYSIS Time Seen by Provider: 05/21/20 14:00 Source of Information: Reports: Patient, RN, RN Notes Reviewed History Limitations: Reports: No Limitations - History of Present Illness INITIAL COMMENTS - FREE TEXT/NARRATIVE: Patient presents to the ED from dialysis with complaints of pain to fistula. Patient did not receive her treatment today as she felt her pain was too great. She reports a history of recent hospitalization with frequent dialysis treatments and has subsequently become significantly bruised to her fistula. She denies fever, shaking chills, or new onset swelling to the left arm. She has not taken any medications for this pain. Left Arm Pain Score (Numeric/FACES): 2 - Related Data Allergies Allergy/AdvReac Type Severity Reaction Status Date / Time codeine Allergy Severe Difficulty Verified 05/21/20 13:28 Breathing Iodinated Contrast Media Allergy Severe Difficulty Verified 05/21/20 13:28 Breathing acetaminophen [From Tylenol] Allergy Mild Other Verified 05/21/20 13:28 gabapentin Allergy Other Verified 05/21/20 13:28 ct dye Allergy Severe Renal Uncoded 05/21/20 13:28 Failure Home Meds: Home Meds Calcium Acetate [PhosLo] 1,334 mg PO TIDAC 09/03/14 [History] amLODIPine [Norvasc] 5 mg PO DAILY 01/29/16 [History] cloNIDine HCL [Clonidine HCl] 0.1 mg PO BID 10/03/19 [History] Bumetanide [Bumex] 2 mg PO BID 05/02/20 [History] Dicyclomine [Bentyl] 20 mg PO Q6H PRN 05/02/20 [History] Dorzolamide HCl 1 drp EYERT BID 05/02/20 [History] atorvaSTATin [Lipitor] 20 mg PO DAILY 05/02/20 [History] B Complex W-C No.20/Folic Acid [[place] Caps Softgel] 1 mg PO DAILY 05/03/20 [History] Betamethasone Valerate [Valisone 0.1% Lotion] 1 applic TOP BID PRN 05/03/20 [History] Loperamide [Imodium] 2 mg PO TID 05/03/20 [History] Omeprazole 20 mg PO DAILY 05/03/20 [History] calcium polycarbophiL [Fibercon] 625 mg PO BID 05/03/20 [History] Past Medical History HEENT History: Reports: Impaired Vision Other HEENT History: legally blind Cardiovascular History: Reports: Afib, Angina, Arrhythmia, CAD, Cardiomyopathy, Heart Failure, Hypertension, Pacemaker Other Cardiovascular History: DEFIBRILLATOR Respiratory History: Reports: COPD Gastrointestinal History: Reports: Diverticulosis, Gastritis, GI Bleed, Other (See Below) Other Gastrointestinal History: Status post colonic villotubular adenoma Genitourinary History: Reports: Dialysis, Renal Disease Other Genitourinary History: Nephrotic syndrome 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 Pain in shoulder Neurological History: Reports: Headaches, Chronic Psychiatric History: Reports: Panic Attack Other Psychiatric History: Hx of panic attacks; has not has any for years Endocrine/Metabolic History: Reports: Diabetes, Type II, Hyperparathyroidism, Other (See Below) Other Endocrine/Metabolic History: Hyperkalemia, metabolic acidosis, hyperlipidemia Hematologic History: Reports: Anemia, Blood Transfusion(s), Iron Deficiency Immunologic History: Reports: Immunosuppression Oncologic (Cancer) History: Reports: None Dermatologic History: Reports: Other (See Below) Other Dermatologic History: MRSA - Infectious Disease History Infectious Disease History: Reports: C-Difficile, MRSA, Novel Coronavirus Other Infectious Disease History: MRSA noted in chart, patient denies having it - Past Surgical History Cardiovascular Surgical History: Reports: Other (See Below) Other Cardiovascular Surgeries/Procedures: Cardiac cath stent Respiratory Surgical History: Reports: None GI Surgical History: Reports: Cholecystectomy, Colonoscopy, EGD, Polypectomy Female Surgical History: Reports: Hysterectomy Endocrine Surgical History: Reports: None Musculoskeletal Surgical History: Reports: None Social & Family History - Family History Family Medical History: No Pertinent Family History Cardiac: Reports: [place], Other (See Below) Other Cardiac Family History: Father of [place]. Brother in 50s [place] Endocrine/Metabolic: Reports: Diabetes, type II Other Endocrine/Metabolic Family History: Mother has diabetes Oncologic: Reports: Colon Other Oncologic Family History: Mother had colon cancer - Tobacco Use Tobacco Use Status *Q: Never Tobacco User Second Hand Smoke Exposure: No - Caffeine Use Caffeine Use: Reports: Coffee Other Caffeine Use: 3 cups of coffee Caffeine Use Comment: 1 CUP OCCASSIONALLY OF COFFEE. 3 CUPS TEA - Recreational Drug Use Recreational Drug Use: No - Living Situation & Occupation Living situation: Reports: , with Spouse, with Family Occupation: Disabled Review of Systems - Review of Systems Review Of Systems: Comprehensive ROS is negative, except as noted in HPI. ED EXAM, GENERAL - Physical Exam Exam: See Below Exam Limited By: No Limitations General Appearance: Alert, WD/WN, No Apparent Distress Head: Atraumatic, Normocephalic Neck: Normal Inspection, Supple, Non-Tender, Full Range of Motion Respiratory/Chest: Chest Non-Tender, Decreased Breath Sounds, Crackles (To bilateral lower lobes) Course - Vital Signs Last Recorded V/S: Last Vital Signs Temp 97.1 F 05/21/20 13:28 Pulse 66 05/21/20 13:28 Resp 16 05/21/20 13:28 BP 152/68 H 05/21/20 13:28 Pulse Ox 100 05/21/20 13:28 - Orders/Labs/Meds Orders: Active Orders 24 hr Category Date Time Status Venous Doppler Upr Ext Lt [US] Urgent Exams 05/21/20 16:04 Ordered Labs: Laboratory Tests 05/21/20 05/21/20 05/21/20 Range/Units 14:16 14:16 14:16 WBC 7.0 (5.0-10.0) 10^3/uL RBC 3.34 L (4.2-5.4) 10^6/uL Hgb 10.5 L (12.0-16.0) g/dL Hct 32.3 L (37.0-47.0) % MCV 96.7 (80-100) fL MCH 31.4 (27.0-34.0) pg MCHC 32.5 L (33.0-35.0) g/dL Plt Count 152 (150-450) 10^3/uL Neut % (Auto) 69.6 (42.2-75.2) % Lymph % (Auto) 14.4 L (20.5-50.1) % [place] % (Auto) 9.5 H (2-8) % Eos % (Auto) 4.7 H (1.0-3.0) % Baso % (Auto) 1.8 H (0.0-1.0) % PT 10.5 (9.0-12.0) SEC INR 1.1 (0.9-1.2) APTT 23.7 (22.0-34.0) SEC D-Dimer, Quantitative 2930 H (0-400) ng/mL Sodium 135 L (136-145) mmol/L Potassium 4.7 (3.5-5.1) mmol/L Chloride 96 L (98-107) mmol/L Carbon Dioxide 27 (21-32) mmol/L Anion Gap 16.7 H (7-13) mEq/L BUN 73 H (7-18) mg/dL Creatinine 10.73 H* D (0.55-1.02) mg/dL Est Cr Clr Drug Dosing 4.76 mL/min Estimated GFR (MDRD) 4 BUN/Creatinine Ratio 6.8 (No establ ref range) Glucose 102 H (74-99) mg/dL Calcium 8.6 (8.5-10.1) mg/dL Total Bilirubin 0.6 (0.2-1.0) mg/dL AST 13 L (15-37) U/L ALT 10 L (14-59) U/L Alkaline Phosphatase 115 (46-116) U/L Troponin I 0.040 (0.000-0.056) ng/mL B-Natriuretic Peptide 2790 H (0-100) pg/ml Total Protein 6.8 (6.4-8.2) g/dL Albumin 2.9 L (3.4-5.0) g/dL Globulin 3.9 Albumin/Globulin Ratio 0.74 - Re-Assessments/Exams Free Text/Narrative Re-Assessment/Exam: 05/21/20 Patient resting comfortably in bed. D-dimer elevated 2930 (recent COVID infection in March 2020). Venous Doppler to fistula revealed clotting, venous and arterial flow still present. Discussed case with Dr. Herman in [place] and dialysis nurses in [place] regarding scheduling. Plan patient to receive dialysis tomorrow at 1430 and follow up for a fistulagram outpatient. Patient verbalized understanding and agreement with the plan of care. Departure - Departure Time of Disposition: 17:10 Disposition: Home, Self-Care 01 Condition: Good Clinical Impression: Chronic kidney disease on chronic dialysis, Pain from arteriovenous fistula, Thrombus, Elevated d-dimer, Elevated brain natriuretic peptide (BNP) level, Elevated serum creatinine - Discharge Information *PRESCRIPTION DRUG MONITORING PROGRAM REVIEWED*: Not Applicable *COPY OF PRESCRIPTION DRUG MONITORING REPORT IN PATIENT JAMESON: Not Applicable Forms: ED Department Discharge Additional Instructions: Keep your dialysis appointment tomorrow at 2:30pm. Discuss need for fistulogram with dialysis nurses tomorrow at your treatment - they will be able to start to appointment process with you. Sepsis Event Note (ED) - Evaluation Sepsis Screening Result: No Definite Risk - Focused Exam Vital Signs: Vital Signs Temp Pulse Resp BP Pulse Ox 05/21/20 13:28 97.1 F 66 16 152/68 H 100 - My Orders Last 24 Hours: My Active Orders 05/21/20 16:04 Venous Doppler Upr Ext Lt [US] Urgent - Assessment/Plan Last 24 Hours: My Active Orders 05/21/20 16:04 Venous Doppler Upr Ext Lt [US] Urgent
[2020-05-21 14:48] LABS: PTT,PARTIAL THROMBOPLSTIN TIME 23.7 SEC (22.0-34.0)
[2020-05-21 14:52] LABS: ANION GAP 16.7 mEq/L (7-13)
--- NOTE | 2020-05-21 17:28 | US ---
PROCEDURE INFORMATION: Exam: US Duplex Left Upper Extremity Veins, Limited Exam date and time: 05/21/2020 4:42 PM Age: 69 years old Clinical indication: Pain; Arm, upper and arm, lower; Left; Prior surgery; Surgery date: 6+ months; Surgery type: Dialysis graft placed; Additional info: Pain/heat surrounding fistula; Elevated d-dimer TECHNIQUE: Imaging protocol: Real-time Duplex ultrasound of the Left Upper Extremity with 2-D duarte scale, color Doppler flow and spectral waveform analysis with image documentation. Limited exam focused on the left upper extremity veins. COMPARISON: No relevant prior studies available. FINDINGS: Targeted ultrasound of the patient's dialysis graft left upper extremity. Multifocal areas of hyperechoic clot seen within the graft most pronounced along the proximal and mid aspect of the dialysis graft. Nonocclusive as some color blood flow is identified within the graft. IMPRESSION: Multifocal clot/thrombus within the dialysis graft as above. Nonocclusive as there is some color flow identified throughout the graft.
== END 2020-05-21 17:13 | disposition home or self-care (01) ==
LOC: DL.ED 13:15
DX: T82.848A Pain due to vascular prosthetic devices, implants and grafts, initial encounter (principal); I13.2 Hypertensive heart and chronic kidney disease with heart failure and with stage 5 chronic kidney disease, or end stage renal disease; E11.22 Type 2 diabetes mellitus with diabetic chronic kidney disease; N18.6 End stage renal disease; I50.9 Heart failure, unspecified; D63.1 Anemia in chronic kidney disease; R79.1 Abnormal coagulation profile; R74.8 Abnormal levels of other serum enzymes; I82.602 Acute embolism and thrombosis of unspecified veins of left upper extremity; I48.91 Unspecified atrial fibrillation; I25.10 Atherosclerotic heart disease of native coronary artery without angina pectoris; J44.9 Chronic obstructive pulmonary disease, unspecified; Z99.2 Dependence on renal dialysis; Z86.19 Personal history of other infectious and parasitic diseases; Z95.0 Presence of cardiac pacemaker; Z79.899 Other long term (current) drug therapy; Z88.5 Allergy status to narcotic agent; Z91.041 Radiographic dye allergy status; Z88.6 Allergy status to analgesic agent; Z88.8 Allergy status to other drugs, medicaments and biological substances
CPT/HCPCS: 36415; 80053; 83880; 84484; 85025; 85379; 85610; 85730; 93971; 99284-25

== ENCOUNTER 2020-08-08 17:33 | Emergency (ER) | payer MEDICARE, MEDICAID ==
[2020-08-08 18:23] VITALS: BP 160/66; PULSE 66
--- NOTE | 2020-08-08 18:26 | EDM.PDOC ---
ED HPI GENERAL MEDICAL PROBLEM - General Chief Complaint: Chest Pain Stated Complaint: CHEST IS HURTING Time Seen by Provider: 08/08/20 18:21 Source of Information: Reports: Patient, RN History Limitations: Reports: No Limitations - History of Present Illness INITIAL COMMENTS - FREE TEXT/NARRATIVE: ED with c/o lateral left chest pain,, mid pack pain since COVID in April Not new. Labs for clinic appointment drawn prior to dialysis this am. States only 1/2 dialysis run as had to get to clinic appointment. Clinic provider called her at home and told her she needed to come to ED as BNP critical. Family reports general weakness since COVID, no new change, requires assistance with ADL's and assistance in and out of bed. Greatest pain with position changes. No swelling today. No fever cough, nausea or vomiting. Chest Pain Score (Numeric/FACES): 4 - Related Data Allergies Allergy/AdvReac Type Severity Reaction Status Date / Time codeine Allergy Severe Difficulty Verified 05/21/20 13:28 Breathing Iodinated Contrast Media Allergy Severe Difficulty Verified 05/21/20 13:28 Breathing acetaminophen [From Tylenol] Allergy Mild Other Verified 05/21/20 13:28 gabapentin Allergy Other Verified 05/21/20 13:28 ct dye Allergy Severe Renal Uncoded 05/21/20 13:28 Failure Home Meds: Home Meds Calcium Acetate [PhosLo] 1,334 mg PO TIDAC 09/03/14 [History] amLODIPine [Norvasc] 5 mg PO DAILY 01/29/16 [History] cloNIDine HCL [Clonidine HCl] 0.1 mg PO BID 10/03/19 [History] Bumetanide [Bumex] 2 mg PO BID 05/02/20 [History] Dicyclomine [Bentyl] 20 mg PO Q6H PRN 05/02/20 [History] Dorzolamide HCl 1 drp EYERT BID 05/02/20 [History] atorvaSTATin [Lipitor] 20 mg PO DAILY 05/02/20 [History] B Complex W-C No.20/Folic Acid [[place] Caps Softgel] 1 mg PO DAILY 05/03/20 [History] Betamethasone Valerate [Valisone 0.1% Lotion] 1 applic TOP BID PRN 05/03/20 [History] Loperamide [Imodium] 2 mg PO TID 05/03/20 [History] Omeprazole 20 mg PO DAILY 05/03/20 [History] calcium polycarbophiL [Fibercon] 625 mg PO BID 05/03/20 [History] Past Medical History HEENT History: Reports: Impaired Vision Other HEENT History: legally blind Cardiovascular History: Reports: Afib, Angina, Arrhythmia, CAD, Cardiomyopathy, Heart Failure, Hypertension, Pacemaker Other Cardiovascular History: DEFIBRILLATOR Respiratory History: Reports: COPD Gastrointestinal History: Reports: Diverticulosis, Gastritis, GI Bleed, Other (See Below) Other Gastrointestinal History: Status post colonic villotubular adenoma Genitourinary History: Reports: Dialysis, Renal Disease Other Genitourinary History: Nephrotic syndrome 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 Pain in shoulder Neurological History: Reports: Headaches, Chronic Psychiatric History: Reports: Panic Attack Other Psychiatric History: Hx of panic attacks; has not has any for years Endocrine/Metabolic History: Reports: Diabetes, Type II, Hyperparathyroidism, Other (See Below) Other Endocrine/Metabolic History: Hyperkalemia, metabolic acidosis, hyperlipidemia Hematologic History: Reports: Anemia, Blood Transfusion(s), Iron Deficiency Immunologic History: Reports: Immunosuppression Oncologic (Cancer) History: Reports: None Dermatologic History: Reports: Other (See Below) Other Dermatologic History: MRSA - Infectious Disease History Infectious Disease History: Reports: C-Difficile, MRSA, Novel Coronavirus Other Infectious Disease History: MRSA noted in chart, patient denies having it - Past Surgical History Cardiovascular Surgical History: Reports: Other (See Below) Other Cardiovascular Surgeries/Procedures: Cardiac cath stent Respiratory Surgical History: Reports: None GI Surgical History: Reports: Cholecystectomy, Colonoscopy, EGD, Polypectomy Female Surgical History: Reports: Hysterectomy Endocrine Surgical History: Reports: None Musculoskeletal Surgical History: Reports: None Social & Family History - Family History Family Medical History: No Pertinent Family History Cardiac: Reports: [place], Other (See Below) Other Cardiac Family History: Father of [place]. Brother in 50s [place] Endocrine/Metabolic: Reports: Diabetes, type II Other Endocrine/Metabolic Family History: Mother has diabetes Oncologic: Reports: Colon Other Oncologic Family History: Mother had colon cancer - Caffeine Use Caffeine Use: Reports: Coffee Other Caffeine Use: 3 cups of coffee Caffeine Use Comment: 1 CUP OCCASSIONALLY OF COFFEE. 3 CUPS TEA - Living Situation & Occupation Living situation: Reports: , with Spouse, with Family Occupation: Disabled ED ROS GENERAL - Review of Systems Review Of Systems: Comprehensive ROS is negative, except as noted in HPI. ED EXAM, GENERAL - Physical Exam Exam: See Below Exam Limited By: No Limitations General Appearance: Alert, No Apparent Distress Eye Exam: Bilateral Eye: EOMI Ears: Normal External Exam, Hearing Grossly Normal Nose: Normal Inspection Neck: Normal Inspection Respiratory/Chest: Decreased Breath Sounds (bases) Cardiovascular: Normal Peripheral Pulses, Regular Rate, Rhythm GI/Abdominal: Normal Bowel Sounds, Soft Extremities: Other (dialysis shunt on left upper arm) Neurological: Alert, Oriented, Normal Cognition Skin Exam: Warm, Dry, Intact Course - Vital Signs Last Recorded V/S: Last Vital Signs Temp 98.2 F 08/08/20 18:15 Pulse 66 08/08/20 18:15 Resp 13 08/08/20 18:15 BP 160/66 H 08/08/20 18:15 Pulse Ox 97 08/08/20 18:15 - Orders/Labs/Meds Orders: Active Orders 24 hr Category Date Time Status CULTURE BLOOD [BC] Stat Lab 08/08/20 18:21 Received Labs: Laboratory Tests 08/08/20 08/08/20 08/08/20 Range/Units 18:21 18:21 18:21 WBC 6.0 (5.0-10.0) 10^3/uL RBC 3.13 L (4.2-5.4) 10^6/uL Hgb 9.3 L (12.0-16.0) g/dL Hct 29.9 L (37.0-47.0) % MCV 95.5 (80-100) fL MCH 29.7 (27.0-34.0) pg MCHC 31.1 L (33.0-35.0) g/dL Plt Count 177 (150-450) 10^3/uL Neut % (Auto) 72.3 (42.2-75.2) % Lymph % (Auto) 13.8 L (20.5-50.1) % [place] % (Auto) 8.6 H (2-8) % Eos % (Auto) 5.0 H (1.0-3.0) % Baso % (Auto) 0.3 (0.0-1.0) % Sodium 138 (136-145) mmol/L Potassium 3.9 (3.5-5.1) mmol/L Chloride 97 L (98-107) mmol/L Carbon Dioxide 30 (21-32) mmol/L Anion Gap 14.9 H (7-13) mEq/L BUN 21 H D (7-18) mg/dL Creatinine 5.84 H* D (0.55-1.02) mg/dL Est Cr Clr Drug Dosing 7.73 mL/min Estimated GFR (MDRD) 7 BUN/Creatinine Ratio 3.6 (No establ ref range) Glucose 89 (74-99) mg/dL Lactic Acid 0.9 (0.4-2.0) mmol/L Calcium 8.4 L (8.5-10.1) mg/dL Total Bilirubin 0.8 (0.2-1.0) mg/dL AST 11 L (15-37) U/L ALT 9 L (14-59) U/L Alkaline Phosphatase 102 (46-116) U/L Troponin I 0.040 (0.000-0.056) ng/mL B-Natriuretic Peptide 4100 H (0-100) pg/ml Total Protein 7.5 (6.4-8.2) g/dL Albumin 3.4 (3.4-5.0) g/dL Globulin 4.1 Albumin/Globulin Ratio 0.8 - Re-Assessments/Exams Free Text/Narrative Re-Assessment/Exam: 08/08/20 23:[address] results of CT patient left with family member. Departure - Departure Time of Disposition: 19:55 Disposition: Left Without Being Seen 07 Condition: Undetermined Clinical Impression: Dialysis patient, Elevated brain natriuretic peptide (BNP) level Chronic pain Qualifiers: Chronic pain type: other chronic pain Qualified Code(s): G89.29 - Other chronic pain Referrals: PCP,None [Primary Care Provider] - Forms: ED Department Discharge Sepsis Event Note (ED) - Focused Exam Vital Signs: Vital Signs Temp Pulse Resp BP Pulse Ox 08/08/20 18:15 98.2 F 66 13 160/66 H 97 - My Orders Last 24 Hours: My Active Orders 08/08/20 18:21 CULTURE BLOOD [BC] Stat - Assessment/Plan Last 24 Hours: My Active Orders 08/08/20 18:21 CULTURE BLOOD [BC] Stat
[2020-08-08 18:54] LABS: ANION GAP 14.9 mEq/L (7-13)
--- NOTE | 2020-08-08 19:44 | CT ---
PROCEDURE INFORMATION: Exam: CT Chest Without Contrast; Diagnostic Exam date and time: 08/08/2020 7:01 PM Age: 69 years old Clinical indication: Other: Chest pain; Additional info: Lateral cp dialysis patient HX covid TECHNIQUE: Imaging protocol: Diagnostic computed tomography of the chest without contrast. Radiation optimization: All CT scans at this facility use at least one of these dose optimization techniques: automated exposure control; mA and/or kV adjustment per patient size (includes targeted exams where dose is matched to clinical indication); or iterative reconstruction. COMPARISON: CR Chest 1V Frontal 10/03/2019 7:27 AM FINDINGS: Lungs: There is moderate diffuse prominence of the interstitium with mild patchy ground-glass infiltrates. There is moderate vascular congestion. No lobar consolidation. Pleural spaces: Small right pleural effusion. No pneumothorax. Heart: Moderate cardiomegaly is identified. There are severe LAD and circumflex coronary artery calcifications. Right chest wall pacemaker and lead wires. Pulmonary arteries: Pulmonary trunk measures 4.0 cm. Aorta: Atherosclerotic calcification. No aortic aneurysm. Veins: Dilated inferior vena cava may reflect right heart disease disease. Lymph nodes: Unremarkable. No enlarged lymph nodes. Gallbladder and bile ducts: Metallic sutures right upper quadrant compatible with cholecystectomy. Kidneys and ureters: Left well-circumscribed 3.1 cm water density renal peripelvic cyst. Right 0.9 cm well-demarcated renal cortical hypodensity, statistically compatible with cyst. Bilateral cortical renal atrophy. Stomach and bowel: Diverticulosis. Bones/joints: Unremarkable. No acute fracture. Soft tissues: Unremarkable. IMPRESSION: 1. Bilateral vascular congestion and bilateral interstitial symmetrical infiltrates. Differential diagnosis includes interstitial edema/congestive heart failure or fluid overload. If upper respiratory tract symptoms cannot exclude underlying pneumonitis. Findings not typical of COVID-19 pneumonia. 2. Small right pleural effusion. 3. Enlarged main pulmonary trunk consistent with pulmonary hypertension. 4. Chronic findings as above. COMMENTS: Consistent with the [employer]'s Incidental Findings Committee white paper (J Am Tee Radiol 2018): Any incidental renal lesion less than 1 cm or classified as too small to characterize, or any incidental cystic renal lesion characterized as simple-appearing, is likely benign. No follow-up imaging is recommended for these lesions per consensus recommendations based on imaging criteria.
--- NOTE | 2020-08-08 19:52 | CT ---
PROCEDURE INFORMATION: Exam: CT Thoracic Spine Without Contrast Exam date and time: 08/08/2020 7:01 PM Age: 69 years old Clinical indication: Other: Pain; Additional info: Back pain, worse with movement TECHNIQUE: Imaging protocol: Computed tomography images of the thoracic spine without contrast. Radiation optimization: All CT scans at this facility use at least one of these dose optimization techniques: automated exposure control; mA and/or kV adjustment per patient size (includes targeted exams where dose is matched to clinical indication); or iterative reconstruction. COMPARISON: No relevant prior studies available. FINDINGS: Vertebral: There is anatomic alignment of the thoracic vertebral bodies. Generalized osteopenia. No acute fracture. No evidence of listhesis. No osteolytic or osteoblastic focal osseous abnormality. No aggressive osseous process. Axial imaging from T1-2 2 T12-L1 is unremarkable for any degenerative disc disease or spondylosis. No severe spinal canal stenosis. No significant neural foraminal narrowing. Soft tissues: Right chest wall pacemaker identified with lead wires. No paraspinal or prevertebral soft tissue swelling. IMPRESSION: No acute abnormality of the thoracic spine. No degenerative disc disease.
== END 2020-08-08 19:56 | disposition left against medical advice (07) ==
LOC: DL.ED 17:33
DX: G89.29 Other chronic pain (principal); R79.89 Other specified abnormal findings of blood chemistry; I25.10 Atherosclerotic heart disease of native coronary artery without angina pectoris; I11.0 Hypertensive heart disease with heart failure; I50.9 Heart failure, unspecified; J44.9 Chronic obstructive pulmonary disease, unspecified; E11.9 Type 2 diabetes mellitus without complications; E78.5 Hyperlipidemia, unspecified; I48.91 Unspecified atrial fibrillation; Z99.2 Dependence on renal dialysis; Z88.5 Allergy status to narcotic agent; Z91.041 Radiographic dye allergy status; Z88.6 Allergy status to analgesic agent; Z88.8 Allergy status to other drugs, medicaments and biological substances; Z79.899 Other long term (current) drug therapy
CPT/HCPCS: 36415; 71250; 72128; 80053; 83605; 83880; 84484; 85025; 87040; 93005; 99283; 99285-25

== ENCOUNTER 2021-03-01 04:08 | Emergency (ER) | payer MEDICARE, MEDICAID ==
[2021-03-01 04:25] VITALS: BP 167/73; PULSE 62
--- NOTE | 2021-03-01 04:31 | EDM.PDOC ---
<JanessaIsela Harpal - Last Filed: 03/01/21 05:03> ED HPI GENERAL MEDICAL PROBLEM - General Chief Complaint: General Stated Complaint: AMBULANCE Time Seen by Provider: 03/01/21 04:20 Source of Information: Reports: Patient, EMS History Limitations: Reports: No Limitations - History of Present Illness INITIAL COMMENTS - FREE TEXT/NARRATIVE: ED with c/o general body aches tonight. No cough or chest pain Notes did not take any medications today, Daughter usually helps and not home today. Home health nurse came yesterday Doesn't think she took BP or water pill today. Patient is blind. Reported some SOB tonight, none now. Dialysis yesterday, Not due until Wednesday. Most of [facility]le [facility] that assists with care in [place], Son staying with her stated she doesn't ask him for help. Pain and breathing imporvoed on arrival . - Related Data Allergies Allergy/AdvReac Type Severity Reaction Status Date / Time codeine Allergy Severe Difficulty Verified 03/01/21 04:20 Breathing Iodinated Contrast Media Allergy Severe Difficulty Verified 03/01/21 04:20 Breathing acetaminophen [From Tylenol] Allergy Mild Other Verified 03/01/21 04:20 gabapentin Allergy Other Verified 03/01/21 04:20 ct dye Allergy Severe Renal Uncoded 03/01/21 04:20 Failure Home Meds: Home Meds Calcium Acetate [PhosLo] 1,334 mg PO TIDAC 09/03/14 [History] amLODIPine [Norvasc] 5 mg PO DAILY 01/29/16 [History] cloNIDine HCL [Clonidine HCl] 0.1 mg PO BID 10/03/19 [History] Bumetanide [Bumex] 2 mg PO BID 05/02/20 [History] Dicyclomine [Bentyl] 20 mg PO Q6H PRN 05/02/20 [History] Dorzolamide HCl 1 drp EYERT BID 05/02/20 [History] atorvaSTATin [Lipitor] 20 mg PO DAILY 05/02/20 [History] B Complex W-C No.20/Folic Acid [[place] Caps Softgel] 1 mg PO DAILY 05/03/20 [History] Betamethasone Valerate [Valisone 0.1% Lotion] 1 applic TOP BID PRN 05/03/20 [History] Loperamide [Imodium] 2 mg PO TID 05/03/20 [History] Omeprazole 20 mg PO DAILY 05/03/20 [History] calcium polycarbophiL [Fibercon] 625 mg PO BID 05/03/20 [History] Past Medical History HEENT History: Reports: Impaired Vision Other HEENT History: legally blind Cardiovascular History: Reports: Afib, Angina, Arrhythmia, CAD, Cardiomyopathy, Heart Failure, Hypertension, Pacemaker Other Cardiovascular History: DEFIBRILLATOR Respiratory History: Reports: COPD Gastrointestinal History: Reports: Diverticulosis, Gastritis, GI Bleed, Other (See Below) Other Gastrointestinal History: Status post colonic villotubular adenoma Genitourinary History: Reports: Dialysis, Renal Disease Other Genitourinary History: Nephrotic syndrome MUSIC ORCHESTRATOR History: Reports: Other MUSIC ORCHESTRATOR History: hyst at age 24yo Musculoskeletal History: Reports: Other (See Below) Other Musculoskeletal History: Sprain of psoas muscle and sprain of left foot. Pain in shoulder Neurological History: Reports: Headaches, Chronic Psychiatric History: Reports: Panic Attack Other Psychiatric History: Hx of panic attacks; has not has any for years Endocrine/Metabolic History: Reports: Diabetes, Type II, Hyperparathyroidism, Other (See Below) Other Endocrine/Metabolic History: Hyperkalemia, metabolic acidosis, hyperlipidemia Hematologic History: Reports: Anemia, Blood Transfusion(s), Iron Deficiency Immunologic History: Reports: Immunosuppression Oncologic (Cancer) History: Reports: None Dermatologic History: Reports: Other (See Below) Other Dermatologic History: MRSA - Infectious Disease History Infectious Disease History: Reports: C-Difficile, MRSA, Novel Coronavirus Other Infectious Disease History: MRSA noted in chart, patient denies having it - Past Surgical History Cardiovascular Surgical History: Reports: Other (See Below) Other Cardiovascular Surgeries/Procedures: Cardiac cath stent Respiratory Surgical History: Reports: None GI Surgical History: Reports: Cholecystectomy, Colonoscopy, EGD, Polypectomy Female Surgical History: Reports: Hysterectomy Endocrine Surgical History: Reports: None Musculoskeletal Surgical History: Reports: None Social & Family History - Family History Family Medical History: No Pertinent Family History Cardiac: Reports: PR, Other (See Below) Other Cardiac Family History: Father of [place]. Brother in 50s [place] Endocrine/Metabolic: Reports: Diabetes, type II Other Endocrine/Metabolic Family History: Mother has diabetes Oncologic: Reports: Colon Other Oncologic Family History: Mother had colon cancer - Caffeine Use Caffeine Use: Reports: Coffee Other Caffeine Use: 3 cups of coffee Caffeine Use Comment: 1 CUP OCCASSIONALLY OF COFFEE. 3 CUPS TEA - Living Situation & Occupation Living situation: Reports: , with Spouse, with Family Occupation: Disabled ED ROS GENERAL - Review of Systems Review Of Systems: Comprehensive ROS is negative, except as noted in HPI. ED EXAM, GENERAL - Physical Exam Exam: See Below Exam Limited By: No Limitations General Appearance: Alert, No Apparent Distress, Thin Ears: Normal External Exam, Hearing Grossly Normal Nose: Normal Inspection Throat/Mouth: Normal Inspection Head: Atraumatic, Normocephalic Neck: Normal Inspection Respiratory/Chest: No Respiratory Distress Cardiovascular: Normal Peripheral Pulses, Other (dialysis shunt left upper extremity) GI/Abdominal: Normal Bowel Sounds, Soft, Non-Tender Extremities: Normal Inspection Neurological: Alert, Oriented (person palce), Normal Cognition, Other (blind) Psychiatric: Normal Affect Skin Exam: Warm, Dry, Intact, Normal Color #1 Interpretation EKG Date: 03/01/21 Time: 04:30 Rhythm: NSR Rate (Beats/Min): 63 Vera: Normal P-Wave: Present QRS: LBBB ST-T: Normal Comparison: No Change Departure - Departure Disposition: Home, Self-Care 01 Clinical Impression: Medication care plan discussed with patient - Discharge Information Instructions: Medical Screening Exam Forms: ED Department Discharge Additional Instructions: Have your family help you take your medications as they are prescribed. Failure to take you medications as directed can exacerbate your medical conditions and causes serious symptoms and even . If you have any new symptoms or concerns contact your primary care facility or return to the ER. <Eric Stacy - Last Filed: 03/01/21 07:26> Course - Vital Signs Last Recorded V/S: Last Vital Signs Temp 97.4 F 03/01/21 04:24 Pulse 62 03/01/21 04:24 Resp 15 03/01/21 04:24 BP 167/73 H 03/01/21 04:24 Pulse Ox 97 03/01/21 04:24 - Orders/Labs/Meds Orders: Active Orders 24 hr Category Date Time Status Chest 1V Frontal [CR] Urgent Exams 03/01/21 04:31 Taken UA RFX COURTNEY AND CULT IF INDIC [URIN] Urgent Lab 03/01/21 04:34 Ordered Labs: Laboratory Tests 0903/01/21 03/01/21 Range/Units 04:48 04:48 04:48 WBC 4.2 L (5.0-10.0) 10^3/uL RBC 3.65 L (4.2-5.4) 10^6/uL Hgb 11.1 L D (12.0-16.0) g/dL Hct 34.9 L (37.0-47.0) % MCV 95.6 (80-100) fL MCH 30.4 (27.0-34.0) pg MCHC 31.8 L (33.0-35.0) g/dL Plt Count 167 (150-450) 10^3/uL Neut % (Auto) 70.0 (42.2-75.2) % Lymph % (Auto) 16.8 L (20.5-50.1) % [place] % (Auto) 8.0 (2-8) % Eos % (Auto) 4.5 H (1.0-3.0) % Baso % (Auto) 0.7 (0.0-1.0) % PT 11.9 (9.0-12.0) SEC INR 1.2 (0.9-1.2) Sodium 138 (136-145) mmol/L Potassium 3.5 (3.5-5.1) mmol/L Chloride 99 (98-107) mmol/L Carbon Dioxide 32 (21-32) mmol/L Anion Gap 10.5 (7-13) mEq/L BUN 12 (7-18) mg/dL Creatinine 4.33 H D (0.55-1.02) mg/dL Est Cr Clr Drug Dosing TNP Estimated GFR (MDRD) 10 BUN/Creatinine Ratio 2.8 (No establ ref range) Glucose 97 (70-99) mg/dL Lactic Acid (0.4-2.0) mmol/L Calcium 8.4 L (8.5-10.1) mg/dL Total Bilirubin 0.6 (0.2-1.0) mg/dL AST 12 L (15-37) U/L ALT 11 L (14-59) U/L Alkaline Phosphatase 107 (46-116) U/L C-Reactive Protein 0.2 (0.0-0.9) mg/dL B-Natriuretic Peptide (0-100) pg/ml Total Protein 6.9 (6.4-8.2) g/dL Albumin 3.2 L (3.4-5.0) g/dL Globulin 3.7 Albumin/Globulin Ratio 0.86 03/01/21 03/01/21 Range/Units 04:48 04:48 WBC (5.0-10.0) 10^3/uL RBC (4.2-5.4) 10^6/uL Hgb (12.0-16.0) g/dL Hct (37.0-47.0) % MCV (80-100) fL MCH (27.0-34.0) pg MCHC (33.0-35.0) g/dL Plt Count (150-450) 10^3/uL Neut % (Auto) (42.2-75.2) % Lymph % (Auto) (20.5-50.1) % [place] % (Auto) (2-8) % Eos % (Auto) (1.0-3.0) % Baso % (Auto) (0.0-1.0) % PT (9.0-12.0) SEC INR (0.9-1.2) Sodium (136-145) mmol/L Potassium (3.5-5.1) mmol/L Chloride (98-107) mmol/L Carbon Dioxide (21-32) mmol/L Anion Gap (7-13) mEq/L BUN (7-18) mg/dL Creatinine (0.55-1.02) mg/dL Est Cr Clr Drug Dosing Estimated GFR (MDRD) BUN/Creatinine Ratio (No establ ref range) Glucose (70-99) mg/dL Lactic Acid 0.7 (0.4-2.0) mmol/L Calcium (8.5-10.1) mg/dL Total Bilirubin (0.2-1.0) mg/dL AST (15-37) U/L ALT (14-59) U/L Alkaline Phosphatase (46-116) U/L C-Reactive Protein (0.0-0.9) mg/dL B-Natriuretic Peptide 3850 H (0-100) pg/ml Total Protein (6.4-8.2) g/dL Albumin (3.4-5.0) g/dL Globulin Albumin/Globulin Ratio Meds: Medications Discontinued Medications Generic Name Dose Route Start Last Admin Trade Name Freq PRN Reason Stop Dose Admin Bumetanide 1 mg 03/01/21 04:52 03/01/21 05:05 Bumetanide 1 Mg/4 Ml Mdv IVPUSH 03/01/21 04:53 1 mg ONETIME ONE Administration Departure - Departure Time of Disposition: 07:21 Condition: Good - Discharge Information *PRESCRIPTION DRUG MONITORING PROGRAM REVIEWED*: Not Applicable *COPY OF PRESCRIPTION DRUG MONITORING REPORT IN PATIENT JAMSEON: Not Applicable Sepsis Event Note (ED) - Focused Exam Vital Signs: Vital Signs Temp Pulse Resp BP Pulse Ox 03/01/21 04:24 97.4 F 62 15 167/73 H 97
[2021-03-01] MEDS ORDERED: Bumetanide 1 MG/4 ML MDV IVPUSH ONE (04:52)
[2021-03-01 05:14] LABS: ANION GAP 10.5 mEq/L (7-13); CHLORIDE,CL 99 mmol/L (98-107); SODIUM,NA 138 mmol/L (136-145)
--- NOTE | 2021-03-01 08:23 | CR ---
PROCEDURE INFORMATION: Exam: XR Chest Exam date and time: 03/01/2021 4:54 AM Age: 70 years old Clinical indication: Other: HTN, dialysis; Additional info: Covid one month ago. Back pain TECHNIQUE: Imaging protocol: XR of the chest. Views: 1 view. COMPARISON: 1. CT Chest wo Cont 08/08/2020 7:01 PM 2. Portable AP chest 05/02/2020 FINDINGS: Tubes, catheters and devices: Right AICD is unchanged. Lungs: Diffuse patchy ground-glass lung opacification relatively sparing the lung apices. Pleural spaces: No pneumothorax or pleural effusion. Heart/Mediastinum: Chronic mildly worsened cardiomegaly. Coronary artery stents. Vasculature: Increased prominence of the central vessels. Bones/joints: Intact and normally aligned. No suspicious lesion. Other findings: Aortosclerosis. IMPRESSION: New abnormalities include worsened cardiomegaly and evidence of pulmonary vascular congestion but no pleural effusion and diffuse ground-glass lung infiltrates indicating pneumonia versus additional evidence of mild pulmonary edema.
== END 2021-03-01 07:40 | disposition home or self-care (01) ==
LOC: DL.ED 04:08
DX: Z76.89 Persons encountering health services in other specified circumstances (principal); I48.91 Unspecified atrial fibrillation; I25.10 Atherosclerotic heart disease of native coronary artery without angina pectoris; I11.0 Hypertensive heart disease with heart failure; I50.9 Heart failure, unspecified; J44.9 Chronic obstructive pulmonary disease, unspecified; E11.9 Type 2 diabetes mellitus without complications; D64.9 Anemia, unspecified; I44.7 Left bundle-branch block, unspecified; Z88.5 Allergy status to narcotic agent; Z91.041 Radiographic dye allergy status; Z88.6 Allergy status to analgesic agent; Z88.8 Allergy status to other drugs, medicaments and biological substances; Z79.899 Other long term (current) drug therapy
CPT/HCPCS: 36415; 71045; 80053; 83605; 83880; 85025; 85610; 86140; 93005; 96374; 99284; J3490

== ENCOUNTER 2021-05-10 14:45 | Emergency (ER) | payer MEDICARE, MEDICAID ==
[2021-05-10 15:11] VITALS: BP 175/72; PULSE 64
--- NOTE | 2021-05-10 16:41 | CR ---
PROCEDURE INFORMATION: Exam: XR Abdomen Exam date and time: 05/10/2021 3:30 PM Age: 70 years old Clinical indication: Other: Loose stools TECHNIQUE: Imaging protocol: XR of the abdomen. Views: Frontal supine view of the abdomen. 1 View. COMPARISON: CT Abdomen Pelvis wo Cont 11/30/2019 11:03 AM FINDINGS: Gastrointestinal tract: Normal. No bowel dilation. Bones/joints: Unremarkable. IMPRESSION: No acute findings.
--- NOTE | 2021-05-10 18:12 | EDM.PDOC ---
ED HPI GENERAL MEDICAL PROBLEM - General Chief Complaint: Abdominal Pain Stated Complaint: AMBULANCE Time Seen by Provider: 05/10/21 15:00 Source of Information: Reports: Patient, EMS, Family History Limitations: Reports: Altered Mental Status (forgetful, family not immediately available.) - History of Present Illness INITIAL COMMENTS - FREE TEXT/NARRATIVE: ED via EMS, reports patient up to [place] and daughter wiped and noticed blood in toilet so called 911. Patient reports no abdominal pain, BM have been sporadic, thinks she just had bm. No reported fever. States was to have A_V fistula reopened lat week but did not have some pills to take prior and does not not know what they are so procedure stopped and scheduled to be redone next week. - Related Data Allergies Allergy/AdvReac Type Severity Reaction Status Date / Time codeine Allergy Severe Difficulty Verified 05/10/21 14:58 Breathing Iodinated Contrast Media Allergy Severe Difficulty Verified 05/10/21 14:58 Breathing acetaminophen [From Tylenol] Allergy Mild Other Verified 05/10/21 14:58 gabapentin Allergy Other Verified 05/10/21 14:58 ct dye Allergy Severe Renal Uncoded 03/01/21 04:20 Failure Home Meds: Home Meds Calcium Acetate [PhosLo] 1,334 mg PO TIDAC 09/03/14 [History] amLODIPine [Norvasc] 5 mg PO DAILY 01/29/16 [History] cloNIDine HCL [Clonidine HCl] 0.1 mg PO BID 10/03/19 [History] Bumetanide [Bumex] 2 mg PO BID 05/02/20 [History] Dicyclomine [Bentyl] 20 mg PO Q6H PRN 05/02/20 [History] Dorzolamide HCl 1 drp EYERT BID 05/02/20 [History] atorvaSTATin [Lipitor] 20 mg PO DAILY 05/02/20 [History] B Complex W-C No.20/Folic Acid [Reggie Caps Softgel] 1 mg PO DAILY 05/03/20 [History] Betamethasone Valerate [Valisone 0.1% Lotion] 1 applic TOP BID PRN 05/03/20 [History] Loperamide [Imodium] 2 mg PO TID 05/03/20 [History] Omeprazole 20 mg PO DAILY 05/03/20 [History] calcium polycarbophiL [Fibercon] 625 mg PO BID 05/03/20 [History] Past Medical History HEENT History: Reports: Impaired Vision Other HEENT History: legally blind Cardiovascular History: Reports: Afib, Angina, Arrhythmia, CAD, Cardiomyopathy, Heart Failure, Hypertension, Pacemaker Other Cardiovascular History: DEFIBRILLATOR Respiratory History: Reports: COPD Gastrointestinal History: Reports: Diverticulosis, Gastritis, GI Bleed, Other (See Below) Other Gastrointestinal History: Status post colonic villotubular adenoma Genitourinary History: Reports: Dialysis, Renal Disease Other Genitourinary History: Nephrotic syndrome HAND GLOVE CLEANER History: Reports: Other HAND GLOVE CLEANER History: hyst at age 24yo Musculoskeletal History: Reports: Other (See Below) Other Musculoskeletal History: Sprain of psoas muscle and sprain of left foot. Pain in shoulder Neurological History: Reports: Headaches, Chronic Psychiatric History: Reports: Panic Attack Other Psychiatric History: Hx of panic attacks; has not has any for years Endocrine/Metabolic History: Reports: Diabetes, Type II, Hyperparathyroidism, Other (See Below) Other Endocrine/Metabolic History: Hyperkalemia, metabolic acidosis, hyperlipidemia Hematologic History: Reports: Anemia, Blood Transfusion(s), Iron Deficiency Immunologic History: Reports: Immunosuppression Oncologic (Cancer) History: Reports: None Dermatologic History: Reports: Other (See Below) Other Dermatologic History: MRSA - Infectious Disease History Infectious Disease History: Reports: C-Difficile, MRSA, Novel Coronavirus Other Infectious Disease History: MRSA noted in chart, patient denies having it - Past Surgical History Cardiovascular Surgical History: Reports: Other (See Below) Other Cardiovascular Surgeries/Procedures: Cardiac cath stent Respiratory Surgical History: Reports: None GI Surgical History: Reports: Cholecystectomy, Colonoscopy, EGD, Polypectomy Female Surgical History: Reports: Hysterectomy Endocrine Surgical History: Reports: None Musculoskeletal Surgical History: Reports: None Social & Family History - Family History Family Medical History: No Pertinent Family History Cardiac: Reports: [place], Other (See Below) Other Cardiac Family History: Father of [place]. Brother in 50s [place] Endocrine/Metabolic: Reports: Diabetes, type II Other Endocrine/Metabolic Family History: Mother has diabetes Oncologic: Reports: Colon Other Oncologic Family History: Mother had colon cancer - Tobacco Use Tobacco Use Status *Q: Never Tobacco User - Caffeine Use Caffeine Use: Reports: Coffee Other Caffeine Use: 3 cups of coffee Caffeine Use Comment: 1 CUP OCCASSIONALLY OF COFFEE. 3 CUPS TEA - Recreational Drug Use Recreational Drug Use: No - Living Situation & Occupation Living situation: Reports: , with Spouse, with Family Occupation: Disabled ED ROS GENERAL - Review of Systems Review Of Systems: Comprehensive ROS is negative, except as noted in HPI. ED EXAM, GI/ABD - Physical Exam Exam: See Below Exam Limited By: No Limitations General Appearance: Alert, No Apparent Distress Eyes: Bilateral: EOMI Ears: Normal External Exam, Hearing Grossly Normal Nose: Normal Inspection Throat/Mouth: Normal Inspection Head: Atraumatic, Normocephalic Neck: Normal Inspection, Full Range of Motion Respiratory/Chest: No Respiratory Distress, Lungs Clear, Normal Breath Sounds Cardiovascular: Normal Peripheral Pulses, Regular Rate, Rhythm GI/Abdominal Exam: Normal Bowel Sounds, Soft, Non-Tender Rectal (Female) Exam: Heme + Stool, Hemorrhoids, Other (small amount soft mucusy seedy yellow stool with dime size spot bright pink blood outer edge of yellow stool. small non thrombosed hemorrhoids. ) Extremities: Normal Range of Motion Neurological: Alert, Memory Loss Recent Events Psychiatric: Normal Affect, Normal Mood Skin Exam: Warm, Dry, Intact Course - Vital Signs Last Recorded V/S: Last Vital Signs Temp 98.4 F 05/10/21 15:01 Pulse 64 05/10/21 15:01 Resp 18 05/10/21 15:01 BP 175/72 H 05/10/21 15:01 Pulse Ox 98 05/10/21 15:01 - Orders/Labs/Meds Labs: Laboratory Tests 05/10/21 05/10/21 05/10/21 Range/Units 15:55 15:55 15:55 WBC 5.5 (5.0-10.0) 10^3/uL RBC 3.49 L (4.2-5.4) 10^6/uL Hgb 10.7 L (12.0-16.0) g/dL Hct 34.0 L (37.0-47.0) % MCV 97.4 (80-100) fL MCH 30.7 (27.0-34.0) pg MCHC 31.5 L (33.0-35.0) g/dL Plt Count 95 L (150-450) 10^3/uL Neut % (Auto) 76.5 H (42.2-75.2) % Lymph % (Auto) 11.8 L (20.5-50.1) % [place] % (Auto) 6.9 (2-8) % Eos % (Auto) 4.4 H (1.0-3.0) % Baso % (Auto) 0.4 (0.0-1.0) % PT 12.5 H (9.0-12.0) SEC INR 1.3 H (0.9-1.2) Sodium (136-145) mmol/L Potassium (3.5-5.1) mmol/L Chloride (98-107) mmol/L Carbon Dioxide (21-32) mmol/L Anion Gap (7-13) mEq/L BUN (7-18) mg/dL Creatinine (0.55-1.02) mg/dL Est Cr Clr Drug Dosing mL/min Estimated GFR (MDRD) BUN/Creatinine Ratio (No establ ref range) Glucose (70-99) mg/dL Calcium (8.5-10.1) mg/dL Total Bilirubin (0.2-1.0) mg/dL AST (15-37) U/L ALT (14-59) U/L Alkaline Phosphatase (46-116) U/L B-Natriuretic Peptide 4000 H (0-100) pg/ml Total Protein (6.4-8.2) g/dL Albumin (3.4-5.0) g/dL Globulin Albumin/Globulin Ratio 11/20/21 Range/Units 15:55 WBC (5.0-10.0) 10^3/uL RBC (4.2-5.4) 10^6/uL Hgb (12.0-16.0) g/dL Hct (37.0-47.0) % MCV (80-100) fL MCH (27.0-34.0) pg MCHC (33.0-35.0) g/dL Plt Count (150-450) 10^3/uL Neut % (Auto) (42.2-75.2) % Lymph % (Auto) (20.5-50.1) % [place] % (Auto) (2-8) % Eos % (Auto) (1.0-3.0) % Baso % (Auto) (0.0-1.0) % PT (9.0-12.0) SEC INR (0.9-1.2) Sodium 138 (136-145) mmol/L Potassium 4.0 (3.5-5.1) mmol/L Chloride 99 (98-107) mmol/L Carbon Dioxide 28 (21-32) mmol/L Anion Gap 15.0 H (7-13) mEq/L BUN 28 H (7-18) mg/dL Creatinine 7.96 H* D (0.55-1.02) mg/dL Est Cr Clr Drug Dosing 6.33 mL/min Estimated GFR (MDRD) 5 BUN/Creatinine Ratio 3.5 (No establ ref range) Glucose 96 (70-99) mg/dL Calcium 8.5 (8.5-10.1) mg/dL Total Bilirubin 0.7 (0.2-1.0) mg/dL AST 16 (15-37) U/L ALT 11 L (14-59) U/L Alkaline Phosphatase 87 (46-116) U/L B-Natriuretic Peptide (0-100) pg/ml Total Protein 6.7 (6.4-8.2) g/dL Albumin 3.2 L (3.4-5.0) g/dL Globulin 3.5 Albumin/Globulin Ratio 0.91 - Re-Assessments/Exams Free Text/Narrative Re-Assessment/Exam: 05/10/21 18:15 attempting to contact family or someone to take patient home. Creatinine elvated as is BNP, patient does not domplain of any SOB or chest pain. Departure - Departure Time of Disposition: 18:45 Disposition: Home, Self-Care 01 Condition: Fair Clinical Impression: Bleeding external hemorrhoids, Elevated brain natriuretic peptide (BNP) level, Dialysis patient - Discharge Information *PRESCRIPTION DRUG MONITORING PROGRAM REVIEWED*: No *COPY OF PRESCRIPTION DRUG MONITORING REPORT IN PATIENT JAMESON: No Instructions: Hemorrhoids, [id number], Dialysis Forms: ED Department Discharge Additional Instructions: Follow up with dialysis limit fluids gentle wiping with frank care monitor follow up if pain , dizziness or large volume of bleeding Sepsis Event Note (ED) - Evaluation Sepsis Screening Result: No Definite Risk - Focused Exam Vital Signs: Vital Signs Temp Pulse Resp BP Pulse Ox 05/10/21 15:01 98.4 F 64 18 175/72 H 98
== END 2021-05-10 18:42 | disposition home or self-care (01) ==
LOC: DL.ED 14:45
DX: K64.4 Residual hemorrhoidal skin tags (principal); R79.0 Abnormal level of blood mineral; I11.0 Hypertensive heart disease with heart failure; I50.9 Heart failure, unspecified; I25.119 Atherosclerotic heart disease of native coronary artery with unspecified angina pectoris; E11.9 Type 2 diabetes mellitus without complications; E05.90 Thyrotoxicosis, unspecified without thyrotoxic crisis or storm; J44.9 Chronic obstructive pulmonary disease, unspecified; Z99.2 Dependence on renal dialysis; Z79.899 Other long term (current) drug therapy; Z95.0 Presence of cardiac pacemaker; Z88.5 Allergy status to narcotic agent; Z91.041 Radiographic dye allergy status
CPT/HCPCS: 36415; 74018; 80053; 82272; 83880; 85025; 85610; 99284-25

== ENCOUNTER 2021-06-25 13:20 | Emergency (ER) | payer MEDICARE, MEDICAID ==
[2021-06-25 13:53] VITALS: BP 152/64; PULSE 70
--- NOTE | 2021-06-25 14:13 | EDM.PDOC ---
ED HPI GENERAL MEDICAL PROBLEM - General Chief Complaint: Gastrointestinal Problem Stated Complaint: STOMACH ACHE / NOT REALLY EATING Time Seen by Provider: 06/25/21 14:00 Source of Information: Reports: Patient, Old Records, RN, RN Notes Reviewed History Limitations: Reports: No Limitations - History of Present Illness INITIAL COMMENTS - FREE TEXT/NARRATIVE: Patient presents to ER from the dialysis unit upstairs with complaints of feeling unwell for "a long time." Pt states she decided to skip dialysis and come to the ER to be checked out. She c/o nausea and constipation. She hasn't felt well for several years. She denies chest pain, or fever. She her son has been researching on the internet and believes she has fungus infection. Denies orthopnea, or edema. Patient is COVID-vaccinated and flu-vaccinated. Onset: Gradual Duration: Chronic Location: Reports: Abdomen, Generalized Quality: Reports: Ache (Cramping) Severity: Moderate Improves with: Reports: None Worsens with: Reports: None Associated Symptoms: Reports: No Other Symptoms Abdomen Pain Score (Numeric/FACES): 8 - Related Data Allergies Allergy/AdvReac Type Severity Reaction Status Date / Time codeine Allergy Severe Difficulty Verified 05/10/21 14:58 Breathing Iodinated Contrast Media Allergy Severe Difficulty Verified 05/10/21 14:58 Breathing acetaminophen [From Tylenol] Allergy Mild Other Verified 05/10/21 14:58 gabapentin Allergy Other Verified 05/10/21 14:58 ct dye Allergy Severe Renal Uncoded 03/01/21 04:20 Failure Home Meds: Home Meds Calcium Acetate [PhosLo] 1,334 mg PO TIDAC 09/03/14 [History] amLODIPine [Norvasc] 5 mg PO DAILY 01/29/16 [History] cloNIDine HCL [Clonidine HCl] 0.1 mg PO BID 10/03/19 [History] Bumetanide [Bumex] 2 mg PO BID 05/02/20 [History] Dicyclomine [Bentyl] 20 mg PO Q6H PRN 05/02/20 [History] Dorzolamide HCl 1 drp EYERT BID 05/02/20 [History] atorvaSTATin [Lipitor] 20 mg PO DAILY 05/02/20 [History] B Complex W-C No.20/Folic Acid [Reggie Caps Softgel] 1 mg PO DAILY 05/03/20 [History] Betamethasone Valerate [Valisone 0.1% Lotion] 1 applic TOP BID PRN 05/03/20 [History] Loperamide [Imodium] 2 mg PO TID 05/03/20 [History] Omeprazole 20 mg PO DAILY 05/03/20 [History] calcium polycarbophiL [Fibercon] 625 mg PO BID 05/03/20 [History] Past Medical History HEENT History: Reports: Impaired Vision Other HEENT History: legally blind Cardiovascular History: Reports: Afib, Angina, Arrhythmia, CAD, Cardiomyopathy, Heart Failure, Hypertension, Pacemaker Other Cardiovascular History: DEFIBRILLATOR Respiratory History: Reports: COPD Gastrointestinal History: Reports: Diverticulosis, Gastritis, GI Bleed, Other (See Below) Other Gastrointestinal History: Status post colonic villotubular adenoma Genitourinary History: Reports: Dialysis, Renal Disease Other Genitourinary History: Nephrotic syndrome ENVIRONMENTAL ATTORNEY History: Reports: Other ENVIRONMENTAL ATTORNEY History: hyst at age 24yo Musculoskeletal History: Reports: Other (See Below) Other Musculoskeletal History: Sprain of psoas muscle and sprain of left foot. Pain in shoulder Neurological History: Reports: Headaches, Chronic Psychiatric History: Reports: Panic Attack Other Psychiatric History: Hx of panic attacks; has not has any for years Endocrine/Metabolic History: Reports: Diabetes, Type II, Hyperparathyroidism, Other (See Below) Other Endocrine/Metabolic History: Hyperkalemia, metabolic acidosis, hyperlipidemia Hematologic History: Reports: Anemia, Blood Transfusion(s), Iron Deficiency Immunologic History: Reports: Immunosuppression Oncologic (Cancer) History: Reports: None Dermatologic History: Reports: Other (See Below) Other Dermatologic History: MRSA - Infectious Disease History Infectious Disease History: Reports: C-Difficile, MRSA, Novel Coronavirus Other Infectious Disease History: MRSA noted in chart, patient denies having it - Past Surgical History Cardiovascular Surgical History: Reports: Other (See Below) Other Cardiovascular Surgeries/Procedures: Cardiac cath stent Respiratory Surgical History: Reports: None GI Surgical History: Reports: Cholecystectomy, Colonoscopy, EGD, Polypectomy Female Surgical History: Reports: Hysterectomy Endocrine Surgical History: Reports: None Musculoskeletal Surgical History: Reports: None Social & Family History - Family History Family Medical History: No Pertinent Family History Cardiac: Reports: VA, Other (See Below) Other Cardiac Family History: Father of VA. Brother in 50s VA Endocrine/Metabolic: Reports: Diabetes, type II Other Endocrine/Metabolic Family History: Mother has diabetes Oncologic: Reports: Colon Other Oncologic Family History: Mother had colon cancer - Tobacco Use Tobacco Use Status *Q: Former Tobacco User Used Tobacco, but Quit: Yes Month/Year Tobacco Last Used: 06/1990 - Caffeine Use Caffeine Use: Reports: Coffee Other Caffeine Use: 3 cups of coffee Caffeine Use Comment: 1 CUP OCCASSIONALLY OF COFFEE. 3 CUPS TEA - Recreational Drug Use Recreational Drug Use: No - Living Situation & Occupation Living situation: Reports: , with Spouse, with Family Occupation: Disabled ED ROS GENERAL - Review of Systems Review Of Systems: Comprehensive ROS is negative, except as noted in HPI. ED EXAM, GI/ABD - Physical Exam Exam: See Below Exam Limited By: No Limitations General Appearance: Alert, No Apparent Distress, Other (Chronically ill appearing) Eyes: Bilateral: Normal Appearance (blind) Nose: Normal Inspection Throat/Mouth: Normal Voice, No Airway Compromise Head: Atraumatic, Normocephalic Neck: Normal Inspection, Other (No JVD) Respiratory/Chest: No Respiratory Distress, No Accessory Muscle Use, Decreased Breath Sounds, Rales Cardiovascular: Regular Rate, Rhythm GI/Abdominal Exam: Soft, Tender (Diffuse/generalized tenderness to palpation), Abnormal Bowel Sounds (Slightly hyperactive bowel sounds). No: Guarding, Rigid, Rebound Back Exam: Normal Inspection Extremities: Normal Inspection, Normal Range of Motion, Non-Tender, No Pedal Edema Neurological: Alert, Oriented, No Motor/Sensory Deficits Psychiatric: Normal Affect, Normal Mood Skin Exam: Warm, Dry, Intact, Normal Color, No Rash Course - Vital Signs Last Recorded V/S: Last Vital Signs Temp 97.8 F 06/25/21 13:47 Pulse 70 06/25/21 13:47 Resp 18 06/25/21 13:47 BP 152/64 H 06/25/21 13:47 Pulse Ox 98 06/25/21 13:47 - Orders/Labs/Meds Orders: Active Orders 24 hr Category Date Time Status Peripheral IV Care [RC] . DIRECTED Care 06/25/21 14:14 Active Sodium Chloride 0.9% [Saline Flush] Med 06/25/21 14:14 Active 10 ml FLUSH ASDIRECTED PRN Peripheral IV Insertion Adult [OM.PC] Stat Oth 06/25/21 14:14 Ordered Medication Orders Sodium Chloride (Sodium Chloride 0.9% 10 Ml Syringe) 10 ml FLUSH ASDIRECTED PRN PRN Reason: Keep Vein Open Last Admin: 06/25/21 14:22 Dose: 10 ml Documented by: MACARIO Labs: Laboratory Tests 06/25/21 06/25/21 06/25/21 Range/Units 14:17 14:17 14:17 WBC 5.7 (5.0-10.0) 10^3/uL RBC 3.45 L (4.2-5.4) 10^6/uL Hgb 10.7 L (12.0-16.0) g/dL Hct 34.3 L (37.0-47.0) % MCV 99.4 (80-100) fL MCH 31.0 (27.0-34.0) pg MCHC 31.2 L (33.0-35.0) g/dL Plt Count 123 L (150-450) 10^3/uL Neut % (Auto) 78.9 H (42.2-75.2) % Lymph % (Auto) 8.5 L (20.5-50.1) % [place] % (Auto) 7.4 (2-8) % Eos % (Auto) 4.8 H (1.0-3.0) % Baso % (Auto) 0.4 (0.0-1.0) % Sodium 140 (136-145) mmol/L Potassium 5.8 H D (3.5-5.1) mmol/L Chloride 99 (98-107) mmol/L Carbon Dioxide 29 (21-32) mmol/L Anion Gap 17.8 H (7-13) mEq/L BUN 48 H (7-18) mg/dL Creatinine 8.90 H* (0.55-1.02) mg/dL Est Cr Clr Drug Dosing 5.66 mL/min Estimated GFR (MDRD) 4 BUN/Creatinine Ratio 5.4 (No establ ref range) Glucose 90 (70-99) mg/dL Lactic Acid 1.0 (0.4-2.0) mmol/L Calcium 9.4 (8.5-10.1) mg/dL Total Bilirubin 0.7 (0.2-1.0) mg/dL AST 25 (15-37) U/L ALT 14 (14-59) U/L Alkaline Phosphatase 124 H (46-116) U/L Total Protein 7.6 (6.4-8.2) g/dL Albumin 3.4 (3.4-5.0) g/dL Globulin 4.2 Albumin/Globulin Ratio 0.8 Amylase 23 L (25-115) U/L Lipase 12 L (73-393) U/L Meds: Medications Generic Name Dose Route Start Last Admin Trade Name Freq PRN Reason Stop Dose Admin Sodium Chloride 10 ml 06/25/21 14:14 06/25/21 14:22 Sodium Chloride 0.9% 10 Ml Syringe FLUSH 10 ml ASDIRECTED PRN Administration Keep Vein Open Discontinued Medications Generic Name Dose Route Start Last Admin Trade Name Freq PRN Reason Stop Dose Admin Calcium Chloride 1 gm 06/25/21 15:35 06/25/21 16:02 Calcium Chloride 10% 1 Gm/10 Ml Syringe IVPUSH 06/25/21 15:36 1 gm ONETIME ONE Administration Ondansetron HCl 4 mg 06/25/21 14:14 06/25/21 14:22 Ondansetron 4 Mg/2 Ml Sdv IV 06/25/21 14:15 4 mg ONETIME ONE Administration Sodium Polystyrene Sulfonate 45 gm 06/25/21 15:36 06/25/21 16:02 Sodium Polystyrene Sulfonate 15 Gm/60 Ml Susp 60 Ml Bot PO 06/25/21 15:37 45 gm NOW ONE Administration - Radiology Interpretation Free Text/Narrative:: [facility] Final Radiology Report Call: [phone] assistance Online chat: [email or web address] Name: EARNESTINE RUIZ Age: 70Years F Date: 06/25/2021 SSN: -- : 1950 Study: CT CHEST WO CONT Requesting Physician: ROBE LOPEZ Images: [id number] Addl Studies: Provided Clinical History: FLUID RIGHT LUNG BASE Contrast: Without Contrast Medium: Contrast Amount: Contrast Method: Page 1 of 2 PROCEDURE INFORMATION: Exam: CT Chest Without Contrast; Diagnostic Exam date and time: 06/25/2021 2:44 PM Age: 70 years old Clinical indication: Other: Fluid right lung base TECHNIQUE: Imaging protocol: Diagnostic computed tomography of the chest without contrast. Radiation optimization: All CT scans at this facility use at least one of these dose optimization techniques: automated exposure control; mA and/or kV adjustment per patient size (includes targeted exams where dose is matched to clinical indication); or iterative reconstruction. COMPARISON: CT Chest wo Cont 08/08/2020 7:01 PM FINDINGS: Tubes, catheters and devices: Pacemaker well-positioned, leads are intact. Lungs: Unremarkable. No consolidation. No masses. Pleural spaces: Moderate to large sized right pleural effusion and small left pleural effusion. Heart: Cardiomegaly. Aorta: Unremarkable. No aortic aneurysm. Lymph nodes: Unremarkable. No enlarged lymph nodes. Intraperitoneal space: Please see separately dictated CT scan of the abdomen and pelvis for full discussion of abdominal findings. Bones/joints: Unremarkable. No acute fracture. Soft tissues: Unremarkable. Other findings: Patchy areas of ill-defined opacification bilaterally in an appearance suggestive of CHF. EARNESTINE RUIZ | Final Radiology Report CONFIDENTIALITY STATEMENT This report is intended only for use by the referring physician, and only in accordance with law. If you received this in error, call [phone]. Page 2 of 2 IMPRESSION: Cardiomegaly with findings of CHF and bilateral pleural effusions. Thank you for allowing us to participate in the care of your patient. Dictated and Authenticated by: Lemuel Goodwin MD 06/25/2021 3:07 PM Central Time ([place] & [place]) [facility] Final Radiology Report Call: [phone] assistance Online chat: [email or web address] Name: EARNESTINE RUIZ Age: 70Years F Date: 06/25/2021 SSN: -- : 1950 Study: CT CHEST WO CONT Requesting Physician: ROBE LOPEZ Images: [id number] Addl Studies: Provided Clinical History: FLUID RIGHT LUNG BASE Contrast: Without Contrast Medium: Contrast Amount: Contrast Method: Page 1 of 2 PROCEDURE INFORMATION: Exam: CT Chest Without Contrast; Diagnostic Exam date and time: 06/25/2021 2:44 PM Age: 70 years old Clinical indication: Other: Fluid right lung base TECHNIQUE: Imaging protocol: Diagnostic computed tomography of the chest without contrast. Radiation optimization: All CT scans at this facility use at least one of these dose optimization techniques: automated exposure control; mA and/or kV adjustment per patient size (includes targeted exams where dose is matched to clinical indication); or iterative reconstruction. COMPARISON: CT Chest wo Cont 08/08/2020 7:01 PM FINDINGS: Tubes, catheters and devices: Pacemaker well-positioned, leads are intact. Lungs: Unremarkable. No consolidation. No masses. Pleural spaces: Moderate to large sized right pleural effusion and small left pleural effusion. Heart: Cardiomegaly. Aorta: Unremarkable. No aortic aneurysm. Lymph nodes: Unremarkable. No enlarged lymph nodes. Intraperitoneal space: Please see separately dictated CT scan of the abdomen and pelvis for full discussion of abdominal findings. Bones/joints: Unremarkable. No acute fracture. Soft tissues: Unremarkable. Other findings: Patchy areas of ill-defined opacification bilaterally in an appearance suggestive of CHF. EARNESTINE RUIZ | Final Radiology Report CONFIDENTIALITY STATEMENT This report is intended only for use by the referring physician, and only in accordance with law. If you received this in error, call [phone]. Page 2 of 2 IMPRESSION: Cardiomegaly with findings of CHF and bilateral pleural effusions. Thank you for allowing us to participate in the care of your patient. Dictated and Authenticated by: Lemuel Goodwin MD 06/25/2021 3:07 PM Central Time ([place] & [place]) - Re-Assessments/Exams Free Text/Narrative Re-Assessment/Exam: 06/25/21 16:10 Pt found to have fluid overload/anasarca, constipation, and hyperkalemia. Plan to d/c pt home after IV Ca++ for hyperkalemia, and oral Kayexalate for both hyperkalemia and constipation. Dialysis agrees to run the pt tomorrow at 1030HRS for fluid overload. Departure - Departure Time of Disposition: 16:16 Disposition: Home, Self-Care 01 Condition: Fair Clinical Impression: Anasarca associated with disorder of kidney, Hyperkalemia Constipation Qualifiers: Constipation type: slow transit constipation Qualified Code(s): K59.01 - Slow transit constipation Fluid overload Qualifiers: Hypervolemia type: other Qualified Code(s): E87.79 - Other fluid overload - Discharge Information *PRESCRIPTION DRUG MONITORING PROGRAM REVIEWED*: Not Applicable *COPY OF PRESCRIPTION DRUG MONITORING REPORT IN PATIENT JAMESON: Not Applicable Instructions: Constipation, Adult, [id number], Abdominal Pain, Adult, [id number], Eating Plan for Dialysis, [id number] Forms: ED Department Discharge Additional Instructions: Rx: Zofran 4mg Take the Kayexalate as soon as you get home. Go to dialysis tomorrow, Jun.26 at 10:30AM. Sepsis Event Note (ED) - Evaluation Sepsis Screening Result: No Definite Risk - Focused Exam Vital Signs: Vital Signs Temp Pulse Resp BP Pulse Ox 06/25/21 13:47 97.8 F 70 18 152/64 H 98 - My Orders Last 24 Hours: My Active Orders 06/25/21 14:14 Peripheral IV Care [RC] . DIRECTED Sodium Chloride 0.9% [Saline Flush] 10 ml FLUSH ASDIRECTED PRN Peripheral IV Insertion Adult [OM.PC] Stat - Assessment/Plan Last 24 Hours: My Active Orders 06/25/21 14:14 Peripheral IV Care [RC] . DIRECTED Sodium Chloride 0.9% [Saline Flush] 10 ml FLUSH ASDIRECTED PRN Peripheral IV Insertion Adult [OM.PC] Stat
[2021-06-25] MEDS ORDERED: Ondansetron 4 MG/2 ML SDV IV ONE (14:14)
[2021-06-25] MEDS ORDERED: Sodium Chloride 0.9% 10 ML Syringe FLUSH PRN (14:14)
[2021-06-25 14:44] LABS: ANION GAP 17.8 mEq/L (7-13)
--- NOTE | 2021-06-25 15:06 | CT ---
PROCEDURE INFORMATION: Exam: CT Abdomen And Pelvis Without Contrast Exam date and time: 06/25/2021 2:34 PM Age: 70 years old Clinical indication: Abdominal pain; Generalized; Prior surgery; Surgery date: 6+ months; Surgery type: Cholecystectomy, hysterectomy; Additional info: Gen. Abdominal pain, nausea TECHNIQUE: Imaging protocol: Computed tomography of the abdomen and pelvis without contrast. Radiation optimization: All CT scans at this facility use at least one of these dose optimization techniques: automated exposure control; mA and/or kV adjustment per patient size (includes targeted exams where dose is matched to clinical indication); or iterative reconstruction. COMPARISON: CT Abdomen Pelvis wo Cont 11/30/2019 11:03 AM FINDINGS: Pleural spaces: Bilateral pleural effusions, right greater than left. Evaluation of the lung bases suggests CHF. Heart: Cardiomegaly. Liver: Normal. No mass. Gallbladder and bile ducts: Surgical clips in the right upper quadrant adjacent to the gallbladder. Gallstones in the gallbladder lumen without evidence for acute cholecystitis. Pancreas: Normal. No ductal dilation. Spleen: Normal. No splenomegaly. Adrenal glands: Normal. No mass. Kidneys and ureters: Bilateral renal cortical atrophy. Stomach and bowel: Circumferential wall thickening of the gastric antrum suggests antral gastritis. Appendix: No evidence of appendicitis. Intraperitoneal space: Small amount of free fluid in the dependent pelvis. Vasculature: The portal vein is somewhat enlarged and there is surrounding edema. Cannot exclude portal vein thrombosis. Consider ultrasound or contrast-enhanced CT for further assessment. Lymph nodes: Unremarkable. No enlarged lymph nodes. Urinary bladder: Unremarkable as visualized. Reproductive: Unremarkable as visualized. Bones/joints: Unremarkable. No acute fracture. Soft tissues: Anasarca. IMPRESSION: 1. Cardiomegaly, bilateral pleural effusions and CHF. 2. Anasarca. 3. Consider ultrasound to better evaluate for possible portal vein thrombosis.
--- NOTE | 2021-06-25 15:08 | CT ---
PROCEDURE INFORMATION: Exam: CT Chest Without Contrast; Diagnostic Exam date and time: 06/25/2021 2:44 PM Age: 70 years old Clinical indication: Other: Fluid right lung base TECHNIQUE: Imaging protocol: Diagnostic computed tomography of the chest without contrast. Radiation optimization: All CT scans at this facility use at least one of these dose optimization techniques: automated exposure control; mA and/or kV adjustment per patient size (includes targeted exams where dose is matched to clinical indication); or iterative reconstruction. COMPARISON: CT Chest wo Cont 08/08/2020 7:01 PM FINDINGS: Tubes, catheters and devices: Pacemaker well-positioned, leads are intact. Lungs: Unremarkable. No consolidation. No masses. Pleural spaces: Moderate to large sized right pleural effusion and small left pleural effusion. Heart: Cardiomegaly. Aorta: Unremarkable. No aortic aneurysm. Lymph nodes: Unremarkable. No enlarged lymph nodes. Intraperitoneal space: Please see separately dictated CT scan of the abdomen and pelvis for full discussion of abdominal findings. Bones/joints: Unremarkable. No acute fracture. Soft tissues: Unremarkable. Other findings: Patchy areas of ill-defined opacification bilaterally in an appearance suggestive of CHF. IMPRESSION: Cardiomegaly with findings of CHF and bilateral pleural effusions.
[2021-06-25] MEDS ORDERED: Calcium Chloride 10% 1 GM/10 ML Syringe IVPUSH ONE (15:35)
[2021-06-25] MEDS ORDERED: Sodium Polystyrene Sulfonate 15 GM/60 ML Susp 60 ML Bot PO ONE (15:36)
== END 2021-06-25 16:35 | disposition home or self-care (01) ==
LOC: DL.ED 13:20
DX: K59.01 Slow transit constipation (principal); E87.5 Hyperkalemia; I11.0 Hypertensive heart disease with heart failure; I50.9 Heart failure, unspecified; R60.1 Generalized edema; I48.91 Unspecified atrial fibrillation; I25.10 Atherosclerotic heart disease of native coronary artery without angina pectoris; J44.9 Chronic obstructive pulmonary disease, unspecified; E11.9 Type 2 diabetes mellitus without complications; E78.5 Hyperlipidemia, unspecified; D50.9 Iron deficiency anemia, unspecified; Z87.891 Personal history of nicotine dependence; Z88.5 Allergy status to narcotic agent; Z91.041 Radiographic dye allergy status; Z88.6 Allergy status to analgesic agent; Z88.8 Allergy status to other drugs, medicaments and biological substances; Z79.899 Other long term (current) drug therapy
CPT/HCPCS: 36415; 71250; 74176; 80053; 82150; 83605; 83690; 85025; 96374; 96375; 99284; A9270; J2405

== ENCOUNTER 2021-07-30 23:56 | Emergency (ER) | payer MEDICARE, MEDICAID ==
[2021-07-31 00:12] VITALS: BP 122/56; PULSE 66
[2021-07-31 01:17] LABS: ANION GAP 14.9 mEq/L (7-13)
[2021-07-31] MEDS ORDERED: cefTRIAXone 1 GM in Sodium Chloride 0.9% 50 ML IV ONE (01:58)
== END 2021-07-31 02:39 | disposition home or self-care (01) ==
LOC: DL.ED 23:56 → EEVIPCON 23:56 → DL.ED 07-31 02:39
DX: N30.01 Acute cystitis with hematuria (principal); L89.151 Pressure ulcer of sacral region, stage 1; E11.22 Type 2 diabetes mellitus with diabetic chronic kidney disease; I13.0 Hypertensive heart and chronic kidney disease with heart failure and stage 1 through stage 4 chronic kidney disease, or unspecified chronic kidney disease; N18.4 Chronic kidney disease, stage 4 (severe); I50.9 Heart failure, unspecified; J44.9 Chronic obstructive pulmonary disease, unspecified; Z95.0 Presence of cardiac pacemaker; Z99.2 Dependence on renal dialysis; Z88.5 Allergy status to narcotic agent; Z91.041 Radiographic dye allergy status; Z88.8 Allergy status to other drugs, medicaments and biological substances; Z79.899 Other long term (current) drug therapy
CPT/HCPCS: 36415; 80053; 81001; 83605; 83735; 83880; 84100; 84484; 85025; 86140; 87086; 87088; 87186; 93005; 96365; 99285; J0696

== ENCOUNTER 2021-09-07 11:10 | Emergency (ER) | payer MEDICARE, MEDICAID ==
[2021-09-07 11:30] VITALS: BP 157/81; PULSE 60
[2021-09-07 12:06] LABS: CHLORIDE,CL 101 mmol/L (98-107); SODIUM,NA 140 mmol/L (136-145)
[2021-09-07 12:21] LABS: CORONAVIRUS COVID-19 NAA NEGATIVE (NEGATIVE)
[2021-09-07] MEDS ORDERED: Calcium Chloride 10% 1 GM/10 ML Syringe IVPUSH ONE (12:26)
[2021-09-07 12:32] LABS: BASE EXCESS ARTERIAL -1 mmol/L ((-2)-(+3)); BICARBONATE,ARTERIAL 22.6 mmol/L (22-26); O2 DELIVERY DEVICE NASAL CANNULA; O2 SATURATION ARTERIAL 94 % (95-100); PCO2 ARTERIAL 35 mmHg (35-45); PO2 ARTERIAL 69 mmHg (70-100)
[2021-09-07 12:34] LABS: ALLEN TEST rb; O2 FLOW RATE 3
== END 2021-09-07 12:56 ==
LOC: DL.ED 11:10
DX: I50.9 Heart failure, unspecified (principal); E87.79 Other fluid overload; E87.5 Hyperkalemia; I25.10 Atherosclerotic heart disease of native coronary artery without angina pectoris; E11.9 Type 2 diabetes mellitus without complications; J44.9 Chronic obstructive pulmonary disease, unspecified; Z95.1 Presence of aortocoronary bypass graft; Z88.5 Allergy status to narcotic agent; Z91.041 Radiographic dye allergy status; Z88.8 Allergy status to other drugs, medicaments and biological substances; Z79.899 Other long term (current) drug therapy; Z20.822 Contact with and (suspected) exposure to COVID-19
CPT/HCPCS: 0240U; 36415; 36600; 71045; 80053; 80307; 82803; 83735; 83880; 85025; 86140; 93005; 96374; 99285

== ENCOUNTER 2021-09-20 23:42 | Emergency (ER) | payer MEDICAID, MEDICARE ==
[2021-09-20] MEDS ORDERED: Gabapentin 300 MG Cap PO ONE (23:43)
[2021-09-21 00:28] VITALS: BP 167/76; PULSE 59
[2021-09-21] MEDS ORDERED: Gabapentin 300 MG Cap PO ONE (00:38)
[2021-09-21] MEDS ORDERED: Gabapentin 300 MG Cap ONE (02:30)
== END 2021-09-21 01:25 | disposition home or self-care (01) ==
LOC: DL.ED 23:42
DX: R10.9 Unspecified abdominal pain (principal); G89.29 Other chronic pain; I25.10 Atherosclerotic heart disease of native coronary artery without angina pectoris; I48.91 Unspecified atrial fibrillation; I11.0 Hypertensive heart disease with heart failure; I50.9 Heart failure, unspecified; E11.9 Type 2 diabetes mellitus without complications; Z95.0 Presence of cardiac pacemaker; Z88.5 Allergy status to narcotic agent; Z91.041 Radiographic dye allergy status; Z88.8 Allergy status to other drugs, medicaments and biological substances; Z79.899 Other long term (current) drug therapy; Z87.891 Personal history of nicotine dependence
CPT/HCPCS: 99282; 99284; A9270

== ENCOUNTER 2021-10-11 14:20 | Emergency (ER) | payer MEDICARE ==
[2021-10-11 15:07] VITALS: BP 149/76; PULSE 57
[2021-10-11 15:44] LABS: ANION GAP 14.4 mEq/L (7-13); CHLORIDE,CL 103 mmol/L (98-107); SODIUM,NA 141 mmol/L (136-145)
[2021-10-11 15:45] LABS: ACETAMINOPHEN 0 ug/mL (10-30 (Therapeutic))
== END 2021-10-11 16:08 | disposition home or self-care (01) ==
LOC: DL.ED 14:20
DX: R26.81 Unsteadiness on feet (principal); T50.905A Adverse effect of unspecified drugs, medicaments and biological substances, initial encounter
CPT/HCPCS: 36415; 80053; 80143; 80179; 80307; 83605; 83735; 85025; 99283; 99284

== ENCOUNTER 2021-10-20 16:43 | Emergency (ER) | payer MEDICARE | END 2021-10-20 19:50 | disposition left against medical advice (07) | LOC: DL.ED 16:43 | DX: Z53.21 Procedure and treatment not carried out due to patient leaving prior to being seen by health care provider (principal) ==

== ENCOUNTER 2021-10-27 12:41 | Emergency (ER) | payer MEDICARE, MEDICAID ==
[2021-10-27 15:41] VITALS: BP 157/90; PULSE 73
[2021-10-27] MEDS ORDERED: Acetaminophen 500 MG Tab PO ONE (16:54)
== END 2021-10-27 18:10 | disposition home or self-care (01) ==
LOC: DL.ED 12:41
DX: M25.551 Pain in right hip (principal); M25.512 Pain in left shoulder; I11.0 Hypertensive heart disease with heart failure; I50.9 Heart failure, unspecified; J44.9 Chronic obstructive pulmonary disease, unspecified; E11.9 Type 2 diabetes mellitus without complications; Z86.16 Personal history of COVID-19; Z90.49 Acquired absence of other specified parts of digestive tract; Z90.710 Acquired absence of both cervix and uterus; Z79.899 Other long term (current) drug therapy; Z88.5 Allergy status to narcotic agent; Z91.041 Radiographic dye allergy status; Z88.6 Allergy status to analgesic agent
CPT/HCPCS: 99283; A9270-GY

== ENCOUNTER 2022-07-31 13:02 | Emergency (ER) | payer MEDICARE, MEDICAID, OTHER ==
[2022-07-31] MEDS ORDERED: Sodium Chloride 0.9% 10 ML Syringe FLUSH PRN (13:11)
[2022-07-31 14:00] LABS: PTT,PARTIAL THROMBOPLSTIN TIME 28.8 SEC (22.0-34.0)
[2022-07-31 14:05] LABS: ANION GAP 19.3 mEq/L (7-13); CHLORIDE,CL 98 mmol/L (98-107); SODIUM,NA 136 mmol/L (136-145)
[2022-07-31 14:08] LABS: ESTIMATED GFR 5 mL/min (>=60)
[2022-07-31 14:20] LABS: CORONAVIRUS COVID-19 NAA NEGATIVE (NEGATIVE); RESPIRATORY SYNCYTIAL VIR NAA NEGATIVE (NEGATIVE)
[2022-07-31] MEDS ORDERED: Ondansetron 4 MG/2 ML SDV IV ONE (14:44)
[2022-07-31] MEDS ORDERED: HYDROmorphone 0.5 MG/0.5 ML Syringe IVPUSH ONE (14:45)
[2022-07-31] MEDS ORDERED: Atropine/Diphenoxylate 0.025-2.5 MG Tab PO ONE (14:46)
[2022-07-31 15:30] VITALS: BP 106/70; PULSE 76
== END 2022-07-31 15:22 | disposition home or self-care (01) ==
LOC: DL.ED 13:02
DX: R19.7 Diarrhea, unspecified (principal); I13.2 Hypertensive heart and chronic kidney disease with heart failure and with stage 5 chronic kidney disease, or end stage renal disease; N18.6 End stage renal disease; I50.43 Acute on chronic combined systolic (congestive) and diastolic (congestive) heart failure; D63.1 Anemia in chronic kidney disease; I48.91 Unspecified atrial fibrillation; I25.10 Atherosclerotic heart disease of native coronary artery without angina pectoris; J44.9 Chronic obstructive pulmonary disease, unspecified; E11.9 Type 2 diabetes mellitus without complications; Z95.0 Presence of cardiac pacemaker; Z88.5 Allergy status to narcotic agent; Z91.041 Radiographic dye allergy status; Z88.8 Allergy status to other drugs, medicaments and biological substances; Z79.899 Other long term (current) drug therapy; Z20.822 Contact with and (suspected) exposure to COVID-19; Z99.2 Dependence on renal dialysis
CPT/HCPCS: 0241U; 36415; 71045; 74176; 80053; 82150; 83605; 83690; 83735; 83880; 84100; 84484; 85025; 85610; 85730; 87040; 96374; 96375; 99284-25; 99285; A9270-GY; J1170; J2405; J3490

== ENCOUNTER 2022-09-01 15:56 | Emergency (ER) | payer MEDICARE, MEDICAID, OTHER ==
[2022-09-01 16:13] VITALS: BP 149/74; PULSE 124
== END 2022-09-01 16:50 | disposition home or self-care (01) ==
LOC: DL.ED 15:56
DX: R00.0 Tachycardia, unspecified (principal); I44.7 Left bundle-branch block, unspecified; I13.2 Hypertensive heart and chronic kidney disease with heart failure and with stage 5 chronic kidney disease, or end stage renal disease; E11.22 Type 2 diabetes mellitus with diabetic chronic kidney disease; N18.6 End stage renal disease; I50.9 Heart failure, unspecified; D63.1 Anemia in chronic kidney disease; I25.119 Atherosclerotic heart disease of native coronary artery with unspecified angina pectoris; J44.9 Chronic obstructive pulmonary disease, unspecified; Z99.2 Dependence on renal dialysis; Z88.5 Allergy status to narcotic agent; Z91.041 Radiographic dye allergy status; Z88.8 Allergy status to other drugs, medicaments and biological substances; Z95.0 Presence of cardiac pacemaker; Z79.899 Other long term (current) drug therapy; Z86.16 Personal history of COVID-19
CPT/HCPCS: 93005; 93010; 99284; 99285

== ENCOUNTER 2022-09-28 22:56 | Emergency (ER) | payer MEDICAID, MEDICARE, OTHER ==
[2022-09-28 23:19] VITALS: BP 143/92; PULSE 104
== END 2022-09-29 00:59 | disposition home or self-care (01) ==
LOC: DL.ED 22:56
DX: K52.9 Noninfective gastroenteritis and colitis, unspecified (principal); I48.91 Unspecified atrial fibrillation; I25.119 Atherosclerotic heart disease of native coronary artery with unspecified angina pectoris; I11.0 Hypertensive heart disease with heart failure; I50.9 Heart failure, unspecified; J44.9 Chronic obstructive pulmonary disease, unspecified; E11.9 Type 2 diabetes mellitus without complications; E03.9 Hypothyroidism, unspecified; Z95.0 Presence of cardiac pacemaker; Z91.041 Radiographic dye allergy status; Z88.5 Allergy status to narcotic agent
CPT/HCPCS: 99283; 99284

== ENCOUNTER 2022-10-30 06:06 | Emergency (ER) | payer MEDICARE ==
[2022-10-30 06:23] LABS: BASOPHILS PERCENT AUTO 0.4 % (0.0-1.0); EOSINOPHILS PERCENT AUTO 3.9 % (1.0-3.0); HEMATOCRIT 40.2 % (37.0-47.0); HEMOGLOBIN 13.1 g/dL (12.0-16.0); LYMPHOCYTES PERCENT AUTO 13.6 % (20.5-50.1); MEAN CORPUSCULAR HEMOGLOBIN 31.8 pg (27.0-34.0); MEAN CORPUSCULAR HGB CONC 32.6 g/dL (33.0-35.0); MEAN CORPUSCULAR VOLUME 97.6 fL (80-100); MONOCYTES PERCENT AUTO 11.3 % (2-8); NEUTROPHILS PERCENT AUTO 70.8 % (42.2-75.2); PLATELET COUNT,PLT 116 10^3/uL (150-450); RED BLOOD CELL COUNT 4.12 10^6/uL (4.2-5.4); WHITE BLOOD CELL COUNT,WBC 5.6 10^3/uL (5.0-10.0)
[2022-10-30] MEDS ORDERED: Aspirin 325 MG Tab.EC PO ONE (06:29)
[2022-10-30] MEDS ORDERED: Aspirin 81 MG Tab.Chew PO ONE (06:32)
[2022-10-30] MEDS ORDERED: Metoprolol Tartrate 5 MG/5 ML SDV IVPUSH ONE (06:34)
[2022-10-30 06:48] LABS: LACTIC ACID 1.2 mmol/L (0.4-2.0)
[2022-10-30 06:55] LABS: A/G RATIO 0.94; ALBUMIN 3.2 g/dL (3.4-5.0); ANION GAP 13.7 mEq/L (7-13); BILIRUBIN TOTAL 0.7 mg/dL (0.2-1.0); C-REACTIVE PROTEIN 1.8 mg/dL (0.0-0.9); CALCIUM 8.7 mg/dL (8.5-10.1); CREATININE 4.64 mg/dL (0.55-1.02); EST CRCL DRUG DOSING (CG) 10.02 mL/min; MAGNESIUM 1.8 mg/dL (1.8-2.4); POTASSIUM,K 3.7 mmol/L (3.5-5.1); PROTEIN TOTAL,TP 6.6 g/dL (6.4-8.2)
[2022-10-30 07:01] LABS: INR 1.4 (0.9-1.2); PROTHROMBIN TIME 14.4 SEC (9.0-12.0)
[2022-10-30] MEDS ORDERED: cloNIDine 0.1 MG Tab PO ONE (07:38)
[2022-10-30] MEDS ORDERED: Bumetanide 1 MG Tab PO ONE (07:39)
[2022-10-30] MEDS ORDERED: amLODIPine 5 MG Tab PO ONE (07:40)
[2022-10-30 08:53] VITALS: BP 100/54; PULSE 102
== END 2022-10-30 09:09 | disposition home or self-care (01) ==
LOC: DL.ED 06:06
DX: R07.1 Chest pain on breathing (principal); R00.0 Tachycardia, unspecified; E11.22 Type 2 diabetes mellitus with diabetic chronic kidney disease; I13.2 Hypertensive heart and chronic kidney disease with heart failure and with stage 5 chronic kidney disease, or end stage renal disease; N18.6 End stage renal disease; I50.9 Heart failure, unspecified; I25.119 Atherosclerotic heart disease of native coronary artery with unspecified angina pectoris; I25.2 Old myocardial infarction; J44.9 Chronic obstructive pulmonary disease, unspecified; Z99.2 Dependence on renal dialysis; Z86.16 Personal history of COVID-19; Z88.5 Allergy status to narcotic agent; Z91.041 Radiographic dye allergy status; Z88.8 Allergy status to other drugs, medicaments and biological substances
CPT/HCPCS: 36415; 71045; 80053; 82150; 83605; 83690; 83735; 84484; 85025; 85610; 85730; 86140; 93005; 93010; 96374; 99285; A9270; J3490

== ENCOUNTER 2022-11-14 22:05 | Emergency (ER) | payer MEDICARE ==
[2022-11-14] MEDS ORDERED: Sodium Chloride 0.9% 10 ML Syringe FLUSH PRN (22:32)
[2022-11-14] MEDS ORDERED: Ketorolac 30 MG/ML SDV IVPUSH ONE (22:35)
[2022-11-14 22:54] LABS: BASOPHILS PERCENT AUTO 0.5 % (0.0-1.0); EOSINOPHILS PERCENT AUTO 6.1 % (1.0-3.0); HEMATOCRIT 38.3 % (37.0-47.0); HEMOGLOBIN 12.9 g/dL (12.0-16.0); MEAN CORPUSCULAR HEMOGLOBIN 33.4 pg (27.0-34.0); MEAN CORPUSCULAR HGB CONC 33.7 g/dL (33.0-35.0); MEAN CORPUSCULAR VOLUME 99.2 fL (80-100); MONOCYTES PERCENT AUTO 10.3 % (2-8); NEUTROPHILS PERCENT AUTO 74.1 % (42.2-75.2); PLATELET COUNT,PLT 121 10^3/uL (150-450); RED BLOOD CELL COUNT 3.86 10^6/uL (4.2-5.4); WHITE BLOOD CELL COUNT,WBC 6.1 10^3/uL (5.0-10.0)
[2022-11-14 23:17] LABS: ALANINE AMINOTRANSFERASE,ALT 13 U/L (14-59); ALBUMIN 2.6 g/dL (3.4-5.0); ALKALINE PHOSPHATASE 96 U/L (46-116); ANION GAP 12.6 mEq/L (7-13); ASPARTATE AMNIOTRANSFERASE,AST 17 U/L (15-37); BILIRUBIN TOTAL 0.5 mg/dL (0.2-1.0); BLOOD UREA NITROGEN,BUN 20 mg/dL (7-18); BUN/CREATININE RATIO 4.3 (No establ ref range); CARBON DIOXIDE,CO2 27 mmol/L (21-32); CHLORIDE,CL 103 mmol/L (98-107); CREATININE 4.64 mg/dL (0.55-1.02); EST CRCL DRUG DOSING (CG) 10.56 mL/min; GLUCOSE RANDOM 117 mg/dL (70-99); POTASSIUM,K 4.6 mmol/L (3.5-5.1); SODIUM,NA 138 mmol/L (136-145)
[2022-11-14 23:18] LABS: A/G RATIO 0.76; ESTIMATED GFR 10 mL/min (>=60); LIPASE < 10 U/L (73-393)
[2022-11-15] MEDS ORDERED: Take Home: Cephalexin 500 MG Cap, 6 Cap Pack PO ONE (01:42)
[2022-11-15] MEDS ORDERED: Cephalexin 500 MG Cap PO ONE (01:44)
[2022-11-15 03:46] VITALS: BP 112/67; PULSE 87
== END 2022-11-15 03:36 | disposition home or self-care (01) ==
LOC: DL.ED 22:05
DX: N30.00 Acute cystitis without hematuria (principal); J44.9 Chronic obstructive pulmonary disease, unspecified; E11.22 Type 2 diabetes mellitus with diabetic chronic kidney disease; N18.9 Chronic kidney disease, unspecified; I50.9 Heart failure, unspecified; Z88.5 Allergy status to narcotic agent; Z88.8 Allergy status to other drugs, medicaments and biological substances; Z91.041 Radiographic dye allergy status; I48.91 Unspecified atrial fibrillation; Z99.2 Dependence on renal dialysis
CPT/HCPCS: 36415; 74176; 80053; 83690; 84484; 85025; 93005; 96374; 99285; A9270; J1885; J3490

== ENCOUNTER 2022-11-21 15:35 | Emergency (ER) | payer MEDICARE ==
[2022-11-21] MEDS ORDERED: Sodium Chloride 0.9% 10 ML Syringe FLUSH PRN (16:02)
[2022-11-21 16:07] VITALS: BP 114/81; PULSE 98
[2022-11-21 16:10] LABS: BASOPHILS PERCENT AUTO 0.6 % (0.0-1.0); EOSINOPHILS PERCENT AUTO 6.7 % (1.0-3.0); HEMATOCRIT 38.9 % (37.0-47.0); LYMPHOCYTES PERCENT AUTO 10.6 % (20.5-50.1); MEAN CORPUSCULAR HEMOGLOBIN 32.3 pg (27.0-34.0); MEAN CORPUSCULAR HGB CONC 33.4 g/dL (33.0-35.0); MEAN CORPUSCULAR VOLUME 96.8 fL (80-100); MONOCYTES PERCENT AUTO 10.6 % (2-8); NEUTROPHILS PERCENT AUTO 71.5 % (42.2-75.2); PLATELET COUNT,PLT 139 10^3/uL (150-450); RED BLOOD CELL COUNT 4.02 10^6/uL (4.2-5.4); WHITE BLOOD CELL COUNT,WBC 5.4 10^3/uL (5.0-10.0)
[2022-11-21 16:29] LABS: ALANINE AMINOTRANSFERASE,ALT 12 U/L (14-59); ALBUMIN 2.9 g/dL (3.4-5.0); ALKALINE PHOSPHATASE 98 U/L (46-116); ASPARTATE AMNIOTRANSFERASE,AST 16 U/L (15-37); BILIRUBIN TOTAL 0.8 mg/dL (0.2-1.0); BLOOD UREA NITROGEN,BUN 9 mg/dL (7-18); BUN/CREATININE RATIO 2.9 (No establ ref range); CALCIUM 8.4 mg/dL (8.5-10.1); CARBON DIOXIDE,CO2 29 mmol/L (21-32); CHLORIDE,CL 100 mmol/L (98-107); CREATININE 3.06 mg/dL (0.55-1.02); EST CRCL DRUG DOSING (CG) 14.92 mL/min; GLUCOSE RANDOM 79 mg/dL (70-99); LACTIC ACID 1.2 mmol/L (0.4-2.0); MAGNESIUM 1.7 mg/dL (1.8-2.4); PROTEIN TOTAL,TP 6.2 g/dL (6.4-8.2); SODIUM,NA 135 mmol/L (136-145)
[2022-11-21 16:32] LABS: A/G RATIO 0.88; ESTIMATED GFR 16 mL/min (>=60)
[2022-11-21 16:39] LABS: B-TYPE NATRIURETIC PEPTIDE,BNP > 5000 pg/ml (0-100)
[2022-11-21] MEDS ORDERED: Levofloxacin/Dextrose 5%-Water 500 MG in Premix Bag 1 BAG IV ONE (17:12)
[2022-11-21 18:32] LABS: APPEARANCE,URINE CLOUDY (CLEAR); COLOR,URINE GREEN (YELLOW)
[2022-11-21 18:33] LABS: PH,URINE 7.5 (5.0-9.0)
[2022-11-21 18:34] LABS: GLUCOSE,URINE NEGATIVE (NEGATIVE); KETONES,URINE TRACE (NEGATIVE); PROTEIN,URINE >=300 (NEGATIVE)
[2022-11-21 18:35] LABS: BILIRUBIN,URINE NEGATIVE (NEGATIVE); NITRITE,URINE NEGATIVE (NEGATIVE); OCCULT BLOOD,URINE LARGE (NEGATIVE)
[2022-11-21 18:36] LABS: LEUKOCYTE ESTERASE,URINE LARGE (NEGATIVE)
[2022-11-21 18:37] LABS: AMORPHOUS SEDIMENT,URINE FEW /HPF (NOT SEEN); BACTERIA,URINE MANY /HPF (0-FEW/HPF); EPITHELIAL CELLS,URINE NOT SEEN /HPF (NOT SEEN); MUCUS,URINE FEW /LPF (NOT SEEN); RBC,URINE 20-30 /HPF (0-5); WBC,URINE PACKED /HPF (0-5/HPF)
== END 2022-11-21 19:48 | disposition home or self-care (01) ==
LOC: DL.ED 15:35
DX: N30.00 Acute cystitis without hematuria (principal); I48.91 Unspecified atrial fibrillation; I25.10 Atherosclerotic heart disease of native coronary artery without angina pectoris; I11.0 Hypertensive heart disease with heart failure; I50.9 Heart failure, unspecified; J44.9 Chronic obstructive pulmonary disease, unspecified; E11.9 Type 2 diabetes mellitus without complications; Z86.16 Personal history of COVID-19; Z88.5 Allergy status to narcotic agent; Z91.041 Radiographic dye allergy status; Z88.6 Allergy status to analgesic agent; Z79.899 Other long term (current) drug therapy
CPT/HCPCS: 36415; 51701; 71045; 80053; 81001; 83605; 83735; 83880; 84100; 84145; 84484; 85025; 87086; 87088; 87186; 93005; 93010; 96365; 99284; 99285-25; C1758; J1956

== ENCOUNTER 2023-04-05 13:44 | Observation (INO) | payer MEDICARE, OTHER ==
[2023-04-05 14:25] LABS: BASOPHILS PERCENT AUTO 0.5 % (0.0-1.0); EOSINOPHILS PERCENT AUTO 1.5 % (1.0-3.0); HEMATOCRIT 37.9 % (37.0-47.0); HEMOGLOBIN 12.2 g/dL (12.0-16.0); LYMPHOCYTES PERCENT AUTO 3.2 % (20.5-50.1); MEAN CORPUSCULAR HEMOGLOBIN 31.7 pg (27.0-34.0); MEAN CORPUSCULAR HGB CONC 32.2 g/dL (33.0-35.0); MEAN CORPUSCULAR VOLUME 98.4 fL (80-100); MONOCYTES PERCENT AUTO 4.5 % (2-8); NEUTROPHILS PERCENT AUTO 90.3 % (42.2-75.2); PLATELET COUNT,PLT 116 10^3/uL (150-450); RED BLOOD CELL COUNT 3.85 10^6/uL (4.2-5.4)
[2023-04-05 14:50] LABS: ALBUMIN 3.1 g/dL (3.4-5.0); ANION GAP 16.4 mEq/L (7-13); BILIRUBIN TOTAL 0.5 mg/dL (0.2-1.0); BUN/CREATININE RATIO 5.5 (No establ ref range); CALCIUM 8.8 mg/dL (8.5-10.1); CREATININE 6.15 mg/dL (0.55-1.02); EST CRCL DRUG DOSING (CG) 7.97 mL/min; POTASSIUM,K 4.4 mmol/L (3.5-5.1); PROTEIN TOTAL,TP 7.6 g/dL (6.4-8.2)
[2023-04-05 14:53] LABS: A/G RATIO 0.69
[2023-04-05] MEDS ORDERED: 50% Dextrose in Water 50 ML Syringe IVPUSH ONE ×2 (15:28→16:56)
[2023-04-05] MEDS ORDERED: Ketorolac 30 MG/ML SDV IM PRN (16:47)
[2023-04-05] MEDS ORDERED: Albuterol/Ipratropium 3.0-0.5 MG/3 ML Neb Soln NEB PRN (16:47)
[2023-04-05] MEDS ORDERED: Ondansetron 4 MG/2 ML SDV IVPUSH PRN (16:47)
[2023-04-05] MEDS ORDERED: Sodium Chloride 0.9% 10 ML Syringe FLUSH PRN (16:47)
[2023-04-05] MEDS ORDERED: HYDROmorphone 0.5 MG/0.5 ML Syringe IVPUSH PRN (16:47)
[2023-04-05] MEDS ORDERED: Naloxone 2 MG/2 ML Syringe IVPUSH PRN (16:47)
[2023-04-05] MEDS ORDERED: Ibuprofen 400 MG Tab PO PRN (16:51)
[2023-04-05] MEDS: Dextrose 5%-0.9% NaCl 1,000 ML IV SCH ×2 (17:07→20:57)
[2023-04-05] MEDS: 50% Dextrose in Water 50 ML Syringe ONE (18:37)
[2023-04-05] MEDS: 50% Dextrose in Water 50 ML Syringe IVPUSH PRN ×2 (18:37→22:43)
[2023-04-05] MEDS: Glucagon,Human Recombinant 1 MG Vial IM PRN ×2 (18:38→22:52)
[2023-04-05] MEDS: Glucagon,Human Recombinant 1 MG Vial ONE (18:38)
[2023-04-05] MEDS ORDERED: Simethicone 80 MG Tab.Chew PO PRN (18:43)
[2023-04-05] MEDS ORDERED: guaiFENesin/Dextromethorphan 100-10 MG/5 ML Soln 5 ML Cup PO PRN (19:41)
[2023-04-05] MEDS: Saccharomyces Boulardii (Probiotic) 250 MG Cap PO SCH (20:43)
[2023-04-05] MEDS: Metoprolol Succinate 50 MG Tab.ER PO SCH (20:43)
[2023-04-05] MEDS: Midodrine 5 MG Tab PO SCH (20:43)
[2023-04-05] MEDS: Loperamide 2 MG Cap PO SCH (20:43)
[2023-04-05] MEDS: Polyvinyl Alcohol 1.4% Ophth Soln 15 ML Bottle EYEBOTH SCH (20:44)
[2023-04-05] MEDS: Sodium Chloride 0.9% 10 ML Syringe FLUSH SCH (20:45)
[2023-04-05] MEDS ORDERED: CALCIUM ACETATE 667 MG PO SCH (21:00)
[2023-04-05] MEDS ORDERED: atorvaSTATin 20 MG Tab PO SCH (21:00)
[2023-04-05] MEDS: Insulin Lispro 100 Units/ML 3 ML Vial SUBCUT SCH ×2 (22:48→22:49)
[2023-04-06] MEDS: Dextrose 5%-0.9% NaCl 1,000 ML IV SCH ×2 (00:23→07:04)
[2023-04-06] MEDS: Insulin Lispro 100 Units/ML 3 ML Vial SUBCUT SCH ×10 (01:17→08:53)
[2023-04-06] MEDS: 50% Dextrose in Water 50 ML Syringe IVPUSH PRN ×3 (01:17→11:12)
[2023-04-06 05:51] LABS: BASOPHILS PERCENT AUTO 0.9 % (0.0-1.0); EOSINOPHILS PERCENT AUTO 4.6 % (1.0-3.0); HEMOGLOBIN 11.8 g/dL (12.0-16.0); LYMPHOCYTES PERCENT AUTO 12.2 % (20.5-50.1); MEAN CORPUSCULAR HEMOGLOBIN 34.4 pg (27.0-34.0); MEAN CORPUSCULAR HGB CONC 34.7 g/dL (33.0-35.0); MEAN CORPUSCULAR VOLUME 99.1 fL (80-100); NEUTROPHILS PERCENT AUTO 72.3 % (42.2-75.2); PLATELET COUNT,PLT 111 10^3/uL (150-450); RED BLOOD CELL COUNT 3.43 10^6/uL (4.2-5.4); WHITE BLOOD CELL COUNT,WBC 4.6 10^3/uL (5.0-10.0)
[2023-04-06 06:22] LABS: ALBUMIN 2.7 g/dL (3.4-5.0); ANION GAP 15.8 mEq/L (7-13); BILIRUBIN TOTAL 0.6 mg/dL (0.2-1.0); BUN/CREATININE RATIO 6.5 (No establ ref range); CALCIUM 7.9 mg/dL (8.5-10.1); EST CRCL DRUG DOSING (CG) 8.31 mL/min; MAGNESIUM 1.8 mg/dL (1.8-2.4); PHOSPHORUS 5.5 mg/dL (2.6-4.7); POTASSIUM,K 3.8 mmol/L (3.5-5.1); PROTEIN TOTAL,TP 6.3 g/dL (6.4-8.2)
[2023-04-06 06:25] LABS: A/G RATIO 0.75; CREATININE 5.67 mg/dL (0.55-1.02)
[2023-04-06] MEDS ORDERED: Midodrine 5 MG Tab PO ONE (08:26)
[2023-04-06] MEDS ORDERED: Gabapentin 100 MG Cap PO SCH ×3 (08:28→21:00)
[2023-04-06] MEDS: Midodrine 5 MG Tab PO SCH (08:32)
[2023-04-06] MEDS: Saccharomyces Boulardii (Probiotic) 250 MG Cap PO SCH (08:32)
[2023-04-06] MEDS: Loperamide 2 MG Cap PO SCH (08:32)
[2023-04-06] MEDS: Metoprolol Succinate 50 MG Tab.ER PO SCH (08:33)
[2023-04-06] MEDS: Sodium Chloride 0.9% 10 ML Syringe FLUSH SCH (08:33)
[2023-04-06] MEDS: Polyvinyl Alcohol 1.4% Ophth Soln 15 ML Bottle EYEBOTH SCH (08:51)
[2023-04-06] MEDS ORDERED: Flumazenil 0.1 MG/ML 5 ML MDV IVPUSH PRN (08:58)
[2023-04-06] MEDS ORDERED: LORazepam 2 MG/ML SDV IVPUSH ONE (08:58)
[2023-04-06] MEDS ORDERED: Non-Formulary Medication 1 Each (Calcium Acetate [Phoslo] 667 MG Cap) PO SCH (09:00)
[2023-04-06] MEDS ORDERED: Furosemide 80 MG Tab PO SCH (09:00)
[2023-04-06] MEDS ORDERED: Aspirin 81 MG Tab.Chew PO SCH (09:00)
[2023-04-06] MEDS ORDERED: [UNRECOGNIZED DRUG - REMARK] PO SCH (09:00)
[2023-04-06] MEDS: 50% Dextrose in Water 50 ML Syringe ONE (09:37)
[2023-04-06] MEDS: Glucagon,Human Recombinant 1 MG Vial ONE (09:38)
[2023-04-06 10:46] VITALS: BP 91/63; PULSE 89
[2023-04-06] MEDS ORDERED: Midodrine 5 MG Tab PO PRN (12:00)
== END 2023-04-06 11:40 | disposition home or self-care (01) ==
LOC: DL.ED 13:44 → UNDOADMOB 16:41 → DL.MS 16:41 → UNDOADMOB 16:47 → DL.MS 16:47 → UNDODISOB 04-06 11:40
PROVIDERS: ADMIT Internal Medicine; ATTEND Internal Medicine
DX: E11.649 Type 2 diabetes mellitus with hypoglycemia without coma (principal); G93.41 Metabolic encephalopathy; R41.82 Altered mental status, unspecified; E88.09 Other disorders of plasma-protein metabolism, not elsewhere classified; E83.39 Other disorders of phosphorus metabolism; I13.0 Hypertensive heart and chronic kidney disease with heart failure and stage 1 through stage 4 chronic kidney disease, or unspecified chronic kidney disease; N18.6 End stage renal disease; I50.9 Heart failure, unspecified; E11.22 Type 2 diabetes mellitus with diabetic chronic kidney disease; E11.42 Type 2 diabetes mellitus with diabetic polyneuropathy; J44.9 Chronic obstructive pulmonary disease, unspecified; Z99.2 Dependence on renal dialysis; E78.5 Hyperlipidemia, unspecified; I25.10 Atherosclerotic heart disease of native coronary artery without angina pectoris; Z86.16 Personal history of COVID-19; K21.9 Gastro-esophageal reflux disease without esophagitis; Z79.82 Long term (current) use of aspirin; Z79.899 Other long term (current) drug therapy
CPT/HCPCS: 36415; 80053; 82947; 83735; 84100; 85025; 96374; 99285; A9270; J1610; J2060; J7042; 96361; 96372; 96375; 96376; G0378; J3490

== ENCOUNTER 2023-06-10 14:50 | Emergency (ER) | payer MEDICARE, MEDICAID ==
[2023-06-10] MEDS ORDERED: Sodium Chloride 0.9% 10 ML Syringe FLUSH PRN (15:23)
[2023-06-10 15:45] LABS: BASOPHILS PERCENT AUTO 0.5 % (0.0-1.0); EOSINOPHILS PERCENT AUTO 5.1 % (1.0-3.0); HEMATOCRIT 33.2 % (37.0-47.0); HEMOGLOBIN 10.5 g/dL (12.0-16.0); LYMPHOCYTES PERCENT AUTO 11.3 % (20.5-50.1); MEAN CORPUSCULAR HEMOGLOBIN 31.8 pg (27.0-34.0); MEAN CORPUSCULAR HGB CONC 31.6 g/dL (33.0-35.0); MEAN CORPUSCULAR VOLUME 100.6 fL (80-100); MONOCYTES PERCENT AUTO 9.9 % (2-8); NEUTROPHILS PERCENT AUTO 73.2 % (42.2-75.2); PLATELET COUNT,PLT 102 10^3/uL (150-450); WHITE BLOOD CELL COUNT,WBC 6.3 10^3/uL (5.0-10.0)
[2023-06-10 16:06] LABS: ALBUMIN 2.8 g/dL (3.4-5.0); ANION GAP 12.4 mEq/L (7-13); BILIRUBIN TOTAL 0.7 mg/dL (0.2-1.0); BUN/CREATININE RATIO 6.5 (No establ ref range); C-REACTIVE PROTEIN 5.5 ng/dL (<=0.50); CREATININE 3.1 mg/dL (0.55-1.02); EST CRCL DRUG DOSING (CG) 13.97 mL/min; POTASSIUM,K 3.4 mmol/L (3.5-5.1); PROTEIN TOTAL,TP 7.4 g/dL (6.4-8.2)
[2023-06-10 16:12] LABS: A/G RATIO 0.61; LACTIC ACID 1.3 mmol/L (0.4-2.0)
[2023-06-10 17:31] VITALS: BP 112/72; PULSE 85
== END 2023-06-10 17:15 ==
LOC: DL.ED 14:50
DX: R78.81 Bacteremia (principal); I11.0 Hypertensive heart disease with heart failure; I50.9 Heart failure, unspecified; I25.10 Atherosclerotic heart disease of native coronary artery without angina pectoris; J44.9 Chronic obstructive pulmonary disease, unspecified; E78.5 Hyperlipidemia, unspecified; E11.9 Type 2 diabetes mellitus without complications; Z91.048 Other nonmedicinal substance allergy status; Z88.6 Allergy status to analgesic agent; Z86.16 Personal history of COVID-19; Z79.82 Long term (current) use of aspirin; Z79.899 Other long term (current) drug therapy
CPT/HCPCS: 36415; 71045; 80053; 83605; 83880; 84145; 85025; 86140; 87040; 96374; 99285; J3370; J7050; J3490

== ENCOUNTER 2023-08-17 16:13 | Emergency (ER) | payer MEDICARE, MEDICAID ==
[2023-08-17 16:42] LABS: BASOPHILS PERCENT AUTO 0.8 % (0.0-1.0); EOSINOPHILS PERCENT AUTO 9.1 % (1.0-3.0); HEMATOCRIT 33.4 % (37.0-47.0); HEMOGLOBIN 10.7 g/dL (12.0-16.0); LYMPHOCYTES PERCENT AUTO 16.2 % (20.5-50.1); MEAN CORPUSCULAR HEMOGLOBIN 33.8 pg (27.0-34.0); MEAN CORPUSCULAR VOLUME 105.4 fL (80-100); MONOCYTES PERCENT AUTO 8.7 % (2-8); NEUTROPHILS PERCENT AUTO 65.2 % (42.2-75.2); PLATELET COUNT,PLT 127 10^3/uL (150-450); RED BLOOD CELL COUNT 3.17 10^6/uL (4.2-5.4); WHITE BLOOD CELL COUNT,WBC 5.3 10^3/uL (5.0-10.0)
[2023-08-17 16:56] VITALS: BP 129/69; PULSE 85
[2023-08-17 17:01] LABS: ALBUMIN 3.9 g/dL (3.4-5.0); ANION GAP 12.1 mEq/L (7-13); BILIRUBIN TOTAL 0.5 mg/dL (0.2-1.0); BUN/CREATININE RATIO 6.3 (No establ ref range); CALCIUM 8.3 mg/dL (8.5-10.1); CREATININE 3.17 mg/dL (0.55-1.02); EST CRCL DRUG DOSING (CG) 11.86 mL/min; POTASSIUM,K 4.1 mmol/L (3.5-5.1); PROTEIN TOTAL,TP 7.7 g/dL (6.4-8.2)
[2023-08-17] MEDS: Aspirin 81 MG Tab.Chew PO ONE (17:49)
[2023-08-17] MEDS: Morphine 4 MG/ML Syringe IVPUSH ONE (18:02)
== END 2023-08-17 20:11 | disposition home or self-care (01) ==
LOC: DL.ED 16:13
DX: R07.89 Other chest pain (principal); I11.0 Hypertensive heart disease with heart failure; I50.9 Heart failure, unspecified; I25.10 Atherosclerotic heart disease of native coronary artery without angina pectoris; E11.9 Type 2 diabetes mellitus without complications; Z79.82 Long term (current) use of aspirin; Z79.899 Other long term (current) drug therapy; Z91.041 Radiographic dye allergy status; Z90.49 Acquired absence of other specified parts of digestive tract; Z90.710 Acquired absence of both cervix and uterus
CPT/HCPCS: 36415; 71045; 71250; 72128; 72131; 74176; 80053; 83880; 84484; 85025; 93005; 93010; 96374; 99284; 99285; J2270

== ENCOUNTER 2024-01-19 07:36 | Emergency (ER) | payer MEDICARE, MEDICAID ==
[2024-01-19] MEDS ORDERED: Sodium Chloride 0.9% 10 ML Syringe FLUSH PRN (07:53)
[2024-01-19 08:07] LABS: BASOPHILS PERCENT AUTO 0.2 % (0.0-1.0); EOSINOPHILS PERCENT AUTO 0.1 % (1.0-3.0); HEMATOCRIT 36.3 % (37.0-47.0); HEMOGLOBIN 11.3 g/dL (12.0-16.0); LYMPHOCYTES PERCENT AUTO 4.1 % (20.5-50.1); MEAN CORPUSCULAR HEMOGLOBIN 32.9 pg (27.0-34.0); MEAN CORPUSCULAR HGB CONC 31.1 g/dL (33.0-35.0); MEAN CORPUSCULAR VOLUME 105.8 fL (80-100); NEUTROPHILS PERCENT AUTO 86.6 % (42.2-75.2); PLATELET COUNT,PLT 104 10^3/uL (150-450); RED BLOOD CELL COUNT 3.43 10^6/uL (4.2-5.4); WHITE BLOOD CELL COUNT,WBC 11.2 10^3/uL (5.0-10.0)
[2024-01-19] MEDS: Acetaminophen 650 MG Supp RECTAL STA (08:22)
[2024-01-19 08:27] LABS: INR 1.4 (0.9-1.2); PROTHROMBIN TIME 13.7 SEC (9.0-12.0)
[2024-01-19 08:28] LABS: ALANINE AMINOTRANSFERASE,ALT 26 U/L (14-59); ALBUMIN 3.1 g/dL (3.4-5.0); ALKALINE PHOSPHATASE 92 U/L (46-116); ANION GAP 12.8 mEq/L (7-13); ASPARTATE AMNIOTRANSFERASE,AST 21 U/L (15-37); BILIRUBIN TOTAL 0.8 mg/dL (0.2-1.0); BLOOD UREA NITROGEN,BUN 26 mg/dL (7-18); BUN/CREATININE RATIO 6.3 (No establ ref range); CARBON DIOXIDE,CO2 28 mmol/L (21-32); CHLORIDE,CL 99 mmol/L (98-107); CREATINE KINASE,CK 93 U/L (16-191); CREATININE 4.14 mg/dL (0.55-1.02); GLUCOSE RANDOM 95 mg/dL (70-99); MAGNESIUM 1.8 mg/dL (1.8-2.4); POTASSIUM,K 4.8 mmol/L (3.5-5.1); PROTEIN TOTAL,TP 7.3 g/dL (6.4-8.2); SODIUM,NA 135 mmol/L (136-145)
[2024-01-19 08:31] LABS: A/G RATIO 0.74; ESTIMATED GFR 11 mL/min (>=60)
[2024-01-19 08:35] LABS: COLOR,URINE OTHER (YELLOW)
[2024-01-19 08:36] LABS: GLUCOSE,URINE NEGATIVE (NEGATIVE); PROTEIN,URINE >=300 (NEGATIVE)
[2024-01-19 08:39] LABS: BILIRUBIN,URINE NEGATIVE (NEGATIVE); KETONES,URINE TRACE (NEGATIVE); LEUKOCYTE ESTERASE,URINE LARGE (NEGATIVE); NITRITE,URINE NEGATIVE (NEGATIVE); OCCULT BLOOD,URINE LARGE (NEGATIVE); UROBILINOGEN,URINE 0.2 mg/dL (0.2-1.0)
[2024-01-19 08:41] LABS: PH,URINE 6.5 (5.0-9.0)
[2024-01-19 08:42] LABS: APPEARANCE,URINE TURBID (CLEAR)
[2024-01-19 08:43] LABS: LACTIC ACID 2.1 mmol/L (0.4-2.0)
[2024-01-19 08:47] LABS: BACTERIA,URINE MANY /HPF (0-FEW/HPF); EPITHELIAL CELLS,URINE FEW /HPF (NOT SEEN); RBC,URINE PACKED /HPF (0-5); WBC,URINE PACKED /HPF (0-5/HPF)
[2024-01-19 08:50] LABS: B-TYPE NATRIURETIC PEPTIDE,BNP 3860 pg/ml (0-100)
[2024-01-19 10:18] VITALS: BP 85/52; PULSE 87
[2024-01-19] MEDS ORDERED: Norepinephrine Bit/D5W Premix 250 ML ONE (10:34)
== END 2024-01-19 11:40 ==
LOC: DL.ED 07:36
DX: A41.9 Sepsis, unspecified organism (principal); N39.0 Urinary tract infection, site not specified; R41.82 Altered mental status, unspecified; R79.89 Other specified abnormal findings of blood chemistry; R74.02 Elevation of levels of lactic acid dehydrogenase [LDH]; I13.0 Hypertensive heart and chronic kidney disease with heart failure and stage 1 through stage 4 chronic kidney disease, or unspecified chronic kidney disease; I50.9 Heart failure, unspecified; N18.9 Chronic kidney disease, unspecified; J44.9 Chronic obstructive pulmonary disease, unspecified; I25.10 Atherosclerotic heart disease of native coronary artery without angina pectoris; E11.22 Type 2 diabetes mellitus with diabetic chronic kidney disease; Z95.0 Presence of cardiac pacemaker; Z86.16 Personal history of COVID-19; Z90.49 Acquired absence of other specified parts of digestive tract; Z90.710 Acquired absence of both cervix and uterus; Z99.2 Dependence on renal dialysis; Z79.899 Other long term (current) drug therapy; Z79.82 Long term (current) use of aspirin; Z91.041 Radiographic dye allergy status; Z88.5 Allergy status to narcotic agent
CPT/HCPCS: 31500; 36415; 43752; 71045; 80053; 81001; 82550; 83605; 83735; 83880; 84145; 84484; 85025; 85610; 85730; 87040; 87086; 87804; 93005; 96365; 96375; 99285; A9270; J3370; J3490; J7050; U0002; 93010